=== PATIENT | male | born 1985 | race Caucasian/White ===

== ENCOUNTER 2021-10-31 11:36 | Emergency (ER) | payer OTHER, SELFPAY ==
--- NOTE | ~2021-10-31 | CT_ITS ---
EXAMINATION: CT HEAD WITHOUT CONTRAST CT CERVICAL SPINE WITHOUT CONTRAST CLINICAL INFORMATION: Headache. Loss of consciousness. Injury. Evaluate for fracture. COMPARISON: No relevant prior imaging. TECHNIQUE: [employer] Maker images were obtained. CT imaging of the head and cervical spine was performed without contrast. Data was reformatted into multiplanar images at the acquisition workstation. This CT examination was performed using dose optimization techniques as appropriate, including one or more of the following: Automated exposure control, iterative reconstruction, and adjustment of technique factors (mA and/or kVp) according to patient size (this includes techniques or standardized protocols for targeted exams where dose is matched to indication/reason for exam). DLP: 1549 mGy-cm. FINDINGS: Head: There is no acute intracranial hemorrhage or abnormal extra-axial collection. No intracranial mass effect or midline shift. Lateral and third ventricles are normal. No hydrocephalus. Santana-white matter differentiation is preserved and there is no evidence of acute territorial infarct. The calvarium and skull base are intact. Mastoid air cells and middle ear cavities are well aerated. No active paranasal sinus disease. Cervical spine: Alignment is normal. Vertebral heights are preserved. No acute fracture. No abnormal prevertebral soft tissue swelling. Grossly no evidence of canal compromise. No bony neuroforaminal encroachment. Soft tissues of the neck including the thyroid gland are normal. Visualized lung apices are clear. CT/CT head/brain wo con IMPRESSION: Unremarkable CT scan of the head and cervical spine. No acute atrial hemorrhage. No acute cervical spine fracture.
--- NOTE | ~2021-10-31 | CT_ITS ---
EXAMINATION: CT ABDOMEN AND PELVIS WITHOUT CONTRAST CLINICAL INFORMATION: Bilateral upper quadrant pain. COMPARISON: None TECHNIQUE: Multidetector volumetric imaging was performed from the superior aspect of the liver through the pubic symphysis. Sagittal and coronal reformatted images were obtained on the technologist's workstation. This CT examination was performed using dose optimization techniques as appropriate, variously including the following: *Automated exposure control *Adjustment of mA and/or kV according to patient size (this includes techniques or standardized protocols for targeted exams where dose is matched to indication/reason for exam; i.e. extremities or head) *Use of iterative reconstruction technique DLP: 790 mGy-cm FINDINGS: LUNG BASES: There is minimal right basilar atelectatic change. The heart size is normal. LIVER, GALLBLADDER, AND BILIARY TREE: The liver is enlarged in size measuring 19 cm. Liver is shape, and diffusely attenuated. No focal hepatic lesion or biliary ductal dilatation is present. The gallbladder is unremarkable with no evidence of radiopaque gallstones, gallbladder wall thickening, or obvious pericholecystic inflammatory changes. PANCREAS: Unremarkable. SPLEEN: Unremarkable. ADRENAL GLANDS: Unremarkable. KIDNEYS AND URETERS: The kidneys are normal in size, shape, and attenuation. No hydronephrosis, hydroureter, or calculi seen. No perinephric stranding. BLADDER: Unremarkable. GASTROINTESTINAL TRACT: The small and large bowel are unremarkable. The appendix is unremarkable. ABDOMINAL WALL: Small lumbar canal hernia containing fat. LYMPH NODES: Normal. VASCULAR: Unremarkable. PELVIC VISCERA: Unremarkable. OSSEOUS STRUCTURES: Unremarkable. CT/CT abdomen pelvis wo con IMPRESSION: No acute intra-abdominal process seen. Especially no abnormality seen in the upper quadrants except for diffuse hepatic steatosis and mild hepatomegaly. Fleischner guidelines were followed.
--- NOTE | ~2021-10-31 | CT_ITS ---
EXAMINATION: CT HEAD WITHOUT CONTRAST CT CERVICAL SPINE WITHOUT CONTRAST CLINICAL INFORMATION: Headache. Loss of consciousness. Injury. Evaluate for fracture. COMPARISON: No relevant prior imaging. TECHNIQUE: Shoulder Joiner images were obtained. CT imaging of the head and cervical spine was performed without contrast. Data was reformatted into multiplanar images at the acquisition workstation. This CT examination was performed using dose optimization techniques as appropriate, including one or more of the following: Automated exposure control, iterative reconstruction, and adjustment of technique factors (mA and/or kVp) according to patient size (this includes techniques or standardized protocols for targeted exams where dose is matched to indication/reason for exam). DLP: 1549 mGy-cm. FINDINGS: Head: There is no acute intracranial hemorrhage or abnormal extra-axial collection. No intracranial mass effect or midline shift. Lateral and third ventricles are normal. No hydrocephalus. Santana-white matter differentiation is preserved and there is no evidence of acute territorial infarct. The calvarium and skull base are intact. Mastoid air cells and middle ear cavities are well aerated. No active paranasal sinus disease. Cervical spine: Alignment is normal. Vertebral heights are preserved. No acute fracture. No abnormal prevertebral soft tissue swelling. Grossly no evidence of canal compromise. No bony neuroforaminal encroachment. Soft tissues of the neck including the thyroid gland are normal. Visualized lung apices are clear. CT/CT cervical spine wo con IMPRESSION: Unremarkable CT scan of the head and cervical spine. No acute atrial hemorrhage. No acute cervical spine fracture.
--- NOTE | ~2021-10-31 | XR_ITS ---
EXAMINATION: CHEST AND LEFT RIBS. RIGHT SHOULDER. CLINICAL INFORMATION: Injury rule out fracture. Pain left wrist and right shoulder COMPARISON: None TECHNIQUE: Chest and left RIBS 4 views. Right shoulder 4 views. FINDINGS: Chest: The lungs are well-expanded and clear of acute process. Heart size and pulmonary vascularity is normal. There is no pneumothorax or pleural effusion. No gross bony abnormality. Multiple views left RIBS reveal no visible fracture or dislocation. Right shoulder: There is loss of glenohumeral joint space with periarticular spurring. The AC joint space is reduced as well. No visible acute fracture, dislocation or subluxation seen. No abnormal soft tissue swelling seen. XR/XR ribs LT min 3V w CXR1V IMPRESSION: Unremarkable chest and left shoulder exam. Mild degenerative changes right shoulder and AC joint.
--- NOTE | ~2021-10-31 | XR_ITS ---
EXAMINATION: CHEST AND LEFT RIBS. RIGHT SHOULDER. CLINICAL INFORMATION: Injury rule out fracture. Pain left wrist and right shoulder COMPARISON: None TECHNIQUE: Chest and left RIBS 4 views. Right shoulder 4 views. FINDINGS: Chest: The lungs are well-expanded and clear of acute process. Heart size and pulmonary vascularity is normal. There is no pneumothorax or pleural effusion. No gross bony abnormality. Multiple views left RIBS reveal no visible fracture or dislocation. Right shoulder: There is loss of glenohumeral joint space with periarticular spurring. The AC joint space is reduced as well. No visible acute fracture, dislocation or subluxation seen. No abnormal soft tissue swelling seen. XR/XR shoulder RT min 2V IMPRESSION: Unremarkable chest and left shoulder exam. Mild degenerative changes right shoulder and AC joint.
[2021-10-31 12:14] VITALS: BP 158/95; PULSE 90; RESP 18; TEMP 36.7; O2SAT 95; BMI 31.5
[2021-10-31 13:39] LABS: MANUAL DIFF FLAG NO
[2021-10-31 13:40] LABS: Basophils Percent Auto 0.4 % (0-2); Eosinophils Absolute Auto 0.1 X10*3/uL (0.0-0.4); Eosinophils Percent Auto 0.9 % (0-4); Hematocrit 39.6 % (42.0-52.0); Hemoglobin 13.7 g/dl (14.0-18.0); Imm Gran Abs Auto 0.03 X10*3/uL (0.00-0.03); Imm Gran Pct Auto 0.3 % (0.0-0.4); Lymphocytes Absolute Auto 2.3 X10*3/uL (1.2-4.9); Lymphocytes Percent Auto 20.1 % (20-40); Mean Corpuscular HGB Conc 34.6 g/dl (31.0-36.0); Mean Corpuscular Hemoglobin 30.5 pg (27.0-33.0); Mean Corpuscular Volume 88.2 fL (80.0-98.0); Mean Platelet Volume 8.9 fL (9.4-12.4); Monocytes Percent Auto 9.2 % (2-11); Neutrophils Absolute Auto 7.8 x10*3/uL (2.0-8.3); Neutrophils Percent Auto 69.1 % (45-73); Platelet Count 312 X10*3/uL (160-400); Red Blood Count 4.49 X10*6/uL (4.60-5.80); White Blood Count 11.3 X10*3/uL (4.8-10.8)
[2021-10-31 14:23] LABS: Alanine Aminotransferase 144 U/L (0-40); Albumin Level 4.2 g/dL (3.5-5.0); Alkaline Phosphatase 94 U/L (39-117); Anion Gap 13 (12-20); Aspartate Amino Transferase 73 U/L (5-37); Bilirubin Direct 0.3 mg/dL (0.0-0.5); Bilirubin Total 0.7 mg/dL (0.0-1.0); Blood Urea Nitrogen 10 mg/dL (9-16); Calcium 9.2 mg/dL (8.4-10.2); Carbon Dioxide 24 mmol/L (22-29); Chloride 107 mmol/L (96-108); Estimated Glomerular Filt Rate > 60; Glucose Random 106 mg/dL (60-115); Potassium 3.9 mmol/L (3.3-5.1); Sodium 140 mmol/L (135-145); Total Protein 7.5 g/dL (6.5-8.0)
[2021-10-31 14:31] LABS: Appearance Urine CLEAR; Color Urine YELLOW; Glucose Urine UA NEG (NEG); Leukocyte Esterase Urine NEG (NEG); Nitrite Urine NEG (NEG); Specific Gravity - Urine <= 1.005 (1.005-1.025); Urine Blood NEG (NEG); Urine Ketones NEG (NEG); Urine Protein NEG (NEG-TRACE)
[2021-10-31 16:31] VITALS: BP 137/69; PULSE 77; RESP 18; TEMP 37.1; O2SAT 98
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
== END 2021-10-31 16:58 | disposition home or self-care (01) ==
PROVIDERS: Physician Assistant Medical; Emergency Provider Emergency Medicine; PCP Family Medicine
DX: S06.0X9A Concussion with loss of consciousness of unspecified duration, initial encounter (principal); S46.911A Strain of unspecified muscle, fascia and tendon at shoulder and upper arm level, right arm, initial encounter; R07.81 Pleurodynia; M54.2 Cervicalgia; M54.50 Low back pain, unspecified; V47.5XXA Car driver injured in collision with fixed or stationary object in traffic accident, initial encounter; Y93.9 Activity, unspecified; Y92.410 Unspecified street and highway as the place of occurrence of the external cause; Y99.9 Unspecified external cause status; R10.9 Unspecified abdominal pain; Z79.899 Other long term (current) drug therapy
CPT/HCPCS: 36415; 70450; 71101; 72125; 73030; 74176; 80048; 80076; 81003; 85025; 99284

== ENCOUNTER 2024-08-01 13:24 | Emergency (ER) | payer BC, SELFPAY ==
[2024-08-01 14:03] VITALS: BP 133/93; PULSE 88; RESP 18; TEMP 36.2; O2SAT 95; BMI 32.8
--- NOTE | 2024-08-01 14:25 | ED.GENADULT ---
HPI - General Adult General Chief complaint: Back Pain/Injury Stated complaint: back pain Time Seen by Provider: 08/01/24 14:13 Source: patient Mode of arrival: ambulatory Limitations: no limitations History of Present Illness ED Provider: Doron Huffman HPI narrative: 39 yold male with pmh of chronic back pain presents to the ED for back pain exacerbation. patient denies any recent trauma, abdominal pain, nasuea, vomitting, genitourinary symptoms, or any urinary/bowel incontinence. patient denies any IV drug use. Patient has MRI scheduled for 08/06/2024. Related Data Previous Rx's ?Medication ?Instructions ?Recorded prednisone 20 mg tablet 40 mg (2 x 20 mg) PO DAILY 5 days 08/01/24 #10 tabs Allergies Allergy/AdvReac Type Severity Reaction Status Date / Time No Known Allergies Allergy Verified 08/01/24 14:05 [No Known Allergies*] Review of Systems Review of Systems: chronic back pain exacerbation. Yes all other systems are reviewed and are negative PMFSH Social History Social History Advance Directives: No Advance Directives Information Provided: No Physical Exam ED Vital Signs: Vital Signs - 24 hr 08/01/24 14:03 Temperature 97.1 F Pulse Rate 88 Respiratory Rate 18 Blood Pressure 133/93 H Pulse Oximetry 95 BMI result Body Mass Index 32.8 Const General: cooperative, healthy appearing, comfortable, no acute distress, well developed, alert, awake and Physically active Orientation/consciousness: patient oriented x3 HENMT Head: Yes normal to inspection, Yes No palpable skull fracture present, Yes normocephalic and Yes atraumatic Throat: Yes posterior oropharynx normal, Yes tonsils normal and Yes uvula midline Eyes General: appearance normal, both eyes and all related structures Neck Neck: Yes normal visual inspection, Yes full ROM, Yes no lymphadenopathy, Yes no meningeal signs, Yes trachea midline, Yes supple, No anterior neck swelling and No lymphadenopathy Chest Chest palpation & inspection: normal inspection of the chest and normal palpation of entire chest wall Resp Effort & Inspection: normal respiratory effort and able to speak in complete sentences Auscultation: clear to auscultation bilaterally Cardio Jugular venous distension: no JVD Heart sounds: S1 normal heart sound present and S2 normal heart sound present GI Inspection: Yes normal to inspection Palpation (GI): Soft to palpation, not firm, nontender, no guarding and not rigid General: Yes no CVA tenderness Back/Spine/Pelvis Back: no CVA tenderness and back tenderness (lumbar spine tenderness) Skin General skin exam: no rashes or lesions noted, elasticity normal and turgor normal Neuro General: patient oriented x3, gait normal, tone normal, moves all extremities, Normal light touch and pain sensation, no meningeal signs, no focal motor deficits and CN's II-XI intact bilaterally Extrem General: Yes normal to inspection, Yes full ROM and Yes capillary refill normal Psych Appearance: grossly normal, well kempt and not disheveled Medications Administered Discontinued Medications Generic Name Dose Route Start Last Admin Trade Name Freq PRN Reason Stop Dose Admin Ketorolac Tromethamine 30 mg 08/01/24 14:13 08/01/24 14:27 Ketorolac Tromethamine 30 Mg/Ml Vial IM 08/01/24 14:14 30 mg ONCE ONE Administration Medical Decision Making Medical Decision Making MDM Narrative: 39 yold male with pmh of chronic back pain presents to the ED for chronic back pain exacerbation. Patient denies any recent trauma. Patient denies any urinary/bowel incontinence, paralysis of extremities, or history of IV drug use. Patient does not want repeat x-ray patient has multiple x-rays in the past. Patient has a scheduled MRI for the 06 of August. Patient just wants pain medication. Patient has naproxen and cyclobenzaprine prescription being sent by PCP. Patient will be discharged with steroids. Patient given Toradol. Patient explained worrisome signs and informed to return to the ED immediately. Not suspecting cauda equinus, epidural abscess, osteomyelitis, kdiney stones, UTI, pylenoprhreitis, or any other life-threatening etiology. Differential Diagnosis Differential Diagnoses: The differential diagnosis associated with the presentation includes (Chronic back pain) Admission/Observation Consideration of admission/observation: Escalation of care including admission/observation considered Independent Historian Clinical information obtained from an independent historian. History obtained from or confirmed by: Other (Patient) Prescription Management I considered prescription management with: Pain Medication Discharge Plan Discharge Clinical Impression: Lumbar radiculopathy Patient Disposition: Home, Self-Care Instructions: Lumbar Radiculopathy (ED) Additional Instructions: Recommend follow-up with your primary care provider. Return to the ED immediately for any urinary/bowel incontinence, severe back pain, paralysis of lower extremities, genital numbness, abdominal pain, dysuria, hematuria, flank pain, fever, chills, or any other concerning symptoms. Continue taking naproxen and cyclobenzaprine prescribed by her PCP. You will be also discharged with prednisone Prescriptions: New prednisone 20 mg tablet 40 mg PO DAILY 5 Days Qty: 10 0RF Stand Alone Forms: Work/School Release Discharge Date/Time: 08/01/24 14:39 Print Language: Upper Sorbian
[2024-08-01] MEDS: Ketorolac Tromethamine 30 MG/ML VIAL IM (14:27)
--- OUTSIDE RECORDS SUMMARY | 2024-08-01 17:35 | XMS_ITS | Encounter Summary ---
Author Name [facility] [place] [facility] [facility] [place] Address [address] [place] [address] Care Team Providers Care Riprap Man Name Role Phone CEDRIC CLARK Primary Care Provider Kraig roca Insurance Providers: All historical and current Section Date Range: From patient's date of to the date document was created. This section includes the names of all active insurance providers for the patient. Insurance Provider Type of Coverage Plan Name Start of Policy Coverage End of Policy Coverage Group Number Member ID Insurance Provider's Telephone Number Policy Brooks's Name Patient's Relationship to Policy Brooks [facility] Dec 04, 2023 [id number] [phone] FR SARBJIT HAYES PATIENT Selected Encounter This section includes the information on record at [place] for the Encounter. Date/Time Encounter Type Encounter Description Reason Provider Source Feb 15, 2024 03:00 PM PSYTX W PT 60 MINUTES [facility] - IND ICD-10-CM F33.8 Other recurrent depressive disorders KRANTHI RIVERA Encounter Template Text not used by [place] Assessments - Encounter Diagnoses This section includes the primary and secondary diagnoses documented for the Encounter. Date/Time Primary/Secondary Diagnosis Diagnosis Name Provider Source Feb 15, 2024 04:03 PM PRIMARY Other recurrent depressive disorders KRANTHI RIVERA [place] [facility] [place] [facility] Plan of Treatment: Future Appointments (+ 6 months) and Future Tests (+/- 45 days) The Plan of Treatment section includes future care activities for the patient [facility] [place] [facility] This section includes future appointments and future orders which are active, pending or scheduled. Future Appointments This section includes appointments that were scheduled to occur 6 months from the date of the Encounter, up to a maximum of 20 appointments. The data comes from all [facility]. Appointment Date/Time Appointment Type Appointme nt Facility Name Feb 16, 2024 03:00 PM AM[place]ULATORY - [place]ICINE [place] [facility] [place] [facility] Feb 29, 2024 03:00 PM AMBULATORY - [place]CHIATRY [place] [facility] [place] [facility] Mar 12, 2024 01:00 PM AMBULATORY - [place]ICINE [place] [facility] [place] [facility] Mar 14, 2024 03:00 PM AMBULATORY - [place]IATRY [place] [facility] [place] [facility] Mar 28, 2024 03:00 PM AMBULATORY - [place]IATRY [place] [facility] [place] [facility] Apr 18, 2024 03:00 PM AMBULATORY - [place]IATRY [place] [facility] [place] [facility] May 01, 2024 03:00 PM AMBULATORY - [place]IATRY [place] [facility] [place] [facility] May 08, 2024 10:00 AM AMBULATORY - [place]ICINE [place] [facility] [place] [facility] May 16, 2024 03:00 PM AMBULATORY - PS[place]IATRY [place] [facility] [place] [facility] Jul 18, 2024 03:00 PM AMBULATORY - [place]IATRY [place] [facility] [place] [facility] Jul 24, 2024 10:30 AM AMBULATORY - [place]IATRY [place] [facility] [place] [facility] Aug 01, 2024 03:00 PM AMBULATORY - [place]IATRY [place] [facility] [place] [facility] Active, Pending, and Scheduled Orders This section includes a listing of several types of active, pending, and scheduled orders, including clinic medications orders, diagnostic test orders, procedure orders and consult orders; where the start date of the order is 45 days before the date of the Encounter or 45 days after the date of theEncounter. The data comes from all [facility]. Test Date/Time Test Type Test Details Facility Name Feb 16, 2024 12:00 AM Laboratory - Chemi stry Order CBC BLOOD (LAV-BLOOD) SP [facility] Feb 16, 2024 12:00 AM Laboratory - Chemi stry Order OCCULT BLOOD FIT X1 SCREEN(IN-HOUSE) STOOL FECES SP [facility] Feb 16, 2024 12:00 AM Laboratory - Chemi stry Order UREA NITROGEN BLOOD (SST-SERUM) SP [facility] Feb 16, 2024 12:00 AM Laboratory - Chemi stry Order HEPATITIS B SURFACE ANTIBODY (HBsAb)-WH BLOOD (SST-SERUM) SP [facility] Social History: Smoking Status (Most current) and Tobacco Use (All prior to encounter date) This section includes the most current, and the historical, smoking and tobacco- related health factors from the [place] facility where the Encounter took place. Current Smoking Status This section includes the most current smoking, or tobacco-related health factor, from the [place] facility where the Encounter took place. Date/Time Current Smoking Status Comment Facil ity Aug 11, 2023 03:00 PM VA-TOBACCO NEVER USED [facility] Tobacco Use History This section includes a history of the smoking, or tobacco-related health factors, that were collected on or before the date of the Encounter. The data comes from the [place] facility where the Encounter took place. Date/Time Smoking Status/Tobacco Use Comment F acility Aug 12, 2022 03:30 PM VA-TOBACCO NEVER USED [facility] Aug 12, 2021 03:30 PM VA-TOBACCO NEVER USED [facility] Aug 03, 2020 03:00 PM VA-TOBACCO NEVER USED [facility] Radiology Reports: +/- 30 days of the encounter Radiology Reports For cases when an order for radiology services may have been completed prior to the date of the Encounter, the report list includes the Radiology Reports that were completed up to 30 days before dateof the Encounter. For cases when an order for radiology services may have been completed after the date of the Encounter, the report list also includes the Radiology Reports that were completed up to30 days after date of the Encounter. The data comes from all [place] treatment facilities. 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 Comparison: None. Findings: The bony mineralization is normal. No soft tissue swelling is identified. There is no bony fracture, dislocation or subluxation. The plantar arch is maintained. No calcaneal spurs are seen. Trace punctate calcific enthesopathy at the Achilles tendon insertion upon the superior calcaneus. Likely small accessory ossicle adjacent to the proximal aspect of the right fifth metatarsal bone. The foot joint spaces are normal and well-maintained. No acute bony abnormality is seen. Impression: No acute bony abnormality, as described above. Primary Diagnostic Code: No immediate attention required Primary Interpreting Staff: SUSHMA POWELL JR, Radiologist (Language Pathologist) /SUSHMA MAGUIRE JR [facility] Encounter Notes: All associated encounter notes This section contains the clinical notes associated to the Encounter. Date/Time Encounter Note(s) Provider Source Feb 15, 2024 03:22 PM TELEHEALTH NOTE: LOCAL TITLE: [place] [facility] PSYCHOLOGY NOTE STANDARD TITLE: TELEHEALTH NOTE DATE OF NOTE: FEB 15, 2024@15:22 ENTRY DATE: FEB 15, 2024@15:22:11 AUTHOR: ROBER RIVERA EXP COSIGNER: URGENCY: STATUS: COMPLETED BHIP Individual Therapy Note (VVC) [place] [facility] (cl[facility] to non-[facility] location) 's location: Provider confirmed that Axel is currently located at Primary Address listed in [place] [facility] consult and verified the contact phone number has provided verbal consent either today or previously when seen via [facility] in mental health. This consent was obtained after a full explanation of the risk and benefits of using telehealth for mental health appointments. Alternatives for obtaining care through an in-person mental health visit and the 's right of refusal at any time during this session have been explained. 's location/environment was surveyed by this provider to identify all participants and the Virtual Medical Room was locked (via enabling button option in VMR) once all invited/required attendees were present. [place] identified with 2 identifiers: [X] Patient Name [X] Visual recognition Procedure: The patient was seen for a 55-minute [facility] individual psychotherapy session The Outpatient Individual Psychotherapy Services Agreement was reviewed on 02/15/24. Agreed to meet for 8 weekly to twice monthly individual therapy appointments utilizing aspects of Acceptance and Committment Therapy. Problem: Difficulty managing distressing thoughts and feelings related to stressors and deaths of loved ones Objectives: Axel will engage in individual, weekly psychotherapy to increase his ability to tolerate distressing emotional experiences and to engage in behaviors that are consistent with his values. Progress: spoke about use of acceptance since last session. He reflected on worry thoughts and fears about the upcoming winter weather and the potential impact on his mood. Considered ways to defuse from these. Explored a metaphor related to his expectations of a favorite food (chicken parm) and engaged in a defusion word practice repeating the phrase cold and dark. [place] explored ideas about how he can give himself space and breathe into the fall rather than bracing against it and assuming he will not be able to cope with aspects of winter. He committed to utilize these ideas between now and the next session. Assessment: Axel arrived on time and was dressed appropriately with appropriate hygiene. He maintained appropriate eye contact and was alert. spoke clearly and coherently. His thoughts were linear and related. His affect was congruent to content and appropriate in range. There was no evidence of AH/VH or delusions. There was no evidence of SI or HI. Axel was future oriented, clearly invested in improving the quality of his life. He reported a history of passive, fleeting suicidal ideation without lifetime intent, plan, or behavior. [place] was reminded of emergency resources through this [facility] and the [facility] Line number. Thus, current assessment of risk for suicide and homicide is low. DSM 5 Diagnostic Impressions Per Chart: Major Depressive Disorder, mild Plan: 's next visit is scheduled for February at 3pm via VV. He requested to receive [facility] measures via text message on at 11am. /jonathan/ Rober Rivera, PhD Clinical Psychologist, [facility] Health Clinic Signed: 02/15/2024 16:03 ROBER RIVERA [place] [facility] [place] [facility] Feb 15, 2024 03:03 PM MENTAL HEALTH DIAG NOSTIC STUDY NOTE: LOCAL TITLE: MENTAL HEALTH DIAGNOSTIC STUDY STANDARD TITLE: MENTAL HEALTH DIAGNOSTIC STUDY NOTE DATE OF NOTE: FEB 15, 2024@15:03:54 ENTRY DATE: FEB 15, 2024@15:03:54 AUTHOR: ROBER RIVERA EXP COSIGNER: URGENCY: STATUS: COMPLETED Assessments were sent to the [place] via text/email. These assessments were completed by TRACY HAYES on their own device on 02/15/2024 3:02:13 PM. PATIENT HEALTH QUESTIONNAIRE-9 (PHQ-9) The patient reported some symptoms of depression; symptoms are not consistent with a major depressive episode. Patient reported being bothered by the following over the last 2 weeks: 1. Little interest or pleasure: Not at all 2. Feeling down, depressed or hopeless: Several Days 3. Trouble sleeping: Several Days 4. Tired, low energy: More than half the days 5. Poor appetite, over-eating: Several Days 6. Feelings of failure, guilt: Not at all 7. Trouble concentrating: Several Days 8. Motor retardation, agitation: Not at all 9. Thoughts better off /hurting self: Not at all PHQ-9 total score = 6 1-4 = minimal symptoms 5-9= mild symptoms 10-14= moderate symptoms 15-19= moderately severe symptoms 20-27= severe depressive symptoms The patient stated that the depressive symptoms made it somewhat difficult to work, take care of things at home, or get along with others. PHQ-9 Total Score (past 180 days): 02/15/2024 6 02/01/2024 11 01/18/2024 9 01/11/2024 7 01/04/2024 9 12/21/2023 6 12/01/2023 4 11/16/2023 4 10/19/2023 7 09/14/2023 4 THE ACCEPTANCE AND ACTION QUESTIONNAIRE-II (AAQ-II) The patient rated how true each statement is for them as follows: 1. It's OK if I remember something unpleasant: Seldom true 2. My painful experiences and memories make it difficult for me to live a life that I would value: Very seldom true 3. I am afraid of my feelings: Seldom true 4. I worry about not being able to control my worries and feelings: Seldom true 5. My painful memories prevent me from having a fulfilling life: Very seldom true 6. I am in control of my life: Sometimes 7. Emotions cause problems in my life: Very seldom true 8. It seems like most people are handling their lives better than I am: Never true 9. Worries get in the way of my success: Seldom true 10. My thoughts and feelings do not get in the way of how I want to live my life: Seldom true Total Score: 50 Scores range from 10 to 70 with higher scores indicating greater psychological flexibility. AAQ-II Total Score (past 180 days): 02/15/2024 50 01/18/2024 40 01/11/2024 54 12/21/2023 45 12/01/2023 47 11/16/2023 52 10/19/2023 50 09/14/2023 43 /es/ Rober Rivera, PhD Clinical Psychologist, [facility] Health Clinic Signed: 02/15/2024 15:04 ROBER RIVERA [facility]
--- OUTSIDE RECORDS SUMMARY | 2024-08-01 17:35 | XMS_ITS | Continuity of Care Document ---
Author Name DOD-ME Organization DOD-ME Care Team Providers Care Head Of Business Development Name Role Phone DOD-ME Unavailable Unavailable Problems Combined list of problems from Department of Defense and Veterans Affairs facilities. It does not include entries that were removed or entered in error. Problem Status Onset Date Problem Type Date of Resolution Comments Source visit for: services physical Inactive Condition DoD Other Physical Therapy Inactive Condition DoD Patient Education - Injury Prevention Inactive Condition DoD Alcohol abuse Active Condition Dec Entered By: RAAD MCNALLY Comment: Alcohol Use Disorder, Mild [facility] Back pain Active Condition [facility] BRCA2 gene mutation detected Active Condition [facility] Constipation Active Condition [facility] COVID-19 Active Condition [facility]ressive disorder Active Condition [facility] Genital herpes simplex type 2 Active Condition [facility] HTN - Hypertension (SCT [id number]) Active Condition [facility] Hyperlipidemia (SCT 95382159) Active Condition [facility] Liver enzymes abnormal Active Condition [facility] Major depressive disorder Active Condition [facility] Pain in left knee Active Condition [facility] Diagnosis: ICD-10-CM 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 [facility] Diagnosis: ICD-10-CM M79.671 Pain in right foot Active Diagnosis [facility] Diagnosis: ICD-10-CM I78.1 Nevus, non-neoplastic Active Diagnosis [facility] Diagnosis: ICD-10-CM 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 Medication Details Route Status Patient Instructions Prescription Expires Prescription Number Last Dispense Date Ordering Provider Order Date Order Qty Source DICLOFENAC NA 1% GEL,TOP APPLY 2 GRAMS TOPICALL Y FOUR TIMES A DAY FOR HEEL PAIN - USE DOSING CARD PROVIDED IN BOX APPLY SMALL AMOUNT TO HEEL 3-4 TIMES DAILY TOPICA L 06/07/2024 [id number] ALLISON FOSTER 2023 100 [facility] FLUTICASONE PROPIONATE 50MCG/SPRAY SOLN,NASAL, 16GM INSTILL 1 SPRAY INTO EACH NOSTRIL TWICE DAILY FOR NASAL IRRITATI ON/INFLA MMATION NASAL ACTIVE 08/11/2024 [id number] CEDRIC CLARK 2023 1 [facility] TRETINOIN 0.025% GEL,TOP APPLY THIN LAYER TOPICALL Y AT BEDTIME NEEDED FOR ACNE TOPICA L ACTIVE 03/13/2025 [id number] ISAMAR IBARRA 2023 45 [facility] VALACYCLOVI R HCL 500MG TAB TAKE ONE TABLET BY MOUTH ONCE DAILY FOR INFECTIO N CAUSED BY A VIRUS ORAL ACTIVE 02/16/2025 [id number] CEDRIC CLARK 2023 90 [facility] Allergies, Adverse Reactions, Alerts Combined list of allergies from Department of Defense and Veterans Affairs facilities. It does not include entries that were removed or entered in error. Substance Category Reaction Severity Reaction type Status Date Reported Comments Source No Known Allergies Drug allergy (disorder) active 09/15/2009 [employer] Immunizations Combined list of available immunizations from the Department of Defense and Veterans Affairs facilities. Immunization Series Date Given Administered By Site Reaction Lot Number CVX Code Drug Teaching Assistant Status Comments Source INFLUENZA, SPLIT VIRUS, TRIVALENT, PF 2023 HEIDY CRESPO LEFT DELTO ID [id number] 140 complet ed [facility] TD (ADULT), 5 LF TETANUS TOXOID, PRESERVATIVE FREE, ADSORBED 2021 113 complet ed [facility] COVID-19 (PFIZER), MRNA, LNP-S, PF, 30 MCG/0.3 ML DOSE 3 2021 208 complet ed [facility] INFLUENZA, INJECTABLE, QUADRIVALENT, PRESERVATIVE FREE 2020 150 complet ed [facility] COVID-19 (PFIZER), MRNA, LNP-S, PF, 30 MCG/0.3 ML DOSE 2 2020 208 complet ed PFR; [id number]; 1 [facility] COVID-19 (PFIZER), MRNA, LNP-S, PF, 30 MCG/0.3 ML DOSE 1 2020 208 complet ed PFR; [id number]; 1 [facility] [place] [place] INFLUENZA, UNSPECIFIED FORMULATION 2019 88 complet ed [facility] [place] influenza, injectable, quadrivalent, contains preservative 1 2017 [id number] Se[employer]irus (SEQ) comple t ed influenza , injectabl e, quadrival ent, contains preservat alma delia DoD Influenza, injectable, Madin Hanna Canine Kidney, preservative free, quadrivalent 11 2016 [id number] 171 [employer] (SEQ) comple t ed Influenza , injectabl e, Madin [place] Canine Kidney, preservat alma delia free, quadrival ent DoD Influenza, seasonal, injectable 1 2015 141 Transcribed (TRS) complet ed Influenza , seasonal, injectabl e DoD influenza, live, intranasal, quadrivalent 9 2014 [id number] 149 [employer] (MED) complet ed influenza , live, intranasa l, quadrival ent DoD Influenza, injectable, Madin [place] Canine Kidney, preservative free 8 2013 [id number] 153 [employer] Sean. (NOV) complet ed Influenza , injectabl e, Madin Hanna Canine Kidney, preservat alma delia free DoD Influenza, seasonal, injectable 0 2012 [id number] 141 [facility] [employer] (CS) complet ed Influenza , seasonal, injectabl e DoD tetanus toxoid, reduced diphtheria toxoid, and acellular pertu is vaccine, adsorbed 0 2011 [id number] 115 Sanofi Pasteur ([facility]) complet ed tetanus toxoid, reduced diphtheri a toxoid, and acellular pertussis vaccine, adsorbed DoD Influenza, seasonal, injectable 6 2011 [id number] 141 [facility] [employer] (CS) complet ed Influenza , seasonal, injectabl e DoD vaccinia (smallpox) vaccine 1 2011 [id number] 75 [facility] ([facility]) complet ed vaccinia (smallpox ) vaccine DoD tetanus and diphtheria toxoids, adsorbed, preservative free, for adult use (5 Lf of tetanus toxoid and 2 Lf of diphtheria toxoid) 1 2011 [id number] 113 Sanofi Pasteur ([facility]) complet ed tetanus and diphtheri a toxoids, adsorbed, preservat alma delia free, for adult use (5 Lf of tetanus toxoid and 2 Lf of diphtheri a toxoid) DoD TDAP 2011 115 complet ed [facility] anthrax vaccine 2 2011 [id number] [employer] [place] ([facility]) complet ed anthrax vaccine DoD anthrax vaccine 1 2010 [id number] [employer] [place] ([facility]) complet ed anthrax vaccine DoD typhoid Vi capsular polysaccharid e vaccine 1 2010 [id number] 101 Sanofi Pasteur ([facility]) complet ed typhoid Vi capsular polysacch aride vaccine DoD Influenza, seasonal, injectable 0 2010 [id number] 141 Sanofi Pasteur ([facility]) complet ed Influenza , seasonal, injectabl e DoD influenza virus vaccine, split virus (incl. purified surface antigen)-reti red CODE 1 2009 [id number] 15 Sanofi Pasteur ([facility]) complet ed influenza virus vaccine, split virus (incl. purified surface antigen)- retired CODE DoD influenza virus vaccine, live, attenuated, for intranasal use 1 2008 [id number] 111 [employer] (MED) complet ed influenza virus vaccine, live, attenuate d, for intranasa l use DoD influenza virus vaccine, live, attenuated, for intranasal use 1 2007 [id number] 111 [employer] (MED) complet ed influenza virus vaccine, live, attenuate d, for intranasa l use DoD hepatitis A vaccine, adult dosage 2 2007 [id number] 52 Merck (MSD) complet ed hepatitis A vaccine, adult dosage DoD measles, mumps and rubella virus vaccine 1 2006 03 () Not Given measles, mumps and rubella virus vaccine DoD varicella virus vaccine 1 2006 21 () Not Given varicella virus vaccine DoD hepatitis B vaccine, adult dosage 1 2006 43 () Not Given hepatitis B vaccine, adult dosage DoD hepatitis A vaccine, adult dosage 1 2006 [id number] 52 [employer] (SKB) complet ed hepatitis A vaccine, adult dosage DoD tetanus and diphtheria toxoids, adsorbed, preservative free, for adult use (2 Lf of tetanus toxoid and 2 Lf of diphtheria toxoid) 1 2006 [id number] 09 Sanofi Pasteur ([facility]) complet ed tetanus and diphtheri a toxoids, adsorbed, preservat alma delia free, for adult use (2 Lf of tetanus toxoid and 2 Lf of diphtheri a toxoid) DoD poliovirus vaccine, inactivated 1 2006 [id number] 10 Sanofi Pasteur ([facility]) complet ed polioviru s vaccine, inactivat ed DoD influenza virus vaccine, split virus (incl. purified surface antigen)-reti red CODE 2006 [id number] 15 [employer] (SKB) complet ed influenza virus vaccine, split virus (incl. purified surface antigen)- retired CODE DoD meningococcal polysaccharid e (groups A, C, Y and W-135) diphtheria toxoid conjugate vaccine (MCV4P) 2006 [id number] 114 Sanofi Pasteur ([facility]) complet ed meningoco ccal polysacch aride (groups A, C, Y and W-135) diphtheri a toxoid conjugate vaccine (MCV4P) DoD Results Combined list of recent chemistry, hematology and other laboratory results from Department of Defense and Veterans Affairs, ranging from 15 months to all on record, depending upon the facility. Order Name Results Value Reference Range Date Interpretation Specimen Comments Source BASIC METABOLI C PANEL (non-fas ting) UREA NITROGEN [MASS/VOLU ME] IN SERUM OR PLASMA 18 mg/dL 7 - 25 08/10 Specimen Type: SERUM No comment entered. Ordering Provider: DARRIN CLARK Report Released Date/Time: Jul 27, 2023 03:16 PM Reporting [facility] [address] [address] Performing Lab: [facility] [address] [address] [facility] BASIC METABOLI C PANEL (non-fas ting) GLUCOSE [MASS/VOLU ME] IN SERUM OR PLASMA 104 mg/dL 65 - 100 08/10 H Specimen Type: SERUM No comment entered. Ordering Provider: DARRIN CLARK Report Released Date/Time: Jul 27, 2023 03:16 PM Reporting Lab: [facility] [address] [address] Performing Lab: [address] [address] [facility] BASIC METABOLI C PANEL (non-fas ting) SODIUM [MOLES/VOL UME] IN SERUM OR PLASMA 138 mmol/L 135 - 145 08/10 Specimen Type: SERUM No comment entered. Ordering Provider: DARRIN CLARK Report Released Date/Time: Jul 27, 2023 03:16 PM Reporting Lab: [facility]ITALRFAIRLAWN [facility]OSPITALUSE[address] [address] Performing Lab: [facility] [address] [facility] BASIC METABOLI C PANEL (non-fas ting) POTASSIUM [MOLES/VOL UME] IN SERUM OR PLASMA 4.0 mmol/L 3.5 - 5.0 08/10 Specimen Type: SERUM No comment entered. Ordering Provider: DARRIN CLARK Report Released Date/Time: Jul 27, 2023 03:16 PM Reporting Lab: [facility] [place] [address] [address] Performing Lab: [facility] [place] [address] [address] [facility] [place] [facility] BASIC METABOLI C PANEL (non-fas ting) CHLORIDE [MOLES/VOL UME] IN SERUM OR PLASMA 107 mmol/L 100 - 110 08/10 Specimen Type: SERUM No comment entered. Ordering Provider: DARRIN CLARK Report Released Date/Time: Jul 27, 2023 03:16 PM Reporting Lab: [facility] [place] [address] [address] Performing Lab: [facility] [place] [address] [address] [facility] [place] [facility] BASIC METABOLI C PANEL (non-fas ting) CARBON DIOXIDE, TOTAL [MOLES/VOL UME] IN SERUM OR PLASMA 24 meq/L 20 - 30 08/10 Specimen Type: SERUM No comment entered. Ordering Provider: DARRIN CLARK Report Released Date/Time: Jul 27, 2023 03:16 PM Reporting Lab: [facility] [place] [address] [address] Performing Lab: [facility] [place] [address] [address] [facility] [place] [facility] BASIC METABOLI C PANEL (non-fas ting) CREATININE [MASS/VOLU ME] IN SERUM OR PLASMA 0.87 mg/dL 0.50 - 1.40 08/10 Specimen Type: SERUM No comment entered. Ordering Provider: DARRIN CLARK Report Released Date/Time: Jul 27, 2023 03:16 PM Reporting Lab: [facility] [place] [address] [address] Performing Lab: [facility] [place] [address] [address] [facility] [place] [facility] BASIC METABOLI C PANEL (non-fas ting) GLOMERULAR FILTRATION RATE/1.73 SQ M.PREDICTE D [VOLUME RATE/AREA] IN SERUM, PLASMA OR BLOOD BY CREATININE -BASED FORMULA (CKD-EPI 2020) >90mL/mi n 60 08/10 Specimen Type: SERUM No comment entered. Ordering Provider: DARRIN CLARK Report Released Date/Time: Jul 27, 2023 03:16 PM Reporting Lab: [facility] [place] [facility] [address] [facility] [address] Performing Lab: [facility]ITAL[facility]N [place] [address] [address] [facility] [place] [facility] CBC LEUKOCYTES [#/VOLUME] IN BLOOD BY AUTOMATED COUNT 8.56 10*3/uL 4.50 - 11.00 08/10 Specimen Type: BLOOD No comment entered. Ordering Provider: DARRIN CLARK Report Released Date/Time: Jul 27, 2023 03:16 PM Reporting Lab: [facility] [place] [facility] [address] [facility] [address] Performing Lab: [facility] [place] [facility] [address] [facility] [address] [facility]ITALRL [facility] [place] [facility] CBC ERYTHROCYT ES [#/VOLUME] IN BLOOD BY AUTOMATED COUNT 4.55 10*6/uL 4.23 - 5.66 08/10 Specimen Type: BLOOD No comment entered. Ordering Provider: DARRIN CLARK Report Released Date/Time: Jul 27, 2023 03:16 PM Reporting Lab: [facility] [place] [address] [address] Performing Lab: [facility] [place] [address] [address] [facility]ITALRCHOCT[facility]ITALN [place] [facility] CBC HEMOGLOBIN [MASS/VOLU ME] IN BLOOD 14.1 g/dL 12.8 - 17 08/10 Specimen Type: BLOOD No comment entered. Ordering Provider: DARRIN CLARK Report Released Date/Time: Jul 27, 2023 03:16 PM Reporting Lab: [facility] [address] [facility] [address] Performing Lab: [facility] [address] [facility] [address] [facility] [place] [facility] CBC HEMATOCRIT [VOLUME FRACTION] OF BLOOD BY AUTOMATED COUNT 40.7 39.2 - 50.4 08/10 Specimen Type: BLOOD No comment entered. Ordering Provider: DARRIN CLARK Report Released Date/Time: Jul 27, 2023 03:16 PM Reporting Lab: [facility] [address] [facility] [address] Performing Lab: [facility] [address] [facility] [address] [facility] [place] [facility] CBC MCV [ENTITIC VOLUME] BY AUTOMATED COUNT 89.5 fL 82 - 99 08/10 Specimen Type: BLOOD No comment entered. Ordering Provider: DARRIN CLARK Report Released Date/Time: Jul 27, 2023 03:16 PM Reporting Lab: [facility] [address] [facility] [address] Performing Lab: [facility] [address] [facility] [facility] [address] [facility] [place] [facility] CBC MCHC [MASS/VOLU ME] BY AUTOMATED COUNT 34.6 g/dL 30.8 - 35.1 08/10 Specimen Type: BLOOD No comment entered. Ordering Provider: DARRIN CLARK Report Released Date/Time: Jul 27, 2023 03:16 PM Reporting Lab: [facility] [address] [facility] [address] Performing Lab: [facility] [address] [address] [facility] [place] [facility] CBC PLATELETS [#/VOLUME] IN BLOOD BY AUTOMATED COUNT 313 10*3/uL 140 - 360 08/10 Specimen Type: BLOOD No comment entered. Ordering Provider: DARRIN CLARK Report Released Date/Time: Jul 27, 2023 03:16 PM Reporting Lab: [facility]ITALRCHOCTAW [facility]AL HOSPITALN [facility]USE[address] [address] Performing Lab: [facility]ITALRCHOCTAW [facility]AL HOSPITALN [facility]ITALUSE[address] [address] [facility] CBC ERYTHROCYT E DISTRIBUTI ON WIDTH [RATIO] BY AUTOMATED COUNT 12.5 12.0 - 16.0 08/10 Specimen Type: BLOOD No comment entered. Ordering Provider: DARRIN CLARK Report Released Date/Time: Jul 27, 2023 03:16 PM Reporting Lab: [facility] [address] [address] Performing Lab: [facility] [address] [address] [facility]ITALUSE [facility] CBC MCH [ENTITIC MASS] BY AUTOMATED COUNT 31.0 pg 26.2 - 32.6 08/10 Specimen Type: BLOOD No comment entered. Ordering Provider: DARRIN CLARK Report Released Date/Time: Jul 27, 2023 03:16 PM Reporting Lab: [facility]ITALRCHOCTAW [facility]AL HOSPITALN [facility]ITALUSE[address] [address] Performing Lab: [facility]ITALRCHOCTAW GENERAL HOSPITALN [address] [address] [facility] HEMOGLOB IN A1C PANEL HEMOGLOBIN A1C/HEMOGL OBIN.TOTAL IN BLOOD BY HPLC 5.3 4.0 - 5.6 08/10 Specimen Type: BLOOD Comment: Values obtained from A1C measurement s can vary. For atypical A1C assays, a reported value of 7.0 could actually be between 6.72 and 7.28 if measured by a reference method. A reported value of 9.0 could actually be between 8.73 and 9.27. Ref: http://www. ngsp.org/[place] Pdata.asp Ordering Provider: DARRIN CLARK Report Released Date/Time: Jul 27, 2023 03:16 PM Reporting Lab: [facility] [address] [address] Performing Lab: [facility] [address] [address] [facility] HEPATITI S B SURFACE ANTIGEN (HBsAg)- WH HEPATITIS B VIRUS SURFACE AG [PRESENCE] IN SERUM OR PLASMA BY IMMUNOASSA Y Non Reactive 08/10 Specimen Type: SERUM Comment: A Reactive result ( Positive prior to 03/18/13) is diagnostic of acute or chronic hepatitis B infection. The presence of Hepatitis B surface antigen is frequently associated with infectivity . Ordering Provider: DARRIN CLARK Report Released Date/Time: Jul 27, 2023 03:16 PM Reporting Lab: [address] [address] Performing Lab: [address] [address] [facility] LIPID PANEL, NON FASTING CHOLESTERO L [MASS/VOLU ME] IN SERUM OR PLASMA 203 mg/dL 08/10 H Specimen Type: SERUM No comment entered. Ordering Provider: DARRIN CLARK Report Released Date/Time: Jul 27, 2023 03:16 PM Reporting Lab: [address] [address] Performing Lab: [facility] [address] [address] [facility] LIPID PANEL, NON FASTING TRIGLYCERI DE [MASS/VOLU ME] IN SERUM OR PLASMA 260 mg/dL 0 - 150 08/10 H Specimen Type: SERUM No comment entered. Ordering Provider: DARRIN CLARK Report Released Date/Time: Jul 27, 2023 03:16 PM Reporting Lab: [address] [address] Performing Lab: [address] [address] [facility]ITALUSE [facility] LIPID PANEL, NON FASTING CHOLESTERO L IN LDL [MASS/VOLU ME] IN SERUM OR PLASMA BY TYLOR Clark 117 mg/dL 0 - 129 08/10 Specimen Type: SERUM No comment entered. Ordering Provider: DARRIN CLARK Report Released Date/Time: Jul 27, 2023 03:16 PM Reporting Lab: [facility]PITALUSETS [address] [address] Performing Lab: [facility]ITALUSETS [facility] [address] [facility] [address] [facility]ITALRCHOCTAW [facility]AL HOSPITALN [facility]ITALUSE [facility] LIPID PANEL, NON FASTING CHOLESTERO L.TOTAL/CH OLESTEROL IN HDL [MASS RATIO] IN SERUM OR PLASMA 6.0 08/10 Specimen Type: SERUM No comment entered. Ordering Provider: DARRIN CLARK Report Released Date/Time: Jul 27, 2023 03:16 PM Reporting Lab: [facility] [place] [place] [address] [address] Performing Lab: [facility]ITALUSETS [address] [address] [facility]OSPITALRL TRN [facility]ITALUSE [facility] LIPID PANEL, NON FASTING CHOLESTERO L IN HDL [MASS/VOLU ME] IN SERUM OR PLASMA 34 mg/dL 40 - 60 08/10 L Specimen Type: SERUM No comment entered. Ordering Provider: DARRIN CLARK Report Released Date/Time: Jul 27, 2023 03:16 PM Reporting Lab: [facility] [place] [address] [address] Performing Lab: [facility]ITALUSETS [address] [address] [facility]PITALRL TRN [facility]ITALUSE [facility] LIVER FUNCTION PROTEIN [MASS/VOLU ME] IN SERUM OR PLASMA 7.3 g/dL 6.0 - 8.3 08/10 Specimen Type: SERUM No comment entered. Ordering Provider: DARRIN CLARK Report Released Date/Time: Jul 27, 2023 03:16 PM Reporting Lab: [facility] [place] [facility] [address] [facility] [address] Performing Lab: [facility] [place] [facility] [address] [facility] [address] [facility] [place] [facility] LIVER FUNCTION ALBUMIN [MASS/VOLU ME] IN SERUM OR PLASMA 3.8 g/dL 3.5 - 5.0 08/10 Specimen Type: SERUM No comment entered. Ordering Provider: DARRIN CLARK Report Released Date/Time: Jul 27, 2023 03:16 PM Reporting Lab: [facility] [place] [facility] [address] [facility] [address] Performing Lab: [facility] [place] [facility] [address] [facility] [address] [facility] [place] [facility] LIVER FUNCTION ALKALINE PHOSPHATAS E [ENZYMATIC ACTIVITY/V OLUME] IN SERUM OR PLASMA 94 U/L 40 - 150 08/10 Specimen Type: SERUM No comment entered. Ordering Provider: DARRIN CLARK Report Released Date/Time: Jul 27, 2023 03:16 PM Reporting Lab: [facility] [place] [facility] [address] [facility] [address] Performing Lab: [facility] [place] [facility] [address] [facility] [address] [facility] [place] [facility] LIVER FUNCTION ASPARTATE AMINOTRANS FERASE [ENZYMATIC ACTIVITY/V OLUME] IN SERUM OR PLASMA 37 U/L 5 - 34 08/10 H Specimen Type: SERUM No comment entered. Ordering Provider: DARRIN CLARK Report Released Date/Time: Jul 27, 2023 03:16 PM Reporting Lab: [facility] [place] [facility] [address] [facility] [address] Performing Lab: [facility] [place] [facility] [address] [facility] [facility] [address] [facility] [place] [facility] LIVER FUNCTION ALANINE AMINOTRANS FERASE [ENZYMATIC ACTIVITY/V OLUME] IN SERUM OR PLASMA 80 U/L 08/10 H Specimen Type: SERUM No comment entered. Ordering Provider: DARRIN CLARK Report Released Date/Time: Jul 27, 2023 03:16 PM Reporting Lab: [facility] [place] [facility] [address] [facility] [address] Performing Lab: [facility] [place] [facility] [address] [facility] [address] [facility] [place] [facility] LIVER FUNCTION BILIRUBIN. TOTAL [MASS/VOLU ME] IN SERUM OR PLASMA 0.4 mg/dL 0.2 - 1.2 08/10 Specimen Type: SERUM No comment entered. Ordering Provider: DARRIN CLARK Report Released Date/Time: Jul 27, 2023 03:16 PM Reporting Lab: [facility] [place] [facility] [address] [facility] [address] Performing Lab: [facility] [place] [facility] [address] [facility] [address] [facility] [place] [facility] THYROID T4 FREE(FT4 ) THYROXINE (T4) FREE [MASS/VOLU ME] IN SERUM OR PLASMA 1.14 ng/dL 0.6 - 1.6 08/10 Specimen Type: SERUM No comment entered. Ordering Provider: DARRIN CLARK Report Released Date/Time: Jul 27, 2023 03:16 PM Reporting Lab: [facility] [address] [address] Performing Lab: [facility] [place] [facility] [address] [facility] [address] [facility] TSH THYROTROPI N [UNITS/VOL UME] IN SERUM OR PLASMA 0.75 u[IU]/mL 0.35 - 5.00 08/10 Specimen Type: SERUM No comment entered. Ordering Provider: DARRIN CLARK Report Released Date/Time: Jul 27, 2023 03:16 PM Reporting Lab: [facility] [address] [address] Performing Lab: [facility] [address] [address] [facility] Vital Signs Combined list of inpatient and outpatient Vital Signs from Department of Defense and Veterans Affairs, ranging from 12 months to all on record, depending upon the facility. Vital Sign Value Date Comments Source SYSTOLIC BLOOD PRESSURE 134 05/08/20 24 10:18:15 [facility] DIASTOLIC BLOOD PRESSURE 81 024 10:18:15 [facility] PULSE OXIMETRY 96 05/08/2024 10:18:15 [facility] PAIN 0 05/08/2024 10:18:15 [facility] TEMPERATURE 98.1 05/08/2024 10:18:15 [facility] PULSE 78 05/08/2024 10:18:15 [facility] RESPIRATION 18 05/08/2024 10:18:15 [facility] SYSTOLIC BLOOD PRESSURE 143 02/16/20 24 14:59:05 [facility] DIASTOLIC BLOOD PRESSURE 82 024 14:59:05 [facility] PULSE OXIMETRY 96 02/16/2024 14:59:05 [facility] WEIGHT 226 02/16/2024 14:59:05 [facility] BMI 33 kg/m2 02/16/2024 14:59:05 [facility] PAIN 0 02/16/2024 14:59:05 [facility] HEIGHT 69 02/16/2024 14:59:05 [facility] TEMPERATURE 97.3 02/16/2024 14:59:05 [facility] PULSE 74 02/16/2024 14:59:05 [facility] RESPIRATION 20 02/16/2024 14:59:05 [facility] SYSTOLIC BLOOD PRESSURE 134 08/22/19 24 15:40:00 [facility] DIASTOLIC BLOOD PRESSURE 78 024 15:40:00 [facility] SYSTOLIC BLOOD PRESSURE 148 08/11/19 24 15:02:03 [facility] DIASTOLIC BLOOD PRESSURE 90 15:02:03 [facility] PULSE OXIMETRY 97 08/11/2023 15:02:03 [facility] WEIGHT 222 08/11/2023 15:02:03 [facility] BMI 33 kg/m2 08/11/2023 15:02:03 [facility] PAIN 0 08/11/2023 15:02:03 [facility] HEIGHT 69 08/11/2023 15:02:03 [facility] TEMPERATURE 97.8 08/11/2023 15:02:03 [facility] PULSE 71 08/11/2023 15:02:03 [facility] RESPIRATION 18 08/11/2023 15:02:03 [facility] Encounters Combined list of: 1) Encounters from Department of Veterans Affairs facilities going backup to the last 18 months, not all VA inpatient encounters are included; 2) Encounters from the Department of Defense facilities going backup to 280 months. Location Location Details Encounter Type Encounter Number Reason For Visit Attending Provider ADM Date DC Date Status Disposition Source [facility]) OUTPATIENT [id number] RHIANNON MCELROY 08/15 Released w/o Limitations [facility]) [facility] Therapy [facility]) OUTPATIENT [id number] MELA Saha 10/03 Released w/o Limitations [facility]) [facility] OUTPATIENT [id number] 12/08 Released w/o Limitations [facility] [place] [facility] [place] [address](AFN G [address] S[address]-FM) OUTPATIENT [id number] Notes Entered by: FLORENTIN BRAUN 11 Feb 2017 1014 ------- ------- ------- ------- -- PHAQ/ ongoing med issue HEATHER BRAUN 02/11 [facility]ased with [facility] [place] [address](A FNG [address] Med Sq-FM) [place] [address](AFN G 104 Med Sq-FM) OUTPATIENT [id number] Notes Entered by: KVNG RUST 07 Apr 2017 1036 ------- ------- ------- ------- -- 469 F/U HEATHER BRAUN 04/07 [facility]ased w/o Limitations [facility] [place] [address](A FNG 104 Med Sq-FM) [place] [address](AFN G 104 Med Sq-FM) OUTPATIENT [id number] Notes Entered by: LAURA BAKER 06 Oct 2017 1501 ------- ------- ------- ------- -- AVIVA 46CONCHA ALBARRAN 10/06 Released with Work/Duty Limitations [facility] [place] [address](A FNG [address] Med Sq-FM) [place] [address](AFN G 104 Med Sq-FM) OUTPATIENT [id number] Notes Entered by: STEFANIE TINAJERO 08 Feb 2018 0916 ------- ------- ------- ------- -- STEFANIE MOSLEY 02/08 Released w/o Limitations [facility] [place] [address](A FNG 104 Med Sq-FM) [place] [address](AFN G [address] Med Sq-FM) OUTPATIENT [id number] Notes Entered by: KIMO TYSON 14 Jul 2018 1029 ------- ------- ------- ------- -- Back pain foolow up KIMO TYSON 07/14 Released with Work/Duty Limitations [facility] [place] [address](A FNG 104 Med Sq-FM) [place] [address](AFN G 104 Med Sq-FM) OUTPATIENT [id number] Notes Entered by: STEFANIE TINAJERO 05 Aug 2018 1022 ------- ------- ------- ------- -- [employer] PHAQ STEFANIE TINAJERO 08/05 Released w/o Limitations [facility] [place] [address](A FNG 104 Med Sq-FM) [place] [address](AFN G 104 Med Sq-FM) OUTPATIENT [id number] Notes Entered by: LAURA BAKER 28 Aug 2018 1109 ------- ------- ------- ------- -- Annual Audiogr am KIMO TYSON 08/28 Released w/o Limitations [facility] [place] [address](A FNG 104 Med Sq-FM) [facility] PSYTX W PT 45 MINUTES [id number] Diagnos is: ICD-10- CM F33.8 Other recurre nt depress alma delia disorde ORBER Olguin 02/02 [facility] [id number] 02/16 [facility] En[facility] [id number] 02/23 [facility] PSYTX W PT 60 MINUTES [id number] Diagnos is: ICD-10- CM F10.10 Alcohol abuse, uncompl icated SUNSHINE, 03/02 [facility] PSYTX W PT 45 MINUTES [id number] Diagnos is: ICD-10- CM F33.8 Other recurre nt depress alma delia disorde rs SUNSHINE, 03/16 [facility] PSYTX W PT 45 MINUTES [id number] Diagnos is: ICD-10- CM F33.8 Other recurre nt depress alma delia disorde rs SUNSHINE, 03/23 [facility] PSYTX W PT 45 MINUTES [id number] Diagnos is: ICD-10- CM F10.10 Alcohol abuse, uncompl icated SUNSHINE, 03/30 [facility] PSYTX W PT 45 MINUTES [id number] Diagnos is: ICD-10- CM F33.8 Other recurre nt depress alma delia disorde rs SUNSHINE, 04/20 [facility] En[facility] [id number] 05/03 [facility] PSYTX W PT 45 MINUTES [id number] Diagnos is: ICD-10- CM F33.8 Other recurre nt depress alma delia disorde diana GONSALEZ, 05/18 [facility] PSYTX W PT 45 MINUTES [id number] Diagnos is: ICD-10- CM F33.8 Other recurre nt depress alma delia disorde diana GONSALEZ, 05/25 [facility] PSYTX W PT 45 MINUTES [id number] Diagnos is: ICD-10- CM F33.8 Other recurre nt depress alma delia disorde diana GONSALEZ, 06/01 [facility] PSYTX W PT 45 MINUTES [id number] [id number] Diagnos is: ICD-10- CM F33.8 Other recurre nt depress alma delia disorde diana GONSALEZ, 06/15 [facility] PSYTX W PT 45 MINUTES [id number] Diagnos is: ICD-10- CM F33.8 Other recurre nt depress alma delia disorde diana GONSALEZ, 06/22 [facility] PSYTX W PT 45 MINUTES [id number] Diagnos is: ICD-10- CM F33.8 Other recurre nt depress alma delia disorde diana GONSALEZ, 07/07 [facility] Out[facility] En[facility] [id number] 07/13 [facility] PSYTX W PT 45 MINUTES [id number] Diagnos is: ICD-10- CM F33.8 Other recurre nt depress alma delia disorde diana GONSALEZ, ROBER 07/20 [facility] PSYTX W PT 45 MINUTES [id number] Diagnos is: ICD-10- CM F33.8 Other recurre nt depress alma delia disorde diana GONSALEZ, ROBER [facility] Out[facility] Encounter [id number] 08/03 [facility] OFFICE O/P EST LOW 20 MIN [id number] Diagnos is: ICD-10- CM Z15.01 Genetic suscept ibility to maligna nt neoplas m of breast Crystal CLARK 08/10 [facility] Out[facility] Encounter [id number] 08/14 [facility] PSYTX W PT 60 MINUTES [id number] Diagnos is: ICD-10- CM F33.8 Other recurre nt depress alma delia disorde diana GONSALEZ, ROBER 08/16 [facility] PSYTX W PT 45 MINUTES [id number] Diagnos is: ICD-10- CM F33.8 Other recurre nt depress alma delia disorde diana GONSALEZ, ROBER 08/23 [facility] En[facility] [id number] 08/27 [facility] En[facility] [id number] 08/30 [facility] PSYTX W PT 45 MINUTES [id number] Diagnos is: ICD-10- CM F33.8 Other recurre nt depress alma delia disorde diana GONSALEZ, 09/13 [facility] PSYTX W PT 45 MINUTES [id number] Diagnos is: ICD-10- CM F33.8 Other recurre nt depress alma delia disorde diana GONSALEZ, 09/18 [facility] [id number] 09/27 [facility] En[facility] [id number] 10/05 [facility] PSYTX W PT 45 MINUTES [id number] Diagnos is: ICD-10- CM F33.8 Other recurre nt depress alma deila disorde diana GONSALEZ, ROBER 10/11 [facility] PSYTX W PT 60 MINUTES [id number] Diagnos is: ICD-10- CM F33.8 Other recurre nt depress alma delia disorde diana GONSALEZ, 10/18 [facility] PSYTX W PT 60 MINUTES [id number] Diagnos is: ICD-10- CM F33.8 Other recurre nt depress alma delia disorde rs SUNSHINE, 10/25 [facility] [id number] 11/01 [facility] Encounter [id number] 11/08 [facility] PSYTX W PT 60 MINUTES [id number] Diagnos is: ICD-10- CM F33.8 Other recurre nt depress alma delia disorde rs SUNSHINE, 11/15 [facility] PSYTX W PT 45 MINUTES [id number] Diagnos is: ICD-10- CM F33.8 Other recurre nt depress alma delia disorde diana GONSALEZ, 11/22 [facility] PSYTX W PT 60 MINUTES [id number] [id number] Diagnos is: ICD-10- CM F33.8 Other recurre nt depress alma delia disorde rs SUNSHINE, 11/29 [facility] PSYTX W PT 60 MINUTES [id number] [id number] Diagnos is: ICD-10- CM F33.8 Other recurre nt depress alma delia disorde rs SUNSHINE, 12/13 [facility] PSYTX W PT 45 MINUTES [id number] Diagnos is: ICD-10- CM F33.8 Other recurre nt depress alma delia disorde diana GONSALEZ, 12/20 [facility] PSYTX W PT 45 MINUTES [id number] Diagnos is: ICD-10- CM F33.8 Other recurre nt depress alma delia disorde diana GONSALEZ, 01/03 [facility] PSYTX W PT 60 MINUTES [id number] Diagnos is: ICD-10- CM F33.8 Other recurre nt depress alma delia disorde diana GONSALEZ, 01/10 [facility] PSYTX W PT 60 MINUTES [id number] Diagnos is: ICD-10- CM F33.8 Other recurre nt depress alma delia disorde diana GONSALEZ, 01/17 [facility] PSYTX W PT 60 MINUTES [id number] Diagnos is: ICD-10- CM F33.8 Other recurre nt depress alma delia disorde diana GONSALEZ, 01/31 [facility] Out[facility] En[facility] [id number] 02/08 [facility] PSYTX W PT 60 MINUTES [id number] 1. Diagnos is: ICD-10- CM F33.8 Other recurre nt depress alma delia disorde diana GONSALEZ, 02/14 [facility] OFFICE O/P EST LOW 20 MIN [id number] Diagnos is: ICD-10- CM Z15.01 Genetic suscept ibility to maligna nt neoplas m of breast CLARK,Crystal MCFARLAND J 02/15 [facility] En[facility] [id number] 02/18 [facility] PSYTX W PT 60 MINUTES [id number] 1. Diagnos is: ICD-10- CM F33.8 Other recurre nt depress alma delia disorde diana GONSALEZROBER 02/28 [facility] OFFICE O/P NEW MOD 45 MIN 65897-5.63 1. Diagnos is: ICD-10- CM I78.1 Nevus, non-richard plastic LUISAICZ, ISAMAR 03/12 [facility] PSYTX W PT 45 MINUTES [id number] [id number] Diagnos is: ICD-10- CM F33.8 Other recurre nt depress alma delia disorde diana GONSALEZROBER 03/14 [facility] PSYTX W PT 45 MINUTES [id number] Diagnos is: ICD-10- CM F33.8 Other recurre nt depress alma delia disorde diana GONSALEZROBER 03/28 [facility] PSYTX W PT 45 MINUTES [id number] 1. Diagnos is: ICD-10- CM F33.8 Other recurre nt depress alma delia disorde diana GONSALEZROBER 04/18 [facility] PSYTX W PT 45 MINUTES [id number] 1. Diagnos is: ICD-10- CM F33.8 Other recurre nt depress alma delia disorde ROBER Olguin 05/01 [facility] OFFICE O/P NEW LOW 30 MIN 57439-6.63 1. Diagnos is: ICD-10- CM M79.671 Pain in right foot NEIDA FOSTER D 05/08 [facility] PSYTX W PT 45 MINUTES [id number] [id number] Diagnos is: ICD-10- CM F33.8 Other recurre nt depress alma delia disorde ROBER Olguin 05/16 [facility] Outpatient Encounter [id number] 06/11 [facility] PSYTX W PT 45 MINUTES [id number] [id number] Diagnos is: ICD-10- CM F33.8 Other recurre nt depress alma delia disorde ROBER Olguin 07/18 [facility] PSYTX W PT 45 MINUTES [id number] Diagnos is: ICD-10- CM F33.8 Other recurre nt depress alma delia disorde ROBER Olguin 07/24 [facility] Procedures Combined list of: 1) Procedures from Department of Veterans Affairs facilities going back up to thelast 18 months, not all VA non-surgical procedures are included; 2) All procedures from the Department of Defense facilities. Procedure Procedure Type Code Date Perfomer Comments Sourc e THERAPEUTIC PROCEDURE(S), GROUP (2 OR MORE INDIVIDUALS) 10/03/2006 [facility] THERAPEUTIC PROCEDURE(S), GROUP (2 OR MORE INDIVIDUALS) 08/15/2006 [facility] INJECTION, PENICILLIN G BENZATHINE AND PENICILLIN G PROCAINE, UP TO 1,200,000 UNITS 06/28/2006 [facility] Physical Medicine - Group Physical Therapy Se ion Physical Medicine - Group Physical Therapy Session [id number] 10/03/[address] [facility] Physical Medicine - Group Physical Therapy Se ion Physical Medicine - Group Physical Therapy Session [id number] 08/16/[address] [facility] Social History Combined list of available smoking, tobacco, and other social history from Department of Defense and Veterans Affairs facilities. Social History Type Response Date Comment Sour e Tobacco smoking status NHIS VA-TOBACCO NEVER USED 08/11/2023 [facility] History of tobacco use VA-TOBACCO NEVER USED 08/12/2022 [facility] History of tobacco use VA-TOBACCO NEVER USED 08/12/2021 [facility] History of tobacco use VA-TOBACCO NEVER USED 08/03/2020 [facility] This section is an empty social history section. DoD Plan of Care List of future care activities from Department of Veterans Affairs facilities. Additional future care activities may be listed in the Assessment and Plan section. Date/Time Care Activity Care Activity Detail Facili ty 08/01/2024 AMBULATORY - PSYCHIATRY AMBULATORY - PSYC HIATRY [facility] 08/16/2024 AMBULATORY - MEDICINE AMBULATORY - MEDICI NE [facility]
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
--- OUTSIDE RECORDS SUMMARY | 2024-08-01 17:35 | XMS_ITS | Encounter Summary ---
Author Name [facility] [place] [facility] [place] Address [address] [place] [address] Care Team Providers Care Client Leader Name Role Phone CEDRIC CLARK Primary Care [...] Brooks's Name Patient's Relationship to Policy Brooks [facility] DEPT Dec 04, 2023 [id number] [phone] FR SARBJIT HAYES PATIENT Selected Encounter This section includes the information on record at [place] for the Encounter. Date/Time Encounter Type Encounter Description Reason Provider Source Jul 18, 2024 03:00 PM PSYTX W PT 45 MINUTES [facility] - IND ICD-10-CM F33.8 Other recurrent depressive disorders KRANTHI RIVERA Rick Encounter Template Text not used by [place] Assessments - Encounter Diagnoses This section includes the primary and secondary diagnoses documented for the Encounter. Date/Time Primary/Secondary Diagnosis Diagnosis Name Provider Source Jul 18, 2024 03:57 PM PRIMARY Other recurrent depressive disorders KRANTHI RIVERA [place] [facility] Plan of Treatment: Future Appointments (+ 6 months) and Future Tests (+/- 45 days) The Plan of Treatment section includes future care activities for the patient from all [place] [facility] This section includes future appointments and future orders which are active, pending or scheduled. Future Appointments This section includes appointments that were scheduled to occur 6 months from the date of the Encounter, up to a maximum of 20 appointments. The data comes from all [place] treatment facilities. Appointment Date/Time Appointment Type Appointme nt Facility Name Jul 24, 2024 10:30 AM AM[place]UL[place] [place] [place] [facility] Aug 01, 2024 03:00 PM [place] [facility] [place] [facility] Aug 16, 2024 03:00 PM [facility] [place] [facility] Social History: Smoking Status (Most current) and Tobacco Use (All prior to encounter date) This section includes the most current, and the historical, smoking and tobacco- related health factors from the [place] facility where the Encounter took place. Current Smoking Status This section includes the most current smoking, or tobacco-related health factor, from the [place] facility where the Encounter took place. Date/Time Current Smoking Status Comment Facil ity Aug 11, 2023 03:00 PM VA-TOBACCO NEVER USED [facility] Tobacco Use History This section includes a history of the smoking, or tobacco-related health factors, that were collected on or before the date of the Encounter. The data comes from the [place] facility where the Encounter took place. Date/Time Smoking Status/Tobacco Use Comment F acility Aug 12, 2022 03:30 PM VA-TOBACCO NEVER USED [place] [facility] [place] [facility] Aug 12, 2021 03:30 PM VA-TOBACCO NEVER USED [place] [facility] [place] [facility] Aug 03, 2020 03:00 PM VA-TOBACCO NEVER USED [facility] Encounter Notes: All associated encounter notes This section contains the clinical notes associated to the Encounter. Date/Time Encounter Note(s) Provider Source Jul 19, 2024 08:24 AM MENTAL HEALTH DIAG NOSTIC STUDY NOTE: LOCAL TITLE: MENTAL HEALTH DIAGNOSTIC STUDY STANDARD TITLE: MENTAL HEALTH DIAGNOSTIC STUDY NOTE DATE OF NOTE: JUL 19, 2024@08:24:02 ENTRY DATE: JUL 19, 2024@08:24:02 AUTHOR: ROBER RIVERA EXP COSIGNER: URGENCY: STATUS: COMPLETED Assessments were sent to the [facility] via text/email. These assessments were completed by TRACY HAYES on their own device on 07/18/2024 4:47:59 PM. PATIENT HEALTH QUESTIONNAIRE-9 (PHQ-9) The patient reported symptoms consistent with a major depressive episode. Patient reported being bothered by the following over the last 2 weeks: 1. Little interest or pleasure: More than half the days 2. Feeling down, depressed or hopeless: More than half the days 3. Trouble sleeping: Several Days 4. Tired, low energy: More than half the days 5. Poor appetite, over-eating: More than half the days 6. Feelings of failure, guilt: More than half the days 7. Trouble concentrating: Several Days 8. Motor retardation, agitation: Several Days 9. Thoughts better off /hurting self: Not at all PHQ-9 total score = 13 1-4 = minimal symptoms 5-9= mild symptoms 10-14= moderate symptoms 15-19= moderately severe symptoms 20-27= severe depressive symptoms The patient stated that the depressive symptoms made it somewhat difficult to work, take care of things at home, or get along with others. PHQ-9 Total Score (past 180 days): 07/18/2024 13 04/11/2024 14 03/01/2024 11 02/15/2024 6 02/01/2024 11 THE ACCEPTANCE AND ACTION QUESTIONNAIRE-II (AAQ-II) The patient rated how true each statement is for them as follows: 1. It's OK if I remember something unpleasant: Sometimes 2. My painful experiences and memories make it difficult for me to live a life that I would value: Sometimes 3. I am afraid of my feelings: Seldom true 4. I worry about not being able to control my worries and feelings: Sometimes 5. My painful memories prevent me from having a fulfilling life: Seldom true 6. I am in control of my life: Sometimes 7. Emotions cause problems in my life: Sometimes 8. It seems like most people are handling their lives better than I am: Seldom true 9. Worries get in the way of my success: Frequently true 10. My thoughts and feelings do not get in the way of how I want to live my life: Sometimes Total Score: 42 Scores range from 10 to 70 with higher scores indicating greater psychological flexibility. AAQ-II Total Score (past 180 days): 07/18/2024 42 04/11/2024 41 03/01/2024 47 02/15/2024 50 /es/ Rober Rivera, PhD Clinical Psychologist, [facility] Clinic Signed: 07/19/2024 09:47 ROBER RIVERA [place] [facility] [place] [facility] Jul 18, 2024 03:10 PM TELEHEALTH NOTE: LOCAL TITLE: [place] [employer] PSYCHOLOGY NOTE STANDARD TITLE: TELEHEALTH NOTE DATE OF NOTE: JUL 18, 2024@15:10 ENTRY DATE: JUL 18, 2024@15:10:43 AUTHOR: ROBER RIVERA EXP COSIGNER: URGENCY: STATUS: COMPLETED BHIP Individual Therapy Note (VVC) [place] [facility] (cl[place] to [place] location) [facility]'s location: Provider confirmed that [facility] is currently located at Primary Address listed in [place] [employer] [employer] [facility] consult and verified the contact phone number has provided verbal consent either today or previously when seen via [facility] in mental health. This consent [...] VMR) once all invited/required attendees were present. Axel identified with 2 identifiers: [X] Patient Name [X] Visual recognition Procedure: The was seen for a 50-minute [facility] individual psychotherapy session Outpatient [facility] therapy plan was reviewed on 07/18/24. Agreed to meet for 8 weekly to twice monthly individual therapy appointments utilizing aspects of Acceptance and Committment Therapy. Problem: Difficulty managing distressing thoughts and feelings related to stressors and deaths of loved ones Objectives: Axel will engage in individual, weekly psychotherapy to increase his ability to tolerate distressing emotional experiences and to engage in behaviors that are consistent with his values. Progress: Axel spoke about recent stressors in each domain of his life, including physical pain in his back, stress at work, conflict with his partner, challenges in parenting, illness of his grandfather, financial stressors, and distress about world events. reflected on what feels out of his control, his experiences of anger, and his experience of worry and doubting thoughts. He spoke about his expectations of himself, considering how they impact him, and the idea of granting himself radha. Explored a beach ball metaphor of relating to emotions. Axel spoke about his value of compassion towards himself and giving himself radha to sit with angry feelings (and continue to improve on coping skills so his behaviors match his values, even when angry). Axel committed to extend radha to himself between now and the next session as well as to walk and concentrate on a pebble in his hand when distressed. Assessment: Axel arrived on time and was dressed appropriately with appropriate hygiene. He maintained appropriate eye contact and was alert. Axel spoke clearly and coherently. His thoughts were [...] ideation without lifetime intent, plan, or behavior. Axel was reminded of emergency resources through this [place] and the [facility] Crisis Line number. Thus, current assessment of risk for suicide and homicide is low. DSM 5 Diagnostic Impressions Per Chart: Major Depressive Disorder, mild Plan: 's next visit is scheduled for Wednesday, July 24, 2024 at 3pm via [facility]. He requested to receive [facility] measures via text message. /jonathan/ Rober Rivera, PhD Clinical Psychologist, Mental Health Clinic Signed: 07/18/2024 15:57 ROBER RIVERA [place] [facility]
--- OUTSIDE RECORDS SUMMARY | 2024-08-01 17:35 | XMS_ITS | Continuity of Care Document ---
Author Organization [facility] Address [address] [place] [address]- Care Team Providers Care Community Advocate Name Role Phone Timmy Solis MD Primary Care Physician [place] [facility] [place] 07[place]11[place] - 07/18/24 [facility] [address] [place] [address]- Encounter Diagnosis Well adult exam(Discharge Diagnosis) - 07/11/24 Lumbar radiculopathy(Discharge Diagnosis) - 07/11/24 Knee pain(Discharge Diagnosis) - 07/11/24 Anxiety(Discharge Diagnosis) - 07/11/24 Attending Physician: Timmy Solis MD Encounter Type: Office Visit Allergies, Adverse Reactions, Alerts No Known Allergies Immunizations Given and Recorded Vaccine Date Status Refusal Reason SARS-CoV-2(COVID-19)mRNA-LNP vac([id number]) 05/01/24 Recorded SARS-CoV-2(COVID-19)mRNA-LNP vac([id number]) 03/22/23 Recorded influenza virus vaccine, inactivated 02/16/24 French rded influenza virus vaccine, inactivated 03/22/23 French rded influenza virus vaccine, inactivated 04/12/22 French rded influenza virus vaccine, inactivated 04/02/21 French rded influenza virus vaccine, inactivated 1 03/26/20 Gi layla influenza virus vaccine, inactivated 04/02/19 Give n influenza virus vaccine, inactivated 05/05/18 French rded influenza virus vaccine, inactivated 2 04/05/17 Re corded influenza virus vaccine, inactivated 3 03/16/16 Re corded influenza virus vaccine, inactivated 4 03/08/14 Re corded influenza virus vaccine, inactivated 5 03/05/13 Gi layla [id number] 12y+ bivalent booster vax 04/12/22 Recorded tetanus/diphtheria/pertussis, acel(Tdap) 6 07/06/21 Recorded tetanus/diphtheria/pertussis, acel(Tdap) 7 02/04/12 Given SARS-CoV-2 (COVID-19) mRNA BNT-162b2 vac 06/22/21 Recorded SARS-CoV-2 (COVID-19) mRNA BNT-162b2 vac 06/05/21 Recorded SARS-CoV-2 (COVID-19) mRNA BNT-162b2 vac 09/01/20 Recorded SARS-CoV-2 (COVID-19) mRNA BNT-162b2 vac 08/11/20 Recorded Influenza Virus Vaccine (oldterm) 04/01/21 Recorde d 1Result Comment: [facility]-[id number] 2Location History: [facility] 3Location History: [facility] 4Location History: base 5Result Comment: [02/07/2014] [place]ceived in the [place] Comment: [place] 7Result Comment: [02/07/2014] Received in the Medications gabapentin 300 mg oral capsule 300 mg, 1, capsule, By Mouth, 3 times a day, PRN, # 90 capsule, Refills 5, Tot. Refills 5, Maintenance, Pain , Mild, 10/14/23 5:34:00 AM EDT, Route to Pharmacy Electronically, [facility]/pharmacy #[id number], Partial fill upon patient request if the prescription is for a schedule II opioid drug., 175, cm, 07/06/23 9:26:00 EST, Height Start Date: 10/14/23 Stop Date: 01/06/24 Status: Ordered Quantity: 90.0 Unit: capsule Repeat number: 6 hydrOXYzine hydrochloride 25 mg oral tablet 1 tablet, By Mouth, Daily, PRN NEEDED FOR ANXIETY, # 30 tablet, 6 Refills, Maintenance, 01/12/24 10:14:00 AM EDT, [facility] STORE [id number], 175, cm, 07/06/23 9:26:00 EST, Height Start Date: 01/12/24 Status: Ordered Quantity: 30.0 Unit: tablet Repeat number: 1 Probiotic Formula By Mouth, Daily, 0 Refills, Maintenance, 04/09/20 3:29:00 PM EST Start Date: 04/09/20 Status: Ordered Repeat number: 1 Problem List Condition Confirmation Course Effective Dates Status Health St atus Informant Anxiety Confirmed Active AR - Allergic rhinitis Confirmed Active BRCA positive Confirmed Active Chronic low back pain Confirmed Active JOI (generalized anxiety disorder) Confirmed Active History of shingles Confirmed Active Insomnia Confirmed Active Knee pain Confirmed Active Elevated LFTs Confirmed Active MDD (major depressive disorder) Confirmed Active Obese class I Confirmed Active Panic attacks Confirmed Active Diagnosis Diagnosis Type Effective Dates Health Status Clinical Service Informant Well adult exam Discharge Diagnosis 07/11/24 Lumbar radiculopathy Discharge Diagnosis 07/11/24 Knee pain Discharge Diagnosis 07/11/24 Anxiety Discharge Diagnosis 07/11/24 Vital Signs Most recent to oldest [Reference Range]: 1 Height 175 cm (07/11/24 10:08 AM) Weight 103 kg (07/11/24 10:08 AM) Oxygen Saturation [94-100 %] 97 % (07/11/24 10:08 AM) Pulse Rate [55-90 bpm] 81 bpm (07/11/24 10:08 AM) Body Mass Index [18.5-24.99 kg/m2] 33.63 kg/m2 *>HHI* (07/11/24 10:08 AM) Blood Pressure [90-138/55-84 mm Hg] 119/ 78mm Hg (07/11/24 10:08 AM) Mode of Delivery (Oxygen) Room air (07/11/24 10:08 AM) Blood pressure sites Arm, right (07/11/24 10:08 AM) Weight Obtained Via Standing scale (07/11/24 10:08 AM) Social History Social History Type Response Smoking Status Never smoker entered on: 03/10/16 Sex Sex Representation Male (finding) Note * Ana Muniz: PERFORM Event Display: Patient Education/Instruction Authored Date: [id number] Ambulatory Adult Visit Summary [facility], [place] [id number] Name: TRACY HAYES : 1985?? Visit: 07/11/2024 09:51?? Ambulatory Visit Instructions ?? Your Care Team Primary Care Provider Will LAWLER, Timmy Julian? This Visit Provider Will LAWLER, Timmy Julian Vitals Signs Pulse Rate: 81 bpm Height: 175 cm Systolic Blood Pressure: 119 mm Hg Weight: 103 kg Diastolic Blood Pressure: 78 mm Hg Body Mass Index:??33.63 kg/m2??Critical Oxygen Saturation: 97 % Body surface area: 2.24 What to do next Future Orders CBC w/ Differential - Routine, Once, *Est. 12/03/23, Future Order?? Comprehensive Metabolic Panel - Routine, Once, *Est. 12/03/23, Future Order?? Lipid Panel - Routine, Once, *Est. 12/03/23, Future Order?? Medications The list below reflects the information in our records and provided by you today along with any changes made during this visit. Please continue your medications until treatment is completed or stopped by your provider. If this is different from the information you have or there are other questions,please contact the prescribing provider. What How Much When Instructions Unchanged bifidobacterium-lactobacillus (Probiotic Formula) Oral Daily Unchanged Gabapentin (gabapentin 300 mg oral capsule) 1 capsule Oral 3 times a day as needed for Pain , Mild Unchanged HydrOXYzine (hydrOXYzine hydrochloride 25 mg oral tablet) 1 tab(s) Oral Daily as needed for NEEDED FOR ANXIETY ?? What How Much When Comments Stop Taking Meloxicam (meloxicam 15 mg oral tablet) 1 tab(s) Oral Daily Stop Taking ValACYclovir (valacyclovir 1 gm oral tablet) See instructions TAKE 1 TABLET BY MOUTH TWICE A DAY FOR 10 DAYS ?? Medications and Immunizations Administered Medications Given During Visit No medications given during this visit.?? Allergies (NKA means No Known Allergies) NKA Common Emergency Awareness Tips IS IT A STROKE? Act FAST and Check for these signs: FACE Does the face look uneven? ARM Does one arm drift down? SPEECH Does their speech sound strange? TIME Call at any sign of stroke ?? Heart Attack Signs Chest discomfort: Most heart attacks involve discomfort in the center of the chest and lasts more than a few minutes, or goes away and comes back. It can feel like uncomfortable pressure, squeezing, fullness or pain. Discomfort in upper body: Symptoms can include pain or discomfort in one or both arms, back, neck, jaw or stomach. Shortness of breath: With or without discomfort. Other signs: Breaking out in a cold sweat, nausea, or lightheaded. Remember, MINUTES DO MATTER. If you experience any of these heart attack warning signs, call to get immediate medical attention! ?? Smoking can increase your chances of developing chronic health problems and can cause harmful effects to other family members in your house. If you smoke, you are strongly encouraged to quit. Please call [facility] openPeople Link at [phone] or [phone] ([phone]) or log in to [email or web address] for referrals to smoking cessation programs. ?? The National Suicide Prevention Hotline is available 26/12 if you or someone you know needs to find a reason to keep living. By calling 3-510-941-[employer] (2355) you'll be connected to a skilled, trained counselor at a crisis center in your area. [facility] openPeople Portal You can view and manage your care through the patient portal or by using a health care maddison of your choosing. [employer] is a website that allows you to securely view your medical information including your hospital discharge summary, office visit summaries, medications and follow-up visits. You can also request appointments, renew medications, and request access to your medical information using a health care maddison of your choosing, or just ask a question. You can enroll at [email or web address] or register during your next office visit. [facility], in keeping with [facility] guidance, no longer requires face masks for staff, patientsor visitors in most situations. Similiar to time spent indoors at other locations, there is the chance that you were exposed to repiratory viruses during your time with us (such as flu or COVID-19). If you develop symptoms concerning for a viral respiratory infection, please seek testing (and treatment if indicated) from your medical provider or home test kit. ?? Disclaimer: The information provided is of a general nature and is intended to be used in conjunction with the recommendations and advice of your health care practitioner. Every effort has been made to ensure that the information provided is accurate and complete at the time it is provided to you however, as your needs change, or, as new information becomes available, different or additional instructions may be required. ?? If you have questions, please consult with your primary care provider or pharmacist, as appropriate. This information is not intended to serve as substitution for assessment and evaluation by a qualified health care provider. If you do not have a primary care provider, you may find a [facility] provider by calling [facility] at [phone]. Patient Care team information Care Team Personnel Name: Timmy Solis MD Position: [facility] Physician - Primary Care Member Role: PCP Address: [address] [place] [address] Telecom: Care Team Related Persons Name: ELIAS YOON Insurance Providers Guarantor name: TRACY HAYES Health Plan Information #: 2 Payer: [facility] NON BHP HMO Member Number: [id number] Policy Number: NA Group Number: [id number] Health Plan Information #: 1 Payer: HMO [employer] Member Number: [id number] Policy Number: NA Group Number: [id number]
--- OUTSIDE RECORDS SUMMARY | 2024-08-01 17:35 | XMS_ITS | Encounter Summary ---
Author Name [facility] [place] Address [address] [place] [address] Care Team Providers Care Infection Prevention Specialist Name Role Phone CEDRIC CLARK Primary Care [...] Brooks's Name Patient's Relationship to Policy Brooks [facility] DEPT Dec 04, 2023 [id number] [phone] [phone] FR SARBJIT HAYES PATIENT Selected Encounter This section includes the information on record at [place] for the Encounter. Date/Time Encounter Type Encounter Description Reason Provider Source Jan 11, 2024 02:00 PM PSYTX W PT 60 MINUTES [facility] - IND ICD-10-CM F33.8 Other recurrent depressive disorders KRANTHI RIVERA Encounter Template Text not used by [place] Assessments - Encounter Diagnoses This section includes the primary and secondary diagnoses documented for the Encounter. Date/Time Primary/Secondary Diagnosis Diagnosis Name Provider Source Jan 11, 2024 03:01 PM PRIMARY Other recurrent depressive disorders KRANTHI RIVERA [place] [facility] Plan of Treatment: Future Appointments (+ 6 months) and Future Tests (+/- 45 days) The Plan of Treatment section includes future care activities for the patient [facility] [place] [facility] This section includes future appointments and future orders which are active, pending or scheduled. Future Appointments This section includes appointments that were scheduled to occur 6 months from the date of the Encounter, up to a maximum of 20 appointments. The data comes from all [facility]. Appointment Date/Time Appointment Type Appointme nt Facility Name Jan 18, 2024 02:00 PM AMBULATORY - PSYCHIATRY [place] [facility] [place] [facility] Feb 01, 2024 03:00 PM AMBULATORY - PSYCHIATRY [place] [facility] [place] [facility] Feb 15, 2024 03:00 PM AMBULATORY PSYCHIATRY [place] [facility] [place] [facility] Feb 16, 2024 03:00 PM AMBULATORY - MEDICINE [place] C [facility] [place] [facility] Feb 29, 2024 03:00 PM AMBULATORY PSYCHIATRY [place] [facility] [place] [facility] Mar 12, 2024 01:00 PM AMBULATORY - MEDICINE MA C [facility] [place] [facility] Mar 14, 2024 03:00 PM AMBULATORY - PSYCHIATRY [place] [facility] [place] [facility] Mar 28, 2024 03:00 PM AMBULATORY - PSYCHIATRY [place] [facility] [place] [facility] Apr 18, 2024 03:00 PM AMBULATORY - PSYCHIATRY [place] [facility] [place] [facility] May 01, 2024 03:00 PM AMBULATORY - PSYCHIATRY [place] [facility] [place] [facility] May 08, 2024 10:00 AM AMBULATORY - MEDICINE MA C [facility] [place] [facility] May 16, 2024 03:00 PM AMBULATORY - PSYCHIATRY [place] [facility] [place] [facility] Active, Pending, and Scheduled Orders This section includes a listing of several types of active, pending, and scheduled orders, including clinic medications orders, diagnostic test orders, procedure orders and consult orders; where the start date of the order is 45 days before the date of the Encounter or 45 days after the date of theEncounter. The data comes from all [facility]. Test Date/Time Test Type Test Details Facility Name Feb 16, 2024 12:00 AM Laboratory - Chemi stry Order CBC BLOOD (LAV-BLOOD) [facility] Feb 16, 2024 12:00 AM Laboratory - Chemi stry Order OCCULT BLOOD FIT X1 SCREEN(IN-HOUSE) STOOL FECES [facility] Feb 16, 2024 12:00 AM Laboratory - Chemi stry Order UREA NITROGEN BLOOD (SST-SERUM) [facility] Feb 16, 2024 12:00 AM Laboratory - Chemi stry Order HEPATITIS B SURFACE ANTIBODY (HBsAb)-WH BLOOD (SST-SERUM) SP [facility] Social History: Smoking Status (Most current) and Tobacco Use (All prior to encounter date) This section includes the most current, and the historical, smoking and tobacco- related health factors from the [place] facility where the Encounter took place. Current Smoking Status This section includes the most current smoking, or tobacco-related health factor, from the [place] facility where the Encounter took place. Date/Time Current Smoking Status Comment Facil ity Aug 11, 2023 03:00 PM VA-TOBACCO NEVER USED [facility] Tobacco Use History This section includes a history of the smoking, or tobacco-related health factors, that were collected on or before the date of the Encounter. The data comes from the [place] facility where the Encounter took place. Date/Time Smoking Status/Tobacco Use Comment F acility Aug 12, 2022 03:30 PM [facility]TOBACCO [facility] USED [facility] Aug 12, 2021 03:30 PM [facility]BACCO [facility] Aug 03, 2020 03:00 PM VA-TOBACCO NEVER USED [facility] Encounter Notes: All associated encounter notes This section contains the clinical notes associated to the Encounter. Date/Time Encounter Note(s) Provider Source Jan 11, 2024 02:36 PM MENTAL HEALTH DIAG NOSTIC STUDY NOTE: LOCAL TITLE: MENTAL HEALTH DIAGNOSTIC STUDY STANDARD TITLE: MENTAL HEALTH DIAGNOSTIC STUDY NOTE DATE OF NOTE: JAN 11, 2024@14:36:01 ENTRY DATE: JAN 11, 2024@14:36:01 AUTHOR: ROBER RIVERA EXP COSIGNER: URGENCY: STATUS: COMPLETED Assessments were sent to the via text/email. These assessments were completed by TRACY HAYES on their own device on 01/11/2024 11:07:00 AM. PATIENT HEALTH QUESTIONNAIRE-9 (PHQ-9) The patient reported some symptoms of depression; symptoms are not consistent with a major depressive episode. Patient reported being bothered by the following over the last 2 weeks: 1. Little interest or pleasure: Not at all 2. Feeling down, depressed or hopeless: Several Days 3. Trouble sleeping: Nearly every day 4. Tired, low energy: Several Days 5. Poor appetite, over-eating: Several Days 6. Feelings of failure, guilt: Several Days 7. Trouble concentrating: Not at all 8. Motor retardation, agitation: Not at all 9. Thoughts better off /hurting self: Not at all PHQ-9 total score = 7 1-4 = minimal symptoms 5-9= mild symptoms 10-14= moderate symptoms 15-19= moderately severe symptoms 20-27= severe depressive symptoms The patient stated that the depressive symptoms made it somewhat difficult to work, take care of things at home, or get along with others. PHQ-9 Total Score (past 180 days): 01/11/2024 7 01/04/2024 9 12/21/2023 6 12/01/2023 [...] 3. I am afraid of my feelings: Very seldom true 4. I worry about not being able to control my worries and feelings: Very seldom true 5. My painful memories prevent me from having a fulfilling life: Never true 6. I am in control of my life: Frequently true 7. Emotions cause problems in my life: Very seldom true 8. It seems like most people are handling their lives better than I am: Very seldom true 9. Worries get in the way of my success: Frequently true 10. My thoughts and feelings do not get in the way of how I want to live my life: Frequently true Total Score: 54 Scores range from 10 to 70 with higher scores indicating greater psychological flexibility. AAQ-II Total Score (past 180 days): 01/11/2024 54 12/21/2023 45 12/01/2023 47 11/16/2023 52 10/19/2023 50 09/14/2023 43 /es/ Rober Rivera, PhD Clinical Psychologist, Mental Health Clinic Signed: 01/11/2024 15:01 ROBER RIVERA [place] [facility] [facility] [facility] Jan 11, 2024 02:10 PM MENTAL HEALTH NOTE : LOCAL TITLE: ACT DEPRESSION THERAPY NOTE STANDARD TITLE: MENTAL HEALTH NOTE DATE OF NOTE: JAN 11, 2024@14:10 ENTRY DATE: JAN 11, 2024@14:10:21 AUTHOR: ROBER RIVERA EXP COSIGNER: URGENCY: STATUS: COMPLETED Outpatient Mental Health Clinic Individual Therapy Note (VVC) Acceptance and Commitment Therapy for Depression [employer] (clinic to non-VA location) 's location: Provider confirmed that is currently located at Primary Address listed in [place] [employer] Connect consult and verified the contact phone number Mora has provided verbal consent either today or previously when seen via VVC in mental health. This consent was obtained after a full explanation of the risk and benefits of using telehealth for mental health appointments. Alternatives for obtaining care through an in-person mental health visit and the Mora's right of refusal at any time during this session have been explained. 's location/environment was surveyed by this provider to identify all participants and the Virtual Medical Room was locked (via enabling button option in VMR) once all invited/required attendees were present. Axel identified with 2 identifiers: [X] Patient Name [X] Visual recognition Procedure: The patient was seen for a 55-minute [facility] individual psychotherapy session The Outpatient Individual Psychotherapy Services Agreement was reviewed on 09/14/23. Agreed to meet for 12 weekly to twice monthly individual therapy appointments utilizing Acceptance and Committment Therapy for Depression (ACT-D). Problem: Difficulty managing distressing thoughts and feelings related to stressors and deaths of loved ones Objectives: Axel will engage in individual, weekly psychotherapy to increase his ability to tolerate distressing emotional experiences and to engage in behaviors that are consistent with his values. Progress: Completed ACT-D session 11. See content below. Assessment: Axel arrived on time and was [...] Per Chart: Major Depressive Disorder, mild Plan: Axel's next visit is scheduled for January at 2pm via [facility]. He requested to receive [facility] measures via text message on at 11am. ~~~ ACT for Depression - Action Phase Time in session (in minutes): 55 SESSION NUMBER: 11 SESSION FORMAT Video Telehealth Session SESSION LOCATION Mental Health Clinic DIAGNOSIS: Primary (focus of treatment): Major Depressive Disorder, mild ASSESSMENT Date Instrument Raw Trans Scale 01/04/2024 13:35 PHQ9 9 PHQ9 12/21/2023 14:09 PHQ9 6 PHQ9 12/01/2023 16:06 PHQ9 4 PHQ9 11/16/2023 16:11 PHQ9 4 PHQ9 10/19/2023 16:12 PHQ9 7 PHQ9 09/14/2023 13:50 PHQ9 4 PHQ9 Treatment objectives for this action phase session of Acceptance and Commitment Therapy (ACT) for depression included: values and committed action The following Core Processes were facilitated in this session: Contact with the Present moment and mindfulness exercises employed in this session include: Breathing Exercises Clarifying Values exercises employed in this session include: Other Values Clarification exercise coke vs. 7 up The discussion with the Mora related to Values Clarification included consideration of how to use values to make choices Exercises related to committed action employed in this session include: Other Committed Action Exercise a life selected The discussion with the Mora related to Committed Action included: reflecting on desire for a life selected vs. a life selected for him. Mora considered how his use of pro and con lists fits within this - and ways to use values to weigh the choice. identified the need to address the cons of any choice that is made and to be willing to accept that there are cons. Homework/Practice Assignment: continued mindful awareness use, engagement in value-driven behaviors PLAN Next session planned for agreed upon date/time of: January at 2pm via [facility] /jonathan/ Rober Rivera, PhD Clinical Psychologist, Mental Health Clinic Signed: 01/11/2024 15:01 ROBER RIVERA [place] [facility]
--- OUTSIDE RECORDS SUMMARY | 2024-08-01 17:35 | XMS_ITS | Encounter Summary ---
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 DEPT Dec 04, 2023 [id number] [phone] [id number] [phone] FR SARBJIT HAYES PATIENT Selected Encounter This section includes the information on record at [place] for the Encounter. Date/Time Encounter Type Encounter Description Reason Provider Source Jul 24, 2024 10:30 AM PSYTX W PT 45 MINUTES [facility]ENTAL [facility] CLINIC - IND ICD-10-CM F33.8 Other recurrent depressive disorders KRANTHI RIVERA Rick Encounter Template Text not used by [place] Assessments - Encounter Diagnoses This section includes the primary and secondary diagnoses documented for the Encounter. Date/Time Primary/Secondary Diagnosis Diagnosis Name Provider Source Jul 24, 2024 11:25 AM PRIMARY Other recurrent depressive disorders KRANTHI RIVERA [place] [facility] [facility] Plan of Treatment: Future Appointments (+ 6 months) and Future Tests (+/- 45 days) The Plan of Treatment section includes future care activities for the patient from all [place] [facility]. This section includes future appointments and future orders which are active, pending or scheduled. Future Appointments This section includes appointments that were scheduled to occur 6 months from the date of the Encounter, up to a maximum of 20 appointments. The data comes from all [place] treatment facilities. Appointment Date/Time Appointment Type Appointme nt Facility Name Aug 01, 2024 03:00 PM AMBULATORY - PSYCHIATRY [place] [facility] [facility] Aug 16, 2024 03:00 PM AMBULATORY - MEDICINE [place] [facility] Social History: Smoking Status (Most current) and Tobacco Use (All prior to encounter date) This section includes the most current, and the historical, smoking and tobacco- related health factors from the [place] facility where the Encounter took place. Current Smoking Status This section includes the most current smoking, or tobacco-related health factor, from the [place] facility where the Encounter took place. Date/Time Current Smoking Status Comment Facil ity Aug 11, 2023 03:00 PM [facility] Tobacco Use History This section includes a history of the smoking, or tobacco-related health factors, that were collected on or before the date of the Encounter. The data comes from the [place] facility where the Encounter took place. Date/Time Smoking Status/Tobacco Use Comment F acility Aug 12, 2022 03:30 PM VA-TOBACCO NEVER USED [place] [facility] [facility] Aug 12, 2021 03:30 PM VA-TOBACCO NEVER USED [place] [facility] [facility] Aug 03, 2020 03:00 PM [facility]ACCO [facility] [place] [facility] Encounter Notes: All associated encounter notes This section contains the clinical notes associated to the Encounter. Date/Time Encounter Note(s) Provider Source Jul 24, 2024 10:32 AM TELEHEALTH NOTE: LOCAL TITLE: [place] [facility] PSYCHOLOGY NOTE STANDARD TITLE: TELEHEALTH NOTE DATE OF NOTE: JUL 24, 2024@10:32 ENTRY DATE: JUL 24, 2024@10:32:23 AUTHOR: ROBER RIVERA EXP COSIGNER: URGENCY: STATUS: COMPLETED [facility] Individual Therapy Note (VVC) [place] [facility] (clinic to non-VA location) [place]'s location: Provider confirmed that [place] is currently located at Primary Address listed in [place] [facility] consult and verified the contact phone number [place] has provided verbal consent either today or previously when seen via VV in mental health. This consent was obtained after a full explanation of the risk and benefits of using telehealth for mental health appointments. Alternatives for obtaining care through an in-person mental health visit and the 's right of refusal at any time during this session have been explained. [place]'s location/environment was surveyed by this provider to identify all participants and the Virtual Medical Room was locked (via enabling button option in VMR) once all invited/required attendees were present. [place] identified with 2 identifiers: [X] Patient Name [X] Visual recognition Procedure: The was seen for a 50-minute [facility] individual psychotherapy session Outpatient [facility] therapy plan was reviewed on 07/18/24. Agreed to meet for 8 weekly to twice monthly individual therapy appointments utilizing aspects of Acceptance and Committment Therapy. Problem: Difficulty managing distressing thoughts and feelings related to stressors and deaths of loved ones Objectives: [place] will engage in individual, weekly psychotherapy to increase his ability to tolerate distressing emotional experiences and to engage in behaviors that are consistent with his values. Progress: Thanked Axel for completing self-report measures and discussed how the increase in scores match his recent experiences. He spoke about recent conflict in his relationship with his significant other and ways to problem solve, including using the phrase da se dice? to communicate not upset with one another, giving oneself space, writing to one another, and researching options for couples therapy. spoke about his desire to walk in the future and to discuss process in the relationship, including responses to challenging feelings. Explored together a metaphor of responding to a circuit breaker overload on an electrical panel. considered his ideas about growth and learning as well as his associations with the word failure and accomodations in his work. committed to extend radha to himself by considering how he can mentor himself between now and the next session as well as to walk, concentrate on a pebble in his hand, and use the phrase da se dice? when distressed. Assessment: arrived on time and was dressed appropriately with appropriate hygiene. He maintained appropriate eye contact and was alert. [place] spoke clearly and coherently. His thoughts were linear and related. His affect was congruent to content and appropriate in range. There was no evidence of AH/VH or delusions. There was no evidence of SI or HI. [place] was future oriented, clearly invested in improving the quality of his life. He reported a history of passive, fleeting suicidal ideation without lifetime intent, plan, or behavior. Axel was reminded of emergency resources through this [facility] and the [place] [facility] number. Thus, current assessment of risk for suicide and homicide is low. DSM 5 Diagnostic Impressions Per Chart: Major Depressive Disorder, mild Plan: [place]'s next visit is scheduled for July at 3pm via [facility]. He requested to receive [facility] measures via text message at 3:30pm the day prior to our next appointment. /jonathan/ Rober Rivera, PhD Clinical Psychologist, Mental Health Clinic Signed: 07/24/2024 11:25 [facility]ER [facility]IVERA [place] [facility]
--- OUTSIDE RECORDS SUMMARY | 2024-08-01 17:35 | XMS_ITS | Encounter Summary ---
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 Date/Time Encounter Type Encounter Description Reason Provider Source Sep 14, 2023 03:00 PM PSYTX W PT 45 MINUTES [facility] - IND ICD-10-CM F33.8 Other recurrent depressive disorders KRANTHI RIVERA Encounter Template Text not used by [place] Assessments - Encounter Diagnoses This section includes the primary and secondary diagnoses documented for the Encounter. Date/Time Primary/Secondary Diagnosis Diagnosis Name Provider Source Sep 14, 2023 04:10 PM PRIMARY Other recurrent depressive disorders KRANTHI RIVERA [facility] [place] [facility] Plan of Treatment: Future Appointments (+ 6 months) and Future Tests (+/- 45 days) The Plan of Treatment section includes future care activities for the patient from all [place] [facility] This section includes future appointments and future orders which are active, pending or scheduled. Future Appointments This section includes appointments that were scheduled to occur 6 months from the date of the Encounter, up to a maximum of 20 appointments. The data comes from all [place] treatment facilities. Appointment Date/Time Appointment Type Appointme nt Facility Name Sep 19, 2023 01:00 PM [facility] [place] [facility] October 12, 2023 03:00 PM [facility] [place] [facility] October 19, 2023 03:00 PM [facility] [place] [facility] October 26, 2023 03:00 PM [facility] [place] [facility] Nov 16, 2023 03:00 PM [facility] [place] [facility] Nov 23, 2023 03:00 PM [facility] [place] [facility] Nov 30, 2023 03:00 PM [facility] [place] [facility] Dec 14, 2023 03:00 PM [facility] [place] [facility] Dec 21, 2023 03:00 PM [facility] [place] [facility] Jan 04, 2024 02:00 PM [facility] [place] [facility] Jan 11, 2024 02:00 PM [facility] [place] [facility] Jan 18, 2024 02:00 PM [facility] [place] [facility] Feb 01, 2024 03:00 PM [facility] [place] [facility] Feb 15, 2024 03:00 PM [facility] [place] [facility] Feb 16, 2024 03:00 PM [facility] [place] [facility] Feb 29, 2024 03:00 PM [facility] [place] [facility] Mar 12, 2024 01:00 PM [facility] [place] [facility] [place] [facility] Mar 14, 2024 03:00 PM [place] [facility] [place] [facility] Social History: Smoking Status (Most current) and Tobacco Use (All prior to encounter date) This section includes the most current, and the historical, smoking and tobacco- related health factors from the [place] facility where the Encounter took place. Current Smoking Status This section includes the most current smoking, or tobacco-related health factor, from the [place] facility where the Encounter took place. Date/Time Current Smoking Status Comment Facil ity Aug 11, 2023 03:00 PM VA-TOBACCO NEVER USED [place] [facility] [place] [facility] Tobacco Use History This section includes a history of the smoking, or tobacco-related health factors, that were collected on or before the date of the Encounter. The data comes from the [place] facility where the Encounter took place. Date/Time Smoking Status/Tobacco Use Comment F acility Aug 12, 2022 03:30 PM VA-TOBACCO NEVER USED [facility] [place] [facility] Aug 12, 2021 03:30 PM VA-TOBACCO NEVER USED [facility] [place] [facility] Aug 03, 2020 03:00 PM VA-TOBACCO NEVER USED [place] [facility] [place] [facility] Encounter Notes: All associated encounter notes This section contains the clinical notes associated to the Encounter. Date/Time Encounter Note(s) Provider Source Sep 14, 2023 03:58 PM TELEHEALTH NOTE: LOCAL TITLE: [place] [facility] PSYCHOLOGY NOTE STANDARD TITLE: TELEHEALTH NOTE DATE OF NOTE: SEP 14, 2023@15:58 ENTRY DATE: SEP 14, 2023@15:59:01 AUTHOR: ROBER RIVERA EXP COSIGNER: URGENCY: STATUS: COMPLETED Outpatient Mental Health Clinic Individual Therapy Note (VVC) [place] [facility] ([facility] to [facility] location) 's location: Provider confirmed that is currently located at Primary Address listed in [place] [facility] consult and verified the contact phone number Greenfield has provided verbal consent either today or previously when seen via VVC in mental health. This consent was obtained after a full explanation of the risk and benefits of using telehealth for mental health appointments. Alternatives for obtaining care through an in-person mental health visit and the [place]'s right of refusal at any time during this session have been explained. Axel's location/environment was surveyed by this provider to identify all participants and the Virtual Medical Room was locked (via enabling button option in VMR) once all invited/required attendees were present. Axel identified with 2 identifiers: [X] Patient Name [X] Visual recognition Procedure: The patient was seen for a 50-minute [facility] individual psychotherapy session The Outpatient Individual Psychotherapy Services Agreement was reviewed on 09/14/23. Agreed to meet for 12 weekly to twice monthly individual therapy appointments utilizing Acceptance and Committment Therapy for Depression (ACT- D). Problem: Difficulty managing distressing thoughts and feelings related to stressors and deaths of loved ones Objectives: will engage in individual, weekly psychotherapy to increase his ability to tolerate distressing emotional experiences and to engage in behaviors that are consistent with his values. Progress: Axel spoke about recent experiences travelling in [place] and negotiating challenging interactions with family members. spoke about health concerns on the part of both his parents and how he is taking care of himself this week in anticipation of a surgery for his mother tomorrow. Greenfield spoke about difficulty advocating for himself when he is not included in decisions by his sisters and when social events with family members involve financial components given longstanding patterns and feeling less than. Greenfield agreed to consider further what he needs to ask for or do differently in order for family social interactions to be workable for him. Confirmed plan to begin ACT-D work in next session. Assessment: Axel arrived on time [...] Plan: Axel's next visit is scheduled for Tuesday, September 19, 2023 at 1pm via [facility]. /jonathan/ Rober Rivera, PhD Clinical Psychologist, Mental Health Clinic Signed: 09/14/2023 16:10 ROBER RIVERA [place] [facility] [place] [facility] Sep 14, 2023 03:17 PM MENTAL HEALTH DIAG NOSTIC STUDY NOTE: LOCAL TITLE: MENTAL HEALTH DIAGNOSTIC STUDY STANDARD TITLE: MENTAL HEALTH DIAGNOSTIC STUDY NOTE DATE OF NOTE: SEP 14, 2023@15:17:01 ENTRY DATE: SEP 14, 2023@15:17:01 AUTHOR: ROBER RIVERA EXP COSIGNER: URGENCY: STATUS: COMPLETED Assessments were sent to the [place] via text/email. These assessments were completed by TRACY HAYES on their own device on 09/14/2023 1:50:47 PM. PATIENT HEALTH QUESTIONNAIRE-9 (PHQ-9) The patient reported some symptoms of depression; symptoms are not consistent with a major depressive episode. Patient reported being bothered by the following over the last 2 weeks: 1. Little interest or pleasure: Not at all 2. Feeling down, depressed or hopeless: Not at all 3. Trouble sleeping: Several Days 4. Tired, low energy: Several Days 5. Poor appetite, over-eating: Several Days 6. Feelings of failure, guilt: Several Days 7. Trouble concentrating: Not at all 8. Motor retardation, agitation: Not at all 9. Thoughts better off /hurting self: Not at all PHQ-9 total score = 4 1-4 = minimal symptoms 5-9= mild symptoms 10-14= moderate symptoms 15-19= moderately severe symptoms 20-27= severe depressive symptoms The patient stated that the depressive symptoms made it somewhat difficult to work, take care of things at home, or get along with others. WORKING ALLIANCE INVENTORY-SHORT REVISED (AMBER-SR) The patient reported the following in regard to experiences with therapy or their therapist. 1. As a result of these sessions I am clearer as to how I might be able to change: Very Often 2. What I am doing in therapy gives me new ways of looking at my problem: Very Often 3. I believe my therapist likes me: Very Often 4. My therapist and I collaborate on setting goals for my therapy: Very Often 5. My therapist and I respect each other: Always 6. My therapist and I are working towards mutually agreed upon goals: Very Often 7. I feel that my therapist appreciates me: Very Often 8. My therapist and I agree on what is important for me to work on: Very Often 9. I feel my therapist cares about me even when I do things that he / she does not approve of: Very Often 10. I feel that the things I do in therapy will help me to accomplish the changes that I want: Very Often 11. My therapist and I have established a good understanding of the kind of changes that would be good for me: Very Often 12. I believe the way we are working with my problem is correct: Very Often Goal Score: 16 Task Score: 16 Farias Score: 17 Goal, Task, and Farias scores range from 4-20. Higher scores indicate better working alliance. WORLD HEALTH ORGANIZATION QUALITY OF LIFE-BRIEF (WHOQOL-BREF) In the last four weeks... 1. How would you rate your quality of life: Neither poor nor good 2. How satisfied are you with your health: Dissatisfied 3. To what extent do you feel that physical pain prevents you from doing what you need to do: A little 4. How much do you need any medical treatment to function in your daily life: A little 5. How much do you enjoy life: Very much 6. To what extent do you feel your life to be meaningful: A moderate amount 7. How well are you able to concentrate: A moderate amount 8. How safe do you feel in your daily life: Very much 9. How healthy is your physical environment: A moderate amount 10. Do you have enough energy for everyday life: Moderately 11. Are you able to accept your bodily appearance: A little 12. Have you enough money to meet your needs: Not at all 13. How available to you is the information that you need in your day-to-day life: A little 14. To what extent do you have the opportunity for leisure activities: A little 15. How well are you able to get around: Very good 16. How satisfied are you with your sleep: Dissatisfied 17. How satisfied are you with your ability to perform your daily living activities: Neither satisfied nor dissatisfied 18. How satisfied are you with your capacity for work: Neither satisfied nor dissatisfied 19. How satisfied are you with yourself: Neither satisfied nor dissatisfied 20. How satisfied are you with your personal relationships: Satisfied 21. How satisfied are you with your sex life: Satisfied 22. How satisfied are you with the support you get from your friends: Neither satisfied nor dissatisfied 23. How satisfied are you with the conditions of your living place: Satisfied 24. How satisfied are you with your access to health services: Dissatisfied 25. How satisfied are you with your transport: Satisfied 26. In the last four weeks, how often do you have negative feelings such as blue mood, despair, anxiety, depression: Quite often Domain 1 - Physical Health (7-30): 24 Domain 2 - Psychological (6-30): 18 Domain 3 - Social relationships (3-15): 11 Domain 4 - Environment (8-40): 22 For each domain, higher scores indicate a higher quality of life in that area. THE ACCEPTANCE AND ACTION QUESTIONNAIRE-II (AAQ-II) The patient rated how true each statement is for them as follows: 1. It's OK if I remember something unpleasant: Sometimes 2. My painful experiences and memories make it difficult for me to live a life that I would value: Seldom true 3. I am afraid of my feelings: Very seldom true 4. I worry about not being able to control my worries and feelings: Frequently true 5. My painful memories prevent me from having a fulfilling life: Sometimes 6. I am in control of my life: Frequently true 7. Emotions cause problems in my life: Very seldom true 8. It seems like most people are handling their lives better than I am: Sometimes 9. Worries get in the way of my success: Almost always true 10. My thoughts and feelings do not get in the way of how I want to live my life: Sometimes Total Score: 43 Scores range from 10 to 70 with higher scores indicating greater psychological flexibility. FIVE FACET MINDFULNESS QUESTIONNAIRE (FFMQ) The patient rated each statement below as follows: 1. When I'm walking, I deliberately notice the sensations of my body moving: Sometimes true 2. I'm good at finding words to describe my feelings: Sometimes true 3. I criticize myself for having irrational or inappropriate emotions: Often true 4. I perceive my feelings and emotions without having to react to them: Sometimes true 5. When I do things, my mind wanders off and I'm easily distracted: Sometimes true 6. When I take a shower or bath, I stay alert to the sensations of water on my body: Sometimes true 7. I can easily put my beliefs, opinions, and expectations into words: Sometimes true 8. I don't pay attention to what I'm doing because I'm daydreaming, worrying, or otherwise distracted: Sometimes true 9. I watch my feelings without getting lost in them: Sometimes true 10. I tell myself I shouldn't be feeling the way I'm feeling: Often true 11. I notice how foods and drinks affect my thoughts, bodily sensations, and emotions: Often true 12. It's hard for me to find the words to describe what I'm thinking: Often true 13. I am easily distracted: Sometimes true 14. I believe some of my thoughts are abnormal or bad and I shouldn't think that way: Often true 15. I pay attention to sensations, such as the wind in my hair or sun on my face: Sometimes true 16. I have trouble thinking of the right words to express how I feel about things: Sometimes true 17. I make judgments about whether my thoughts are good or bad: Sometimes true 18. I find it difficult to stay focused on what's happening in the present: Sometimes true 19. When I have distressing thoughts or images, I step back and am aware of the thought or image without getting taken over by it: Rarely true 20. I pay attention to sounds, such as clocks ticking, birds chirping, or cars passing: Sometimes true 21. In difficult situations, I can pause without immediately reacting: Sometimes true 22. When I have a sensation in my body, it's difficult for me to describe it because I can't find the right words: Sometimes true 23. It seems I am running on automatic without much awareness of what I'm doing: Sometimes true 24. When I have distressing thoughts or images, I feel calm soon after: Rarely true 25. I tell myself that I shouldn't be thinking the way I'm thinking: Often true 26. I notice the smells and aromas of things: Sometimes true 27. Even when I'm feeling terribly upset, I can find a way to put it into words: Sometimes true 28. I manning through activities without being really attentive to them: Sometimes true 29. When I have distressing thoughts or images I am able just to notice them without reacting: Rarely true 30. I think some of my emotions are bad or inappropriate and I shouldn't feel them: Sometimes true 31. I notice visual elements in art or nature, such as colors, shapes, textures, or patterns of light and shadow: Sometimes true 32. My natural tendency is to put my experiences into words: Rarely true 33. When I have distressing thoughts or images, I just notice them and let them go: Rarely true 34. I do jobs or tasks automatically without being aware of what I'm doing: Sometimes true 35. When I have distressing thoughts or images, I pet walker myself as good or bad, depending what the thought/image is about: Often true 36. I pay attention to how my emotions affect my thoughts and behavior: Sometimes true 37. I can usually describe how I feel at the moment in considerable detail: Rarely true 38. I find myself doing things without paying attention: Sometimes true 39. I disapprove of myself when I have irrational ideas: Often true Total Score (range: 39-195): 105 Observing (8-40): 25 Describing (8-40): 21 Acting with Awareness (8-40): 24 Nonjudging of inner experience (8-40): 18 Nonreactivity to inner experience (7-35): 17 Higher scores indicate a greater capacity for mindfulness. /jonathan/ Rober Rivera, PhD Clinical Psychologist, Mental Health Clinic Signed: 09/14/2023 15:34 [facility]
--- OUTSIDE RECORDS SUMMARY | 2024-08-01 17:35 | XMS_ITS | Encounter Summary ---
Author Name [facility] [place] Address [address] [place] [address] Care Team Providers Care Manufacturing Operator Name Role Phone CEDRIC CLARK Primary Care [...] Brooks's Name Patient's Relationship to Policy Brooks [facility] SCH L DEPT Dec 04, 2023 [id number] [phone] [id number] [phone] FR SARBJIT HAYES PATIENT Selected Encounter This section includes the information on record at [place] for the Encounter. Date/Time Encounter Type Encounter Description Reason Provider Source Jan 04, 2024 02:00 PM PSYTX W PT 45 MINUTES [facility] - IND ICD-10-CM F33.8 Other recurrent depressive disorders KRANTHI RIVERA Encounter Template Text not used by [place] Assessments - Encounter Diagnoses This section includes the primary and secondary diagnoses documented for the Encounter. Date/Time Primary/Secondary Diagnosis Diagnosis Name Provider Source Jan 04, 2024 03:11 PM PRIMARY Other recurrent depressive disorders KRANTHI RIVERA [place] [facility] [facility] Plan of Treatment: Future Appointments (+ 6 months) and Future Tests (+/- 45 days) The Plan of Treatment section includes future care activities for the patient from [facility] [place] [facility] This section includes future appointments and future orders which are active, pending or scheduled. Future Appointments This section includes appointments that were scheduled to occur 6 months from the date of the Encounter, up to a maximum of 20 appointments. The data comes from all [facility]. Appointment Date/Time Appointment Type Appointme nt Facility Name Jan 11, 2024 02:00 PM AMBULATORY [place]ATRY [place] [facility] [facility] Jan 18, 2024 02:00 PM AM[place]ORY [place] [facility] [facility] Feb 01, 2024 03:00 PM AM[place]UL[place]ORY [place]RY [place] [facility] Feb 15, 2024 03:00 PM AM[place]RY [place] [facility] [facility] Feb 16, 2024 03:00 PM AM[place]ULATORY - [place]ICINE [place] [facility] Feb 29, 2024 03:00 PM AMBUL[place]ORY [place]RY [place] [facility] [facility] Mar 12, 2024 01:00 PM AM[place]ULATORY - [place]ICINE [place] [facility] Mar 14, 2024 03:00 PM AMBULATORY [place] [facility] [place] [facility] Mar 28, 2024 03:00 PM AM[place] [facility] [place] [facility] Apr 18, 2024 03:00 PM AMBULATORY - [place]ATRY [place] [facility] [place] [facility] May 01, 2024 03:00 PM AMBUL[place]ORY [place] [facility] [facility] May 08, 2024 10:00 AM AM[place]ULATORY [place]INE [place] [facility] May 16, 2024 03:00 PM AMBUL[place]ORY [place] [facility] Active, Pending, and Scheduled Orders This section includes a listing of several types of active, pending, and scheduled orders, including clinic medications orders, diagnostic test orders, procedure orders and consult orders; where the start date of the order is 45 days before the date of the Encounter or 45 days after the date of theEncounter. The data comes from all [facility] treatment facilities. Test Date/Time Test Type Test Details Facility Name Feb 16, 2024 12:00 AM Laboratory - Chemi stry Order CBC BLOOD (LAV[facility]BLOOD) [facility] Feb 16, 2024 12:00 AM Laboratory - Chemi stry Order OCCULT BLOOD FIT X1 SCREEN(IN-HOUSE) STOOL FECES SP [facility] Feb 16, 2024 12:00 AM Laboratory - Chemi stry Order UREA NITROGEN BLOOD (SST-SERUM) [facility] Feb 16, 2024 12:00 AM Laboratory - Chemi stry Order HEPATITIS B SURFACE ANTIBODY (HBsAb)-WH BLOOD (SST-SERUM) SP [facility] Social History: Smoking Status (Most current) and Tobacco Use (All prior to encounter date) This section includes the most current, and the historical, smoking and tobacco- related health factors from the [place] facility where the Encounter took place. Current Smoking Status This section includes the most current smoking, or tobacco-related health factor, from the [place] facility where the Encounter took place. Date/Time Current Smoking Status Comment Facil ity Aug 11, 2023 03:00 PM [facility]-TO[facility]ACCO [facility] Tobacco Use History This section includes a history of the smoking, or tobacco-related health factors, that were collected on or before the date of the Encounter. The data comes from the [place] facility where the Encounter took place. Date/Time Smoking Status/Tobacco Use Comment F acility Aug 12, 2022 03:30 PM [facility]CO [facility] Aug 12, 2021 03:30 PM [facility] [place] [facility] Aug 03, 2020 03:00 PM [facility] Encounter Notes: All associated encounter notes This section contains the clinical notes associated to the Encounter. Date/Time Encounter Note(s) Provider Source Jan 04, 2024 02:29 PM MENTAL HEALTH DIAG NOSTIC STUDY NOTE: LOCAL TITLE: MENTAL HEALTH DIAGNOSTIC STUDY STANDARD TITLE: MENTAL HEALTH DIAGNOSTIC STUDY NOTE DATE OF NOTE: JAN 04, 2024@14:29:44 ENTRY DATE: JAN 04, 2024@14:29:44 AUTHOR: ROBER RIVERA EXP COSIGNER: URGENCY: STATUS: COMPLETED Assessments were sent to the Chase via text/email. These assessments were completed by TRACY HAYES on their own device on 01/04/2024 1:35:57 PM. PATIENT HEALTH QUESTIONNAIRE-9 (PHQ-9) The patient reported some symptoms of depression; symptoms are not consistent with a major depressive episode. Patient reported being bothered by the following over the last 2 weeks: 1. Little interest or pleasure: Not at all 2. Feeling down, depressed or hopeless: Several Days 3. Trouble sleeping: More than half the days 4. Tired, low energy: More than half the days 5. Poor appetite, over-eating: More than half the days 6. Feelings of failure, guilt: Several Days 7. Trouble concentrating: Several Days 8. Motor retardation, agitation: Not at all 9. Thoughts better off /hurting self: Not at all PHQ-9 total score = 9 1-4 = minimal symptoms 5-9= mild symptoms 10-14= moderate symptoms 15-19= moderately severe symptoms 20-27= severe depressive symptoms The patient stated that the depressive symptoms made it somewhat difficult to work, take care of things at home, or get along with others. PHQ-9 Total Score (past 180 days): 01/04/2024 9 12/21/2023 6 12/01/2023 4 11/16/2023 4 10/19/2023 7 09/14/2023 4 /jonathan/ Rober Rivera, PhD Clinical Psychologist, Mental Health Clinic Signed: 01/04/2024 15:13 ROBER RIVERA [place] [facility] [facility] Jan 04, 2024 02:27 PM MENTAL HEALTH NOTE : LOCAL TITLE: ACT DEPRESSION THERAPY NOTE STANDARD TITLE: MENTAL HEALTH NOTE DATE OF NOTE: JAN 04, 2024@14:27 ENTRY DATE: JAN 04, 2024@14:28:01 AUTHOR: ROBER RIVERAIGNER: URGENCY: STATUS: COMPLETED Outpatient Mental Health Clinic Individual Therapy Note (VVC) Acceptance and Commitment Therapy for Depression [place] Video Connect (clinic to non-[place] location) Chase's location: Provider confirmed that Chase is currently located at Primary Address listed in [place] Video Connect consult and verified the contact phone number Chase has provided verbal consent either today or previously when seen via VVC in mental health. This consent was obtained after a full explanation of the risk and benefits of using telehealth for mental health appointments. Alternatives for obtaining care through an in-person mental health visit and the 's right of refusal at any time during this session have been explained. Chase's location/environment was surveyed by this provider to identify all participants and the Virtual Medical Room was locked (via enabling button option in VMR) once all invited/required attendees were present. identified with 2 identifiers: [X] Patient Name [X] Visual recognition Procedure: The patient was seen for a 50-minute VVC individual psychotherapy session The Outpatient Individual Psychotherapy Services Agreement was reviewed on 09/14/23. Agreed to meet for 12 weekly to twice monthly individual therapy appointments utilizing Acceptance and Committment Therapy for Depression (ACT-D). Problem: Difficulty managing distressing thoughts and feelings related to stressors and deaths of loved ones Objectives: Chase will engage in individual, weekly psychotherapy to increase his ability to tolerate distressing emotional experiences and to engage in behaviors that are consistent with his values. Progress: Completed ACT-D session 10. See content below. Assessment: arrived on time and was dressed appropriately with appropriate hygiene. He maintained appropriate eye contact and was alert. Chase spoke clearly and coherently. His thoughts were linear and related. His affect was congruent to content and appropriate in range. There was no evidence of AH/VH or delusions. There was no evidence of SI or HI. was future oriented, clearly invested in improving [...] Per Chart: Major Depressive Disorder, mild Plan: Chase's next visit is scheduled for January at 2pm via VVC. He requested to receive [facility] measures via text message on at 11am. ~~~ ACT for Depression - Action Phase Time in session (in minutes): 50 SESSION NUMBER: 10 SESSION FORMAT Video Telehealth Session SESSION LOCATION Mental Health Clinic DIAGNOSIS: Primary (focus of treatment): Major Depressive, mild ASSESSMENT Date Instrument Raw Trans Scale 01/04/2024 13:35 PHQ9 9 PHQ9 12/21/2023 14:09 PHQ9 6 PHQ9 12/01/2023 16:06 PHQ9 4 PHQ9 11/16/2023 16:11 PHQ9 4 PHQ9 10/19/2023 16:12 PHQ9 7 PHQ9 09/14/2023 13:50 PHQ9 4 PHQ9 Treatment objectives for this action phase session of Acceptance and Commitment Therapy (ACT) for depression included: values - part II The following Core Processes were facilitated in this session: Contact with the Present moment and mindfulness exercises employed in this session include: Breathing Exercises The discussion with the related to Contact with the Present Moment included: noticing an increase in difficulty focusing and reflecting on the value of regular use of the mindful awareness muscle. Clarifying Values exercises employed in this session include: Process versus Outcome Exercise The discussion with the related to Values Clarification included exploring how to balance conflicting values and shift expectations of self to be more realistic and compassionate. Homework/Practice Assignment: mindful awareness use regularly, further reflection on values PLAN Next session planned for agreed upon date/time of: January at 2pm via VVC ~~~~ Suicide Screen: C-SSRS Screening [place]-Suicide Severity Rating Scale (C-SSRS Screener) 1. Over the past month, have you wished you were or wished you could go to sleep and not wake up? No 2. Over the past month, have you had any actual thoughts of killing yourself? No 3. Over the past month, have you been thinking about how you might do this? Response not required due to responses to other questions. 4. Over the past month, have you had these thoughts and had some intention of acting on them? Response not required due to responses to other questions. 5. Over the past month, have you started to work out or worked out the details of how to kill yourself? Response not required due to responses to other questions. 6. If yes, at any time in the past month did you intend to carry out this plan? Response not required due to responses to other questions. 7. In your lifetime, have you ever done anything, started to do anything, or prepared to do anything to end your life (for example, collected pills, obtained a gun, gave away valuables, went to the roof but didn't jump)? No 8. If YES, was this within the past 3 months? Response not required due to responses to other questions. Homelessness/Food Insecurity Screen: In the past 2 months, have you been living in stable housing that you own, rent, or stay in as part of a household? Yes - Living in stable housing. Are you worried or concerned that in the next 2 months you may NOT have stable housing that you own, rent, or stay in as part of a household? No - Not worried about housing near future The reports the following: Within the past 12 months, you worried whether your food would run out before you got money to buy more. Never true Within the past 12 months, the food you bought just didn't last and you didn't have money to get more. Never true Sexual Orientation: The patient thinks of their sexual orientation as: Straight or Heterosexual /es/ Rober Rivera, PhD Clinical Psychologist, Mental Health Clinic Signed: 01/04/2024 15:11 ROBER RIVERA [place] [facility] [facility]
--- OUTSIDE RECORDS SUMMARY | 2024-08-01 17:36 | XMS_ITS | Encounter Summary ---
Author Name [facility] [place] Address [address] [place] [address] Care Team Providers Care Director Internal Audit Name Role Phone CEDRIC CLARK Primary Care [...] Relationship to Policy Brooks [facility] DEPT Dec 04, [id number] [phone] [id number] [phone] FR SARBJIT HAYES PATIENT Selected Encounter This section includes the [place] for the Encounter. Date/Time Encounter Type Encounter Description Reason Provider Source October 26, 2023 03:00 PM PSYTX W PT 60 MINUTES MENTAL [facility]ALTH CLINIC - IND ICD-10-CM F33.8 Other recurrent depressive disorders KRANTHI RIVERA Encounter Template Text not used by [place] Assessments - Encounter Diagnoses This section includes the primary and secondary diagnoses documented for the Encounter. Date/Time Primary/Secondary Diagnosis Diagnosis Name Provider Source October 26, 2023 04:00 PM PRIMARY Other recurrent depressive disorders KRANTHI RIVERA [place] [facility] [place] [facility] Plan of Treatment: Future Appointments (+ 6 months) and Future Tests (+/- 45 days) The Plan of Treatment section includes future care activities for the patient [facility] [place] [facility]. This section includes future appointments and future orders which are active, pending or scheduled. Future Appointments This section includes appointments that were scheduled to occur 6 months from the date of the Encounter, up to a maximum of 20 appointments. The data comes from all [place] treatment facilities. Appointment Date/Time Appointment Type Appointme nt Facility Name Nov 16, 2023 03:00 PM AMBULATORY - [place]IATRY [place] [facility] [place] [facility] Nov 23, 2023 03:00 PM AMBULATORY - PS[place]IATRY [place] [facility] [place] [facility] Nov 30, 2023 03:00 PM AMBULATORY - [place]IATRY [place] [facility] [place] [facility] Dec 14, 2023 03:00 PM AMBULATORY - PS[place]IATRY [place] [facility] [place] [facility] Dec 21, 2023 03:00 PM AMBULATORY - PS[place]IATRY [place] [facility] [place] [facility] Jan 04, 2024 02:00 PM AMBULATORY - [place]IATRY [place] [facility] [place] [facility] Jan 11, 2024 02:00 PM AMBULATORY - PS[place]CHIATRY [place] [facility] [place] [facility] Jan 18, 2024 02:00 PM AMBULATORY - PS[place]CHIATRY [place] [facility] [place] [facility] Feb 01, 2024 03:00 PM AMBULATORY - PS[place]CHIATRY [place] [facility] [place] [facility] Feb 15, 2024 03:00 PM AMBULATORY - PS[place]CHIATRY [place] [facility] [place] [facility] Feb 16, 2024 03:00 PM AMBULATORY - MEDICINE [place] [facility] [place] [place] [facility] Feb 29, 2024 03:00 PM AMBULATORY - PSYCHIATRY [place] [facility] [place] [facility] Mar 12, 2024 01:00 PM AMBULATORY - MEDICINE [place] [facility] [place] [place] [facility] Mar 14, 2024 03:00 PM AMBULATORY - PSYCHIATRY [place] [facility] [place] [facility] Mar 28, 2024 03:00 PM AMBULATORY - PS[place]CHIATRY [place] [facility] [place] [facility] Apr 18, 2024 03:00 PM AMBULATORY - PS[place]CHIATRY [place] [facility] [place] [facility] Social History: Smoking Status (Most current) and Tobacco Use (All prior to encounter date) This section includes the most current, and the historical, smoking and tobacco- related health factors from the [place] facility where the Encounter took place. Current Smoking Status This section includes the most current smoking, or tobacco-related health factor, from the [place] facility where the Encounter took place. Date/Time Current Smoking Status Comment [place] Aug 11, 2023 03:00 PM [facility] Tobacco Use History This section includes a history of the smoking, or tobacco-related health factors, that were collected on or before the date of the Encounter. The data comes from the [place] facility where the Encounter took place. Date/Time Smoking Status/Tobacco Use Comment F acility Aug 12, 2022 03:30 PM VA-TOBACCO NEVER USED [place] [facility] [place] [facility] Aug 12, 2021 03:30 PM VA-TOBACCO NEVER USED IN [facility]TR [place] [facility] Aug 03, 2020 03:00 PM VA-TOBACCO NEVER USED IN CNTR [facility] Encounter Notes: All associated encounter notes This section contains the clinical notes associated to the Encounter. Date/Time Encounter Note(s) Provider Source October 26, 2023 03:24 PM MENTAL HEALTH NOTE : LOCAL TITLE: ACT DEPRESSION THERAPY NOTE STANDARD TITLE: MENTAL HEALTH NOTE DATE OF NOTE: OCTOBER 26, 2023@15:24 ENTRY DATE: OCTOBER 26, 2023@15:25 AUTHOR: ROBER RIVERA COSIGNER: URGENCY: STATUS: COMPLETED Outpatient Mental Health Clinic Individual Therapy Note (VVC) Acceptance and Commitment Therapy for Depression [place] (clinic to non-[place] location) 's location: Provider confirmed that [place] is currently located at Primary Address listed in [place] Video Connect consult and verified the contact phone number Scio has provided verbal consent either today or previously when seen via VVC in mental health. This consent was obtained after a full explanation of the risk and benefits of using telehealth for mental health appointments. Alternatives for obtaining care through an in-person mental health visit and the [place]'s right of refusal at any time during this session have been explained. Scio's location/environment was surveyed by this provider to identify all participants and the Virtual Medical Room was locked (via enabling button option in VMR) once all invited/required attendees were present. identified with 2 identifiers: [X] Patient Name [X] Visual recognition Procedure: The patient was seen for a 60-minute [facility] individual psychotherapy session The Outpatient Individual [...] with his values. Progress: Completed ACT-D session 4. See content below. Assessment: Axel arrived on time and was dressed appropriately with appropriate hygiene. He maintained appropriate eye contact and was alert. Scio spoke clearly and coherently. His thoughts were [...] Plan: Axel's next visit is scheduled for October at 1pm via [facility]. ~~~ Acceptance and Commitment Therapy (ACT) for Depression - Beginning Phase Time in session (in minutes): 55 SESSION NUMBER: 4 SESSION FORMAT Video Telehealth Session SESSION LOCATION Mental Health Clinic DIAGNOSIS: Primary (focus of treatment): Major Depressive Disorder, mild Session Content: In this beginning phase session of ACT for Depression, the following therapeutic activities were performed. The following interventions/metaphors were used to assist the Scio in understanding the treatment philosophy and process of ACT for depression: Other metaphor or intervention: mindful breathing practice and reflection on life of best friend who recently ; exploration of control as the problem with several metaphors: don't think about broccoli, don't lie or shark tank dunk The Scio had the following response to this rationale: explored his desire to control uncontrollables PLAN Next session planned for agreed upon date/time of: October at 3pm Ronny /jonathan/ Rober Rivera, PhD Clinical Psychologist, Mental Health Clinic Signed: 10/26/2023 16:00 ROBER RIVERA [facility]
--- OUTSIDE RECORDS SUMMARY | 2024-08-01 17:36 | XMS_ITS | Encounter Summary ---
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 Date/Time Encounter Type Encounter Description Reason Provider Source Feb 16, 2024 03:00 PM OFFICE O/P EST LOW 20 MIN PRIMARY CARE/MEDICINE ICD-10-CM Z15.01 Genetic susceptibility to malignant neoplasm of breast ASH SHEPHERD Rick Encounter Template Text not used by [place] Assessments - Encounter Diagnoses This section includes the primary and secondary diagnoses documented for the Encounter. Date/Time Primary/Secondary Diagnosis Diagnosis Name Provider Source Feb 16, 2024 03:30 PM PRIMARY Genetic susceptibility to malignant neoplasm of breast ASH SHEPHERD [place] [facility] [place] [facility] Feb 16, 2024 03:30 PM SECONDARY Encounter for immunization SHEPHERD,WILL RUBY J [place] [facility] [facility] Feb 16, 2024 03:30 PM SECONDARY Essential (primary) hypertension SHEPHERD,WILL RUBY J [place] [facility] [facility] Feb 16, 2024 03:30 PM SECONDARY Herpesviral infection of urogenital system, unspecified SHEPHERD,WILL RUBY J [place] [facility] [facility] Feb 16, 2024 03:30 PM SECONDARY Hyperlipidemia, unspecified SHEPHERD,WILL RUBY J [place] [facility] [facility] Feb 16, 2024 03:30 PM SECONDARY Pain in right ankle and joints of right foot SHEPHERD,WILL RUBY J [place] [facility] [facility] Plan of Treatment: Future Appointments (+ 6 months) and Future Tests (+/- 45 days) The Plan of Treatment section includes future care activities for the patient from all [place] treatment[facility]. This section includes future appointments and future orders which are active, pending or scheduled. Future Appointments This section includes appointments that were scheduled to occur 6 months from the date of the Encounter, up to a maximum of 20 appointments. The data comes from all [place] treatment facilities. Appointment Date/Time Appointment Type Appointme nt Facility Name Feb 29, 2024 03:00 PM AMBULATORY - PSYCHIATRY [place] [facility] [place] [facility] Mar 12, 2024 01:00 PM AMBULATORY - MEDICINE [place] [facility] Mar 14, 2024 03:00 PM AMBULATORY - PSYCHIATRY [place] [facility] [facility] Mar 28, 2024 03:00 PM AMBULATORY - PSYCHIATRY [place] [facility] [place] [facility] Apr 18, 2024 03:00 PM AMBULATORY - PSYCHIATRY [place] [facility] [place] [facility] May 01, 2024 03:00 PM AMBULATORY - PSYCHIATRY [place] [facility] [place] [facility] May 08, 2024 10:00 AM AMBULATORY - MEDICINE [place] C [place] [facility] May 16, 2024 03:00 PM AMBULATORY - PSYCHIATRY [place] [facility] [place] [facility] Jul 18, 2024 03:00 PM AMBULATORY - PSYCHIATRY [facility] Jul 24, 2024 10:30 AM AMBULATORY PSYCHIATRY [facility] Aug 01, 2024 03:00 PM AMBULATORY PSYCHIATRY [facility] Active, Pending, and Scheduled Orders This section includes a listing of several types of active, pending, and scheduled orders, including clinic medications orders, diagnostic test orders, procedure orders and consult orders; where the start date of the order is 45 days before the date of the Encounter or 45 days after the date of theEncounter. The data comes from all [facility]. Test Date/Time Test Type Test Details Facility Name Feb 16, 2024 12:00 AM Laboratory - Chemi stry Order OCCULT BLOOD FIT X1 SCREEN(IN-HOUSE) STOOL FECES [facility] Feb 16, 2024 12:00 AM Laboratory - Chemi stry Order CBC BLOOD (LAV-BLOOD) [facility] Feb 16, 2024 12:00 AM Laboratory - Chemi stry Order UREA NITROGEN BLOOD (SST-SERUM) [facility] Feb 16, 2024 12:00 AM Laboratory - Chemi stry Order HEPATITIS B SURFACE ANTIBODY (HBsAb)-WH BLOOD (SST-SERUM) [facility] Vital Signs: All taken on the encounter date This section contains inpatient and outpatient Vital Signs collected on the date of the Encounter. Date/Time Temperature Pulse Blood Pressure Respiratory Rate SP02 Pain Height Weight Body Mass Index Source Feb 16, 2024 03:29 PM 128/72 [facility] Feb 16, 2024 02:59 PM 97.3 74 143/82 20 96 0 69 226 33 [facility] Immunizations: All administered on the encounter date This section contains immunizations associated to the Encounter. Immunization Series Date Issued Reaction Comments INFLUENZA, SPLIT VIRUS, TRIVALENT, PF Feb 15 024 Social History: Smoking Status (Most current) and Tobacco Use (All prior to encounter date) This section includes the most current, and the historical, smoking and tobacco- related health factors from the [place] facility where the Encounter took place. Current Smoking Status This section includes the most current smoking, or tobacco-related health factor, from the [place] facility where the Encounter took place. Date/Time Current Smoking Status Comment Tato osullivan Aug 11, 2023 03:00 PM VA-TOBACCO NEVER USED [facility] Tobacco Use History This section includes a history of the smoking, or tobacco-related health factors, that were collected on or before the date of the Encounter. The data comes from the [place] facility where the Encounter took place. Date/Time Smoking Status/Tobacco Use Comment F acility Aug 12, 2022 03:30 PM VA-TOBACCO [facility] USED [facility] Aug 12, 2021 03:30 PM VA-TOBACCO NEVER USED [facility] Aug 03, 2020 03:00 PM VA-TOBACCO NEVER USED [facility] Radiology Reports: +/- 30 days of [...] the Encounter. The data comes from all [place] treatment facilities. Date/Time Radiology Report Provider Source Feb 16, 2024 03:43 PM FOOT 3 OR MORE VIE WS (RIGHT): TRACY HAYES [facility] [id number] -1985 M Exm Date: FEB 16, 2024@15:43 Req Phys: CEDRIC SHEPHERD Loc: CWM/NO/PACT 7 (Req'g Loc) Img Loc: [facility] 1 [facility]: [facility] [place] [address] (Case [id number] COMPLETE) FOOT 3 OR MORE VIEWS (RIGHT) (RAD Detailed) CPT:39848 Proc Modifiers : RIGHT CPT Modifiers : RT RIGHT SIDE Reason for Study: pain Clinical History: Covering resident, fellow, GRINDER OUTSIDE DIAMETER or attending: Joao [place] Pager: teams Backup pager: History: pain Report Status: Verified Date Reported: FEB 16, 2024 Date Verified: FEB 16, 2024 Basket Sorter E-Sig:/ES/SUSHMA POWELL JR Report: Study: Weight-bearing AP, [...] Primary Interpreting Staff: SUSHMA POWELL JR, Radiologist (Basket Sorter) /SUSHMA MAGUIRE JR [facility] Encounter Notes: All associated encounter notes This section contains the clinical notes associated to the Encounter. Date/Time Encounter Note(s) Provider Source Feb 16, 2024 03:21 PM PRIMARY CARE NURSE PRACTITIONER OUTPATIENT NOTE: LOCAL TITLE: NURSE PRACTITIONER OUTPATIENT NOTE STANDARD TITLE: PRIMARY CARE NURSE PRACTITIONER OUTPATIENT NOTE DATE OF NOTE: FEB 16, 2024@15:21 ENTRY DATE: FEB 16, 2024@15:21:43 AUTHOR: CEDRIC SHEPHERD COSIGNER: URGENCY: STATUS: COMPLETED Chief complaint: Patient is a 38 year old [place]. HPI: Pleasant male here to follow up. He tells me his gf and her 2 daughters moved in with him, including 2 cats so he's been busy. He also acknowledges some stress, not eating healthy. He plans to modify diet. He reports persistent right foot pain, will get xray, suggested frozen water bottle stretching, consult to pod for possible orthotics. Allergies: Patient has answered NKA The following VA and Non-VA meds were reconciled with patient. The patient was educated on the use of the medications including indication and side effects. Active and Recently Outpatient Medications (excluding Supplies): Active Outpatient Medications Status 1) FLUTICASONE PROP 50MCG 120D NASAL INHL INSTILL 1 ACTIVE SPRAY INTO EACH NOSTRIL TWICE DAILY FOR NASAL IRRITATION/INFLAMMATION Review of Systems: Constitutional: (-)for Fevers, chills, weakness, nights sweats On examination: 97.3 F [36.3 C] (02/16/2024 14:59)143/82 (02/16/2024 14:59)74 (02/16/2024 14:59) 20 (02/16/2024 14:59)0 (02/16/2024 14:59)BMI: 33.4226 lb [102.51 kg] (02/16/2024:59) [place] is alert and oriented X3 Eyes:No scleral icterus, lids normal, Pupils equal,round and reactive to light HEENT: External without scars, lesions or masses, TM's without erythema or perforations, Oropharynx without erythema or exudates or worrisome lesions Neck: supple without masses, trachea midline, ln not palpable, no thyromegaly Cardiovasc: 2plus carotids without bruits, no JVD Heart Reguler rate and rhythm NL S1S2 no S3 or murmur Respiration: Normal respiratory effort, lungs clear ABD: Benign normal active bowel sounds no HSM no rebound or referred pain EXT: no clubbing, edema, or cyanosis All diagnostics from past month were reviewed with patient. Assessment/plan: Active problems - Computerized Problem List is the source for the followin. BRCA2 gene mutation detected - derm scheduled 2. Genital herpes simplex type 2 - suppresive therapy, valacyclovir 3. Back pain - this goes back to an injury while in the , recent flare, working with a chiropractor 4. HTN - Hypertension ([facility] [id number]) - repeat 128/72 5. Hyperlipidemia ([facility] [id number]) - he notes poor diet and plans to make changes, will check this next visit. Health Care Maintenance: flu vax today Review of medial record = 5mins Time spent with Patient including shared decision making = 20 mins Post visit documentation = 5mins Total time = 30 mins Follow up visit in 6 mos. Medication Reconciliation: Outpatient: Has the patient been taking medications as documented in the EMLR? YES: The patient has been taking medications as documented in the EMLR. Essential Medication List for Review used to complete this medication reconciliation. INCLUDED IN THIS LIST: Alphabetical list of active outpatient prescriptions dispensed from this [place] (local) and dispensed from another [place] or [facility] facility (remote) as well as inpatient [...] whether with a VA or non-VA provider. HTN Assess for Elevated BP>=140/90: Repeat blood pressure: 128/72 The patient's blood pressure is usually adequately controlled. No medication changes are indicated at this time. /jonathan/ Cedric Shepherd DNP, INSURANCE AUDITOR-BC, CNL Primary Care Nurse Practitioner Signed: 02/16/2024 15:30 CEDRIC SHEPHERD [place] [facility] Feb 16, 2024 03:03 PM PREVENTIVE MEDICINE NURSING NOTE: LOCAL TITLE: CLINICAL REMINDERS/NURSING STANDARD TITLE: PREVENTIVE MEDICINE NURSING NOTE DATE OF NOTE: FEB 16, 2024@15:03 ENTRY DATE: FEB 16, 2024@15:03:17 AUTHOR: JEREMY POWER COSIGNER: URGENCY: STATUS: COMPLETED CLINICAL REMINDERS/NURSING Has ADDENDA Depression Screening: Perform PHQ-2 A PHQ-2 screen was performed. The score was 0 which is a negative screen for depression. Over the past two weeks, how often have you been bothered by the following problems? 1. Little interest or pleasure in doing things Not at all 2. 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 The patient/caregiver denied any prior severe reaction to this vaccine or its components or a severe allergic reaction, such as anaphylaxis, to any vaccine or any injectable therapy. The patient/caregiver gave verbal consent to receive the vaccine. /jonathan/ Nay Shah MSN RN CNL Primary Care RN Signed: 02/16/2024 15:30 [facility]
--- OUTSIDE RECORDS SUMMARY | 2024-08-01 17:36 | XMS_ITS ---
Author Name [facility] [place] Address [address] [place] [address] Care Team Providers Care Bulldozer Press Operator Name Role Phone CEDRIC CLARK Primary [...] Brooks's Name Patient's Relationship to Policy Brooks [facility] DEPT Dec 04, 2023 [id number] [phone] [phone] FR SARBJIT HAYES PATIENT Selected Encounter This section includes the information on record at CT for the Encounter. Date/Time Encounter Type Encounter Description Reason Provider Source May 08, 2024 10:00 AM OFFICE O/P NEW LOW 30 MIN PODIATRY ICD-10-CM M79.671 Pain in right foot LIVAN FOSTER Rick Encounter Template Text not used by CT Assessments - Encounter Diagnoses This section includes the primary and secondary diagnoses documented for the Encounter. Date/Time Primary/Secondary Diagnosis Diagnosis Name Provider Source May 08, 2024 04:05 PM PRIMARY Pain in right foot LIVAN FOSTER [facility] May 08, 2024 04:05 PM SECONDARY Strain of muscles and tendons at ank/ft level, r foot, inkim FOSTER,LIVAN Leo [facility] Plan of Treatment: Future Appointments (+ 6 months) and Future Tests (+/- 45 days) The Plan of Treatment section includes future care activities for the patient from all [place] treatmentfacilities. This section includes future appointments and future orders which are active, pending or scheduled. Future Appointments This section includes appointments that were scheduled to occur 6 months from the date of the Encounter, up to a maximum of 20 appointments. The data comes from all [place] treatment facilities. Appointment Date/Time Appointment Type Appointme nt Facility Name May 16, 2024 03:00 PM [facility] Jul 18, 2024 03:00 PM [facility] Jul 24, 2024 10:30 AM [facility]UL[facility] Aug 01, 2024 03:00 PM [facility]ULATORY - [facility] Aug 16, 2024 03:00 PM AMBULATORY - [facility]ICINE [facility] [employer] Vital Signs: All taken on the encounter date This section contains inpatient and outpatient Vital Signs collected on the date of the Encounter. Date/Time Temperature Pulse Blood Pressure Respiratory Rate SP02 Pain Height Weight Body Mass Index Source May 08, 2024 10:18 AM 98.1 78 134/81 18 96 0 [facility] Social History: Smoking Status (Most current) and Tobacco Use (All prior to encounter date) This section includes the most current, and the historical, smoking and tobacco- related health factors from the [place] facility where the Encounter took place. Current Smoking Status This section includes the most current smoking, or tobacco-related health factor, from the [place] facility where the Encounter took place. Date/Time Current Smoking Status Comment Tato osullivan Aug 11, 2023 03:[address]-TOBACCO [facility]ED [facility] Tobacco Use History This section includes a history of the smoking, or tobacco-related health factors, that were collected on or before the date of the Encounter. The data comes from the [place] facility where the Encounter took place. Date/Time Smoking Status/Tobacco Use Comment F acility Aug 12, 2022 03:30 PM VA-TOBACCO NEVER USED [facility] [place] [facility] Aug 12, 2021 03:30 PM VA-TOBACCO NEVER USED [facility] [place] [facility] Aug 03, 2020 03:00 PM VA-TOBACCO NEVER USED [facility] [place] [facility] Encounter Notes: All associated encounter notes This section contains the clinical notes associated to the Encounter. Date/Time Encounter Note(s) Provider Source May 08, 2024 10:22 AM PODIATRY CONSULT: [facility] TITLE: CONSULT REPORT/PODIATRY STANDARD TITLE: PODIATRY CONSULT DATE OF NOTE: MAY 08, 2024@10:22 ENTRY DATE: MAY 08, 2024@10:22:52 AUTHOR: LIVAN FOSTER EXP COSIGNER: URGENCY: STATUS: COMPLETED Podiatry [facility] New Consult Provider: Livan Foster Date: MAY 08, [address] [address] Jun 38 MALE [id number] PATIENT PHONE - Sprooki FROM Aug TO Jan Primary Care: CEDRIC CLARK Consult Concern:Patient referred by CEDRIC CLARK Subjective:heel pain right in am , and during sports, tried ds insert helped some what. 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: [employer] Surgical Hx: No history of surgical procedures fractures sprains or other major injuries of the foot or ankle bilateral Medical problems active: Active Problem BRCA2 gene mutation detected Z15.01 08/22/2023 CEDRIC CLARK Genital herpes simplex type 2 A60.0 08/22/2023 CEDRIC CLARK Alcohol abuse F10.10 12/30/2021 ELVIS MCNALLY Depressive disorder F33.8 12/30/2021 ELVIS MCNALLY COVID-19 U07.1 08/12/2021 CEDRIC CLARK Liver enzymes abnormal R94.5 04/02/2021 CEDRIC CLARK Constipation K59.00 12/08/2020 CEDRIC CLARK Back pain M54.5 12/08/2020 CEDRIC CLARK Pain in left knee M25.562 12/08/2020 CEDRIC CLARK HTN - Hypertension ([facility] [id number]) I 08/03/2020 CEDRIC CLARK Hyperlipidemia ([facility] [id number]) E78.5 08/03/2020 CEDRIC CLARK Active mediciation: Active Outpatient Medications (including Supplies): Active Outpatient Medications Status 1) FLUTICASONE PROP 50MCG 120D NASAL INHL INSTILL 1 ACTIVE SPRAY INTO EACH NOSTRIL TWICE DAILY FOR NASAL IRRITATION/INFLAMMATION 2) TRETINOIN 0.025% TOP GEL APPLY THIN LAYER TOPICALLY ACTIVE AT BEDTIME NEEDED FOR ACNE 3) VALACYCLOVIR HCL 500MG TAB TAKE ONE TABLET BY MOUTH ACTIVE ONCE DAILY FOR INFECTION CAUSED BY A VIRUS Allergies: Data on this list may not be complete. Please check [facility] ALLERGY/ADR -------- No Remote Allergy/ADR Data available for this patient [facility] [employer] [facility] [employer] No Known Allergies Lab data: CBC TREND Collection DT Spec WBC RBC HGB HCT MCV MCH PLT 08/11/2023 15:51 BLOOD 8.56 4.55 14.1 40.7 89.5 31.0 313 12/04/2020 16:05 BLOOD 9.06 4.91 15.2 44.3 90.2 31.0 361 H ----- ----- PT INR TREND No data available ----- Imaging Reports: X-rays demonstrate an accessory os perineum otherwise arch is well-maintained no lytic or blastic lesions no bidirectional spurs of significance identified joints all normal no positional alignment abnormalities overall very normal- appearing foot and bone structure. Please see official report for details from the radiologist. ===== = Include data from 05/09/2023 to 05/08/2024 05/08/2024 10:22 CONFIDENTIAL IMAGING REPORTS SUMMARY pg. 1 TRACY HAYES MAKENZIE [id number] : 1985 II - Imaging Impression (max 1 occurrence) Date Procedure CPT Status Case # 02/16/2024 FOOT 3 OR MORE VIEWS (RIGHT) [id number] Verified 381 No acute bony abnormality, as described above. ===== = REVIEW OF SYSTEMS: Except for above complaint unremarkable CONSTITUTIONAL: No fever/chills, unintended wgt loss. SKIN: No rashes, pruritis, new/changed skin lesions. ENDOCRINE: No excess thirst, heat/cold intolerance ALLERGY/IMMUNE: No recurrent infections. HEMATOL/LYMPH: No hx of abnl bleeding/bruising, no night sweats. EYES: No change in vision, no eye pain. ENMT: no tinnitus and hearing loss, has had audiology exam. No nasal brayan/rhinorrhea, sore throat/gums/mouth, difficulty swallowing. CARDIOVASCULAR: No chest pain, palpitations, no orthopnea/pnd. RESPIRATORY: No dyspnea at rest or with exertion. No cough, wheezing GI: No n/v, abd pain, change in bowel habits, blood in stool, melena. : No dysuria, hematuria, frequency. No difficulty starting the stream, hesitancy, nocturia. No difficulty achieving or maintaining erection. MSC-SKEL: No arthralgias, myalgias. NEURO: No vertigo, mukherjee, numbness/weakness, unstable balance or falls. PSYCHIATRIC: no depressed mood, racing thought, anxiety, or difficulty sleeping Vital signs: Date Vital Measurement Qualifiers 05/08/2024 10:18 Temp F (C) 98.1 (36.7) Pulse 78 Respir 18 BP 134/81 Pain 0 POx (L/Min)(%) 96 At Rest General exam: Pleasant neatly dressed 38-year-old male awake alert oriented x 3 independently ambulatory tandem propulsive gait very pleasant cooperative good hygiene Normal pulses bilateral Normal turgor texture bilateral Muscle bulk and tone normal Strength normal bilateral Sensate to light touch pain temperature No significant deformity Arch overall maintained in stance but slight pronation X-rays do not demonstrate pes planus Plantar fascia tender on medial inferior right Posterior lateral heel minor soreness suggestive of minor bursitis Achilles tendon intact No evidence for plantar fibromatosis Tarsal tunnel percussion negative bilateral Impression: Planter fasciitis mild subacute- right Plan: Power[employer] orthotics size 10.5 fit and dispensed stretching Achilles eccentric concentric contraction discussed and demonstrated Patient should do this daily diclofenac 2 g small amount to posterior and inferior heel up to 4 times daily fu as needed. If not improved in 2 to 3 months call for follow-up Gave information on [employer] to set up account /jonathan/ LIVAN FOSTER DPM PODIATRY ATTENDING Signed: 05/08/2024 16:03 LIVAN FOSTER [facility] [place] [facility]
--- OUTSIDE RECORDS SUMMARY | 2024-08-01 17:36 | XMS_ITS | Encounter Summary ---
Author Name [facility] [place] Address [address] [place] [address] Care Team Providers Care Sporting Goods Sales Manager Name Role Phone CEDRIC CLARK Primary Care [...] Brooks's Name Patient's Relationship to Policy Brooks [facility] ORGANIZ[facility] ION [facility] L DEPT Dec 04, [id number] [phone] [id number] [phone] FR SARBJIT HAYES PATIENT Selected Encounter This section includes the information on record at [place] for the Encounter. Date/Time Encounter Type Encounter Description Reason Provider Source Aug 01, 2024 03:00 PM PSYTX W PT 45 MINUTES [facility] - IND ICD-10-CM F33.8 Other recurrent depressive disorders KRANTHI RIVERA Rick Encounter Template Text not used by [place] Assessments - Encounter Diagnoses This section includes the primary and secondary diagnoses documented for the Encounter. Date/Time Primary/Secondary Diagnosis Diagnosis Name Provider Source Aug 01, 2024 03:59 PM PRIMARY Other recurrent depressive disorders KRANTHI RIVERA [place] [facility] Plan of Treatment: Future Appointments (+ 6 months) and Future Tests (+/- 45 days) The Plan of Treatment section includes future care activities for the patient from all [place] [facility] This section includes future appointments and future orders which are active, pending or scheduled. Future Appointments This section includes appointments that were scheduled to occur 6 months from the date of the Encounter, up to a maximum of 20 appointments. The data comes from all [place] treatment facilities. Appointment Date/Time Appointment Type Appointme nt Facility Name Aug 16, 2024 03:00 PM AMBULATORY - MEDICINE [facility] Social History: Smoking Status (Most current) and Tobacco Use (All prior to encounter date) This section includes the most current, and the historical, smoking and tobacco- related health factors from the [place] facility where the Encounter took place. Current Smoking Status This section includes the most current smoking, or tobacco-related health factor, from the [place] facility where the Encounter took place. Date/Time Current Smoking Status Comment Facil ity Aug 11, 2023 03:00 PM [facility]CO [facility] Tobacco Use History This section includes a history of the smoking, or tobacco-related health factors, that were collected on or before the date of the Encounter. The data comes from the [place] facility where the Encounter took place. Date/Time Smoking Status/Tobacco Use Comment F acility Aug 12, 2022 03:30 PM VA-TOBACCO NEVER USED [facility] Aug 12, 2021 03:30 PM VA-TOBACCO NEVER USED [facility] Aug 03, 2020 03:00 PM [facility]ACCO [facility] Encounter Notes: All associated encounter notes This section contains the clinical notes associated to the Encounter. Date/Time Encounter Note(s) Provider Source Aug 01, 2024 03:23 PM TELEHEALTH NOTE: LOCAL TITLE: [facility] PSYCHOLOGY NOTE STANDARD TITLE: TELEHEALTH NOTE DATE OF NOTE: AUG 01, 2024@15:23 ENTRY DATE: AUG 01, 2024@15:23:21 AUTHOR: ROBER RIVERA EXP COSIGNER: URGENCY: STATUS: COMPLETED BHIP Individual Therapy Note (VVC) [place] [facility] (clinic to non-VA location) [place]'s location: Provider confirmed that Axel is currently located at Primary Address listed in [place] [facility] consult and verified the contact phone number Axel has provided verbal consent either today or [...] Procedure: The was seen for a 50-minute [facility] individual psychotherapy session Problem: Difficulty managing distressing thoughts and feelings related to stressors and deaths of loved ones Objectives: Axel will engage in individual, weekly psychotherapy to increase his ability to tolerate distressing emotional experiences and to engage in behaviors that are consistent with his values. Progress: Thanked Axel for completing self-report measures and discussed his struggles with symptoms of depression and anxiety. Axel spoke about ways he is addressing back pain, discussing his choice to go to the ER today at the suggestion of his PCP and to begin looking at service connection given the original injury occurred during service. Axel spoke about the use of the phrase da se dice? with his partner. He explored what is challenging about accepting current challenges. The tin can monster mindfulness practice and metaphor was explored together. Axel committed to focusing on redirecting his attention after acknowledging cans that will not budge and to working on each can individually. Assessment: Axel arrived on time and was [...] emergency resources through this [facility] and the [employer] Crisis Line number. Thus, current assessment of risk for suicide and homicide is low. DSM 5 Diagnostic Impressions Per Chart: Major Depressive Disorder, mild Plan: Outpatient [facility] therapy plan was reviewed on 07/18/24. Agreed to meet for 8 weekly to twice monthly individual therapy appointments utilizing aspects of Acceptance and Committment Therapy. Next appointment: 's next visit is scheduled for August at 3pm via [facility]. He requested to receive [facility] measures via text message at 3:30pm the day prior to our next appointment. /jonathan/ Rober Rivera, PhD Clinical Psychologist, Mental Health Clinic Signed: 08/01/2024 15:59 ROBER RIVERA [place] [facility] [place] [facility] Aug 01, 2024 08:31 AM MENTAL HEALTH DIAG NOSTIC STUDY NOTE: LOCAL TITLE: MENTAL HEALTH DIAGNOSTIC STUDY STANDARD TITLE: MENTAL HEALTH DIAGNOSTIC STUDY NOTE DATE OF NOTE: AUG 01, 2024@08:31:12 ENTRY DATE: AUG 01, 2024@08:31:12 AUTHOR: ROBER RIVERA EXP COSIGNER: URGENCY: STATUS: COMPLETED Assessments were sent to the [place] via text/email. These assessments were completed by TRACY HAYES on their own device on 07/31/2024 3:46:23 PM. PATIENT HEALTH QUESTIONNAIRE-9 (PHQ-9) The patient reported symptoms consistent with a major depressive episode. Patient reported being bothered by the following over the last 2 weeks: 1. Little interest or pleasure: Several Days 2. Feeling down, depressed or hopeless: More than half the days 3. Trouble sleeping: More than half the days 4. Tired, low energy: More than half the days 5. Poor appetite, over-eating: More than half the days 6. Feelings of failure, guilt: Several Days 7. Trouble concentrating: Several Days 8. Motor retardation, agitation: Not at all 9. Thoughts better off /hurting self: Several Days PHQ-9 total score = 12 1-4 = minimal symptoms 5-9= mild symptoms 10-14= moderate symptoms 15-19= moderately severe symptoms 20-27= severe depressive symptoms The patient stated that the depressive symptoms made it very difficult to work, take care of things at home, or get along with others. PHQ-9 Total Score (past 180 days): 07/31/2024 12 07/18/2024 13 04/11/2024 14 03/01/2024 11 02/15/2024 [...] 7. Emotions cause problems in my life: Frequently true 8. It seems like most people are handling their lives better than I am: Very seldom true 9. Worries get in the way of my success: Frequently true 10. My thoughts and feelings do not get in the way of how I want to live my life: Sometimes Total Score: 44 Scores range from 10 to 70 with higher scores indicating greater psychological flexibility. AAQ-II Total Score (past 180 days): 07/31/2024 44 07/18/2024 42 04/11/2024 41 03/01/2024 47 02/15/2024 50 /es/ Rober Rivera, PhD Clinical Psychologist, Mental Health Clinic Signed: 08/01/2024 15:05 ROBER RIVERA [facility]L [facility]
--- OUTSIDE RECORDS SUMMARY | 2024-08-01 17:36 | XMS_ITS | Encounter Summary ---
Author Name [facility] [place] Organization [place] Address [address] [place] [address] Care Team Providers Care Senior Estimator Name Role Phone CEDRIC CLARK Primary Care [...] Name Patient's Relationship to Policy Brooks [facility] ORGAN[facility] ION [facility] SCH L DEPT Dec 04, 2023 [phone] [id number] [phone] FR SARBJIT HAYES PATIENT Selected Encounter This section includes the information on record at [place] for the Encounter. Date/Time Encounter Type Encounter Description Reason Provider Source Dec 21, 2023 03:00 PM PSYTX W PT 45 MINUTES [facility] - IND ICD-10-CM F33.8 Other recurrent depressive disorders KRANTHI RIVERA Rick Encounter Template Text not used by [place] Assessments - Encounter Diagnoses This section includes the primary and secondary diagnoses documented for the Encounter. Date/Time Primary/Secondary Diagnosis Diagnosis Name Provider Source Dec 21, 2023 03:52 PM PRIMARY Other recurrent depressive disorders KRANTHI RIVERA [place] [facility] Plan of Treatment: Future Appointments (+ 6 months) and Future Tests (+/- 45 days) The Plan of Treatment section includes future care activities for the patient [facility] [place] [facility]. This section includes future appointments and future orders which are active, pending or scheduled. Future Appointments This section includes appointments that were scheduled to occur 6 months from the date of the Encounter, up to a maximum of 20 appointments. The data comes from all [place] treatment facilities. Appointment Date/Time Appointment Type Appointme nt Facility Name Jan 04, 2024 02:00 PM AMBULATORY - PSYCHIATRY [facility] [facility] Jan 11, 2024 02:00 PM AMBULATORY - PSYCHIATRY [facility] [facility] Jan 18, 2024 02:00 PM AMBULATORY - PSYCHIATRY [facility] [facility] Feb 01, 2024 03:00 PM AMBULATORY - PSYCHIATRY [facility] [facility] Feb 15, 2024 03:00 PM AMBULATORY - PSYCHIATRY [facility] [place] [facility] Feb 16, 2024 03:00 PM AMBULATORY - MEDICINE DE [facility] [place] [facility] Feb 29, 2024 03:00 PM AMBULATORY - PSYCHIATRY [facility] [facility] Mar 12, 2024 01:00 PM AMBULATORY - MEDICINE DE [facility] [place] [facility] Mar 14, 2024 03:00 PM AMBULATORY - PSYCHIATRY [facility] [facility] Mar 28, 2024 03:00 PM AMBULATORY - PSYCHIATRY [facility] [facility] Apr 18, 2024 03:00 PM AMBULATORY - PSYCHIATRY [facility] [facility] May 01, 2024 03:00 PM AMBULATORY - PSYCHIATRY [facility] [facility] May 08, 2024 10:00 AM AMBULATORY - MEDICINE [facility] [place] [facility] May 16, 2024 03:00 PM AMBULATORY - PSYCHIATRY [place] [facility] [facility] Social History: Smoking Status (Most current) and Tobacco Use (All prior to encounter date) This section includes the most current, and the historical, smoking and tobacco- related health factors from the [place] facility where the Encounter took place. Current Smoking Status This section includes the most current smoking, or tobacco-related health factor, from the [place] facility where the Encounter took place. Date/Time Current Smoking Status Comment Tato alvarezy Aug 11, 2023 03:00 PM VA-TOBACCO NEVER USED [place] CNTR [place] [facility] Tobacco Use History This section includes a history of the smoking, or tobacco-related health factors, that were collected on or before the date of the Encounter. The data comes from the [place] facility where the Encounter took place. Date/Time Smoking Status/Tobacco Use Comment F acility Aug 12, 2022 03:30 PM VA-TOBACCO NEVER USED [facility] [place] [facility] Aug 12, 2021 03:30 PM VA-TOBACCO NEVER USED [facility] [facility] Aug 03, 2020 03:00 PM VA-TOBACCO NEVER USED [place] [facility] [place] [facility] Encounter Notes: All associated encounter notes This section contains the clinical notes associated to the Encounter. Date/Time Encounter Note(s) Provider Source Dec 21, 2023 03:25 PM MENTAL HEALTH NOTE : LOCAL TITLE: ACT DEPRESSION THERAPY NOTE STANDARD TITLE: MENTAL HEALTH NOTE DATE OF NOTE: DEC 21, 2023@15:25 ENTRY DATE: DEC 21, 2023@15:25:18 AUTHOR: ROBER RIVERA EXP COSIGNER: URGENCY: STATUS: COMPLETED Outpatient Mental Health Clinic Individual Therapy Note (VVC) Acceptance and Commitment Therapy for Depression [place] [employer] [facility] (clinic to non-VA location) 's location: Provider confirmed that is currently located at Primary Address listed in [place] Video Connect consult and verified the contact phone number has provided verbal consent either today or previously when seen via VVC in mental health. This consent was obtained after a full explanation of the risk and benefits of using telehealth for mental health appointments. Alternatives for obtaining care through an in-person mental health visit and the [place]'s right of refusal at any time during this session have been explained. 's location/environment was surveyed by this provider to identify all participants and the Virtual Medical Room was locked (via enabling button option in VMR) once all invited/required attendees were present. [place] identified with 2 identifiers: [X] Patient Name [...] stressors and deaths of loved ones Objectives: [place] will engage in individual, weekly psychotherapy to increase his ability to tolerate distressing emotional experiences and to engage in behaviors that are consistent with his values. Progress: Completed ACT-D session 9. See content below. Assessment: [place] arrived on time and was dressed appropriately [...] ideation without lifetime intent, plan, or behavior. [place] was reminded of emergency resources through this VA and the [employer] Crisis Line number. Thus, current assessment of risk for suicide and homicide is low. DSM 5 Diagnostic Impressions Per Chart: Major Depressive Disorder, mild Plan: 's next visit is scheduled for January at 2pm via [facility]. ~~~ ACT for Depression - Action Phase Time in session (in minutes): 50 SESSION NUMBER: 9 SESSION FORMAT Video Telehealth Session SESSION LOCATION Mental Health Clinic DIAGNOSIS: Primary (focus of treatment): Major Depressive Disorder, mild ASSESSMENT Date Instrument Raw Trans Scale 12/21/2023 14:09 PHQ9 6 PHQ9 12/01/2023 16:06 PHQ9 4 PHQ9 11/16/2023 16:11 PHQ9 4 PHQ9 10/19/2023 16:12 PHQ9 7 PHQ9 09/14/2023 13:50 PHQ9 4 PHQ9 Treatment objectives for this action phase session of Acceptance and Commitment Therapy (ACT) for depression included: values part 1 The following Core Processes were facilitated in this session: Contact with the Present moment and mindfulness exercises employed in this session include: Breathing Exercises Clarifying Values exercises employed in this session include: Two Headstones Exercise The discussion with the related to Values Clarification included Reflection on how values shaped what he would like to see written. Exploration of the choices that can be made in terms of how he lives his life to influence what is written. Homework/Practice Assignment: engage in mindful awareness, consider further what he wants his life to stand for, be intentional about responses to bully thoughts ADDITIONAL SESSION INFORMATION: [place] requested to discuss further how he wants to relate to self critical bully thoughts about not doing enough during summer days in our next session. 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 PLAN Next session planned for agreed upon date/time of: Thursday, January 04, 2024 at 2pm via C /jonathan/ Rober Rivera, PhD Clinical Psychologist, Mental Health Clinic Signed: 12/21/2023 15:52 ROBER RIVERA [place] [facility] [place] [facility] Dec 21, 2023 03:04 PM MENTAL HEALTH DIAG NOSTIC STUDY NOTE: LOCAL TITLE: MENTAL HEALTH DIAGNOSTIC STUDY STANDARD TITLE: MENTAL HEALTH DIAGNOSTIC STUDY NOTE DATE OF NOTE: DEC 21, 2023@15:04:41 ENTRY DATE: DEC 21, 2023@15:04:42 AUTHOR: ROBER RIVERA EXP COSIGNER: URGENCY: STATUS: COMPLETED Assessments were sent to the via text/email. These assessments were completed by TRACY HAYES on their own device on 12/21/2023 2:09:33 PM. PATIENT HEALTH QUESTIONNAIRE-9 (PHQ-9) The patient [...] others. PHQ-9 Total Score (past 180 days): 12/21/2023 6 12/01/2023 4 11/16/2023 4 10/19/2023 [...] 3. I am afraid of my feelings: Sometimes 4. I worry about not being able to control my worries and feelings: Frequently true 5. My painful memories prevent me from having a fulfilling life: Very seldom true 6. I am in control of my life: Frequently true 7. Emotions cause problems in my life: Seldom true 8. It seems like most people are handling their lives better than I am: Sometimes 9. Worries get in the way of my success: Frequently true 10. My thoughts and feelings do not get in the way of how I want to live my life: Frequently true Total Score: 45 Scores range from 10 to 70 with higher scores indicating greater psychological flexibility. AAQ-II Total Score (past 180 days): 12/21/2023 45 12/01/2023 47 11/16/2023 52 10/19/2023 50 09/14/2023 43 /es/ Rober iRvera, PhD Clinical Psychologist, Mental Health Clinic Signed: 12/21/2023 15:53 ROBER RIVERA [facility]L [facility]
--- OUTSIDE RECORDS SUMMARY | 2024-08-01 17:36 | XMS_ITS | Encounter Summary ---
Author Name [facility] [place] Address [address] [place] [address] Care Team Providers Care History Instructor Name Role Phone CEDRIC CLARK Primary Care [...] Brooks's Name Patient's Relationship to Policy Brooks [facility] ORGANIZAT ION [facility] DEPT Dec 04, 2023 [id number] [phone] [id number] [phone] FR SARBJIT HAYES PATIENT Selected Encounter This section includes the information on record at [place] for the Encounter. Date/Time Encounter Type Encounter Description Reason Provider Source Mar 28, 2024 03:00 PM PSYTX W PT 45 MINUTES [facility] - IND ICD-10-CM F33.8 Other recurrent depressive disorders KRANTHI RIVERA Encounter Template Text not used by [place] Assessments - Encounter Diagnoses This section includes the primary and secondary diagnoses documented for the Encounter. Date/Time Primary/Secondary Diagnosis Diagnosis Name Provider Source Mar 28, 2024 04:11 PM PRIMARY Other recurrent depressive disorders KRANTHI RIVERA [facility] Plan of Treatment: Future Appointments (+ 6 months) and Future Tests (+/- 45 days) The Plan of Treatment section includes future care activities for the patient from all [place] [facility]. This section includes future appointments and future orders which are active, pending or scheduled. Future Appointments This section includes appointments that were scheduled to occur 6 months from the date of the Encounter, up to a maximum of 20 appointments. The data comes from all [facility]. Appointment Date/Time Appointment Type Appointme nt Facility Name Apr 18, 2024 03:00 PM AMBULATORY - PS[facility]CHIATRY [facility] May 01, 2024 03:00 PM AMBULATORY PSYCHIATRY [place] [facility] May 08, 2024 10:00 AM AM[facility]ULATORY MEDICINE [facility] May 16, 2024 03:00 PM AMBULATORY PSYCHIATRY [facility] Jul 18, 2024 03:00 PM [facility] [place] [facility] Jul 24, 2024 10:30 AM [facility] [place] [facility] Aug 01, 2024 03:00 PM [facility] [place] [facility] Aug 16, 2024 03:00 PM AMBULATORY MEDICINE [facility] Active, Pending, and Scheduled Orders This section includes a listing of several types of active, pending, and scheduled orders, including clinic medications orders, diagnostic test orders, procedure orders and consult orders; where the start date of the order is 45 days before the date of the Encounter or 45 days after the date of theEncounter. The data comes from all [facility]. Test Date/Time Test Type Test Details Facility Name Feb 16, 2024 12:00 AM Laboratory - Chemi stry Order CBC BLOOD ([facility] Feb 16, 2024 12:00 AM Laboratory - Chemi stry Order OCCULT BLOOD FIT X1 SCREEN(IN-HOUSE) STOOL FECES [facility] Feb 16, 2024 12:00 AM Laboratory - Chemi stry Order HEPATITIS B SURFACE ANTIBODY (HBsAb)-WH BLOOD (SST-SERUM) SP [place] [facility] [place] [facility] Feb 16, 2024 12:00 AM Laboratory - Chemi stry Order UREA NITROGEN BLOOD (SST-SERUM) SP [place] CNTRL [place] [facility] Social History: Smoking Status (Most current) and Tobacco Use (All prior to encounter date) This section includes the most current, and the historical, smoking and tobacco- related health factors from the [place] facility where the Encounter took place. Current Smoking Status This section includes the most current smoking, or tobacco-related health factor, from the [place] facility where the Encounter took place. Date/Time Current Smoking Status Comment Facil ity Aug 11, 2023 03:00 PM VA-TOBACCO NEVER USED [place] CNTRL [place] [facility] Tobacco Use History This section includes a history of the smoking, or tobacco-related health factors, that were collected on or before the date of the Encounter. The data comes from the NE facility where the Encounter took place. Date/Time Smoking Status/Tobacco Use Comment F acility Aug 12, 2022 03:30 PM VA-TOBACCO NEVER USED [place] CNTRL [place] [facility] Aug 12, 2021 03:30 PM VA-TOBACCO NEVER USED [place] CNTRL [place] [facility] Aug 03, 2020 03:00 PM VA-TOBACCO NEVER USED [place] CNTRL [place] [facility] Encounter Notes: All associated encounter notes This section contains the clinical notes associated to the Encounter. Date/Time Encounter Note(s) Provider Source Mar 28, 2024 03:46 PM TELEHEALTH NOTE: LOCAL TITLE: NE VIDEO CONNECT PSYCHOLOGY NOTE STANDARD TITLE: TELEHEALTH NOTE DATE OF NOTE: MAR 28, 2024@15:46 ENTRY DATE: MAR 28, 2024@15:46:11 AUTHOR: ROBER RIVERA EXP COSIGNER: URGENCY: STATUS: COMPLETED BHIP Individual Therapy Note (VVC) [place] Video Connect (clinic to non-VA location) 's location: Provider confirmed that [place] is currently located at Primary Address listed in [place] [employer] Connect consult and verified the contact phone number has provided verbal consent either today or previously when seen via VVC in mental health. This consent was obtained after a full explanation of the risk and benefits of using telehealth for mental health appointments. Alternatives for obtaining care through an in-person mental health visit and the [place]'s right of refusal at any time during this session have been explained. Axel's location/environment was surveyed by this provider to identify all participants and the Virtual Medical Room was locked (via enabling button option in VMR) once all invited/required attendees were present. [place] identified with 2 identifiers: [X] Patient Name [X] Visual recognition Procedure: The was seen for a 50-minute [facility] individual psychotherapy session The Outpatient Individual Psychotherapy Services Agreement was reviewed on 02/15/24. Agreed to meet for 8 weekly to twice monthly individual therapy appointments utilizing aspects of Acceptance and Committment Therapy. Problem: Difficulty managing distressing thoughts and feelings related to stressors and deaths of loved ones Objectives: [place] will engage in individual, weekly psychotherapy to increase his ability to tolerate distressing emotional experiences and to engage in behaviors that are consistent with his values. Progress: Axel discussed his experiences deciding not to go to an upcoming high school reunion and engaging in a challenging discussion with his partner. considered urges to avoid conflicts and spoke about ways in which he listened to himself, advocated for his needs, and choose to approach. spoke about the benefits of doing so. He identified helpful thoughts for moments when his mind doubts the decision not to go to the high school reunion. Axel identified a hope to talk in next session about how to support his girlfriend given her past trauma experiences and their desire to have a child. Axel committed to reflect upon his ideas in advance of that conversation. Assessment: Axel arrived on time and was [...] Plan: Axel's next visit is scheduled for April at 3pm via VVC. He requested to receive [facility] measures via text message. /jonathan/ [place] Rivera, PhD Clinical Psychologist, Mental Health Clinic Signed: 03/28/2024 16:11 ROBER RIVERA [place] [facility]
--- OUTSIDE RECORDS SUMMARY | 2024-08-01 17:36 | XMS_ITS | Encounter Summary ---
Author Name [facility] [place] Organization [place] Address [address] [place] [address] Care Team Providers Care Sealer Dry Cell Name Role Phone CEDRIC CLARK Primary Care [...] Brooks's Name Patient's Relationship to Policy Brooks [facility] ORGANIZAT ION [facility] DEPT Dec 04, 2023 [id number] [phone] [phone] FR SARBJIT HAYES PATIENT Selected Encounter This section includes the information on record at [place] for the Encounter. Date/Time Encounter Type Encounter Description Reason Provider Source Mar 14, 2024 03:00 PM PSYTX W PT 45 MINUTES [facility] - IND ICD-10-CM F33.8 Other recurrent depressive disorders KRANTHI RIVERA Encounter Template Text not used by [place] Assessments - Encounter Diagnoses This section includes the primary and secondary diagnoses documented for the Encounter. Date/Time Primary/Secondary Diagnosis Diagnosis Name Provider Source Mar 14, 2024 04:00 PM PRIMARY Other recurrent depressive disorders KRANTHI RIVERA [facility] W[facility] Plan of Treatment: Future Appointments (+ 6 months) and Future Tests (+/- 45 days) The Plan of Treatment section includes future care activities for the patient from all [facility]. This section includes future appointments and future orders which are active, pending or scheduled. Future Appointments This section includes appointments that were scheduled to occur 6 months from the date of the Encounter, up to a maximum of 20 appointments. The data comes from all [facility]. Appointment Date/Time Appointment Type Appointme nt Facility Name Mar 28, 2024 03:00 PM AMBULATORY - PSYCHIATRY [place]TRL [place] [facility] Apr 18, 2024 03:00 PM AMBULATORY PSYCHIATRY [place] CNTRL [place] [facility] May 01, 2024 03:00 PM AMBULATORY PSYCHIATRY [place] CNTRL [place] [facility] May 08, 2024 10:00 AM AMBULATORY - MEDICINE [place] C NTRL [place] [facility] May 16, 2024 03:00 PM AMBULATORY PSYCHIATRY [place] CNTRL [place] [facility] Jul 18, 2024 03:00 PM AMBULATORY PSYCHIATRY [place] CNTRL [place] [facility] Jul 24, 2024 10:30 AM AMBULATORY - PSYCHIATRY [place] CNTRL [place] [facility] Aug 01, 2024 03:00 PM AMBULATORY PSYCHIATRY ID CNTRL [place] [facility] Aug 16, 2024 03:00 PM AMBULATORY - MEDICINE [place] C NTRL [place] [facility] Active, Pending, and Scheduled Orders [...] OCCULT BLOOD FIT X1 SCREEN(IN-HOUSE) STOOL FECES [facility] Feb 16, 2024 12:00 AM Laboratory - Chemi stry Order CBC BLOOD (LAV-BLOOD) [facility] Feb 16, 2024 12:00 AM Laboratory - Chemi stry Order UREA NITROGEN BLOOD (SST-SERUM) [facility] Feb 16, 2024 12:00 AM Laboratory - Chemi stry Order HEPATITIS B SURFACE ANTIBODY (HBsAb)-WH BLOOD (SST-SERUM) SP [facility] Social History: Smoking Status (Most current) and Tobacco Use (All prior to encounter date) This section includes the most current, and the historical, smoking and tobacco- related health factors from the ID facility where the Encounter took place. Current Smoking Status This section includes the most current smoking, or tobacco-related health factor, from the ID facility where the Encounter took place. Date/Time Current Smoking Status Comment Facil ity Aug 11, 2023 03:00 PM VA-TOBACCO [facility] Tobacco Use History This section includes a history of the smoking, or tobacco-related health factors, that were collected on or before the date of the Encounter. The data comes from the ID facility where the Encounter took place. Date/Time Smoking Status/Tobacco Use Comment F acility Aug 12, 2022 03:30 PM VA-TOBACCO NEVER USED [facility] Aug 12, 2021 03:30 PM [facility]ACCO [facility] Aug 03, 2020 03:00 PM VA-TOBACCO [facility]ED [facility] Radiology Reports: +/- 30 days of [...] the Encounter. The data comes from all ID treatment facilities. 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 Date/Time Encounter Note(s) Provider Source Mar 14, 2024 03:16 PM TELEHEALTH NOTE: LOCAL TITLE: ID [employer] CONNECT PSYCHOLOGY NOTE STANDARD TITLE: TELEHEALTH NOTE DATE OF NOTE: MAR 14, 2024@15:16 ENTRY DATE: MAR 14, 2024@15:16:42 AUTHOR: ROBER RIVERA COSIGNER: URGENCY: STATUS: COMPLETED BHIP Individual Therapy Note (VVC) ID SCL Connect (clinic to non-VA location) 's location: Provider confirmed that is currently located at Primary Address listed in ID SCL Connect consult and verified the contact phone [...] VMR) once all invited/required attendees were present. [place] identified with 2 identifiers: [X] Patient Name [X] Visual recognition Procedure: The [place] was seen for a 50-minute [facility] individual psychotherapy session The Outpatient [...] with his values. Progress: Axel discussed his experience advocating for himself following the last session and reflected on how this was helpful. He spoke about recent exhaustion and worry thoughts related to his work schedule. He considered how he wants to respond when doubts about this career choice arise and when he feels uncomfortable when recognized or during fire alarms. considered ways to use acceptance, intentionally pausing and shifting away from thoughts until a more effective time, and seeing things from a bigger picture perspective. He explored ways to recognize when to give himself radha vs. to push himself to follow through with plans. Axel committed to utilize these strategies between now and next session. Assessment: Axel arrived on time [...] was reminded of emergency resources through this ID and the [place] Crisis Line number. Thus, current assessment of risk for suicide and homicide is low. DSM 5 Diagnostic Impressions Per Chart: Major Depressive Disorder, mild Plan: [place]'s next visit is scheduled for March at 3pm via VVC. He requested to receive [facility] measures via text message on at 11am prior to next appointment. /jonathan/ [place] Rivera, PhD Clinical Psychologist, Mental Health Clinic Signed: 03/14/2024 16:00 ROBER RIVERA ID CNTRL WSTRN [facility]
--- OUTSIDE RECORDS SUMMARY | 2024-08-01 17:36 | XMS_ITS | Encounter Summary ---
Author Name [facility] [place] Organization [place] Address [address] [place] [address] Care Team Providers Care Core Driller Name Role Phone CEDRIC CLARK Primary Care [...] Brooks's Name Patient's Relationship to Policy Brooks [facility] ORGANIZAT ION [facility] DEPT Dec 04, 2023 [id number] [phone] [phone] FR SARBJIT HAYES PATIENT Selected Encounter This section includes the information on record at [place] for the Encounter. Date/Time Encounter Type Encounter Description Reason Provider Source May 16, 2024 03:00 PM PSYTX W PT 45 MINUTES [facility] - IND ICD-10-CM F33.8 Other recurrent depressive disorders KRANTHI RIVERA Encounter Template Text not used by [place] Assessments - Encounter Diagnoses This section includes the primary and secondary diagnoses documented for the Encounter. Date/Time Primary/Secondary Diagnosis Diagnosis Name Provider Source May 16, 2024 03:49 PM PRIMARY Other recurrent depressive disorders KRANTHI RIVERA [place] CNT WSTRN [facility] Plan of Treatment: Future Appointments (+ 6 months) and Future Tests (+/- 45 days) The Plan of Treatment section includes future care activities for the patient from all [place] [facility]. This section includes future appointments and future orders which are active, pending or scheduled. Future Appointments This section includes appointments that were scheduled to occur 6 months from the date of the Encounter, up to a maximum of 20 appointments. The data comes from all [place] treatment facilities. Appointment Date/Time Appointment Type Appointme nt Facility Name Jul 18, 2024 03:00 PM AMBULATORY - PSYCHIATRY [place]TRL [place] [facility] Jul 24, 2024 10:30 AM AMBULATORY - PSYCHIATRY [place] CNTRL [place] [facility] Aug 01, 2024 03:00 PM AMBULATORY - PSYCHIATRY [place] CNTRL [place] [facility] Aug 16, 2024 03:00 PM AMBULATORY - MEDICINE [place] [facility] Social History: Smoking Status (Most current) and Tobacco Use (All prior to encounter date) This section includes the most current, and the historical, smoking and tobacco- related health factors from the [place] facility where the Encounter took place. Current Smoking Status This section includes the most current smoking, or tobacco-related health factor, from the [place] facility where the Encounter took place. Date/Time Current Smoking Status Comment Tato ity Aug 11, 2023 03:00 PM VA-TOBACCO [facility] USED [facility] Tobacco Use History This section includes a history of the smoking, or tobacco-related health factors, that were collected on or before the date of the Encounter. The data comes from the [place] facility where the Encounter took place. Date/Time Smoking Status/Tobacco Use Comment F acility Aug 12, 2022 03:30 PM VA-TOBACCO NEVER USED [place] CNTRL [place] [facility] Aug 12, 2021 03:30 PM VA-TOBACCO NEVER USED [place] CNTRL [place] [facility] Aug 03, 2020 03:00 PM VA-TOBACCO NEVER USED [facility] [place] [place] [facility] Encounter Notes: All associated encounter notes This section contains the clinical notes associated to the Encounter. Date/Time Encounter Note(s) Provider Source May 16, 2024 03:22 PM TELEHEALTH NOTE: LOCAL TITLE: DC VIDEO CONNECT PSYCHOLOGY NOTE STANDARD TITLE: TELEHEALTH NOTE DATE OF NOTE: MAY 16, 2024@15:22 ENTRY DATE: MAY 16, 2024@15:22:58 AUTHOR: ROBER RIVERA COSIGNER: URGENCY: STATUS: COMPLETED [facility] Individual Therapy Note (VVC) [place] Video Connect (clinic to non-VA location) 's location: Provider confirmed that [place] is currently located at Primary Address listed in [place] Video Connect consult and verified the contact phone number [place] has provided verbal consent either today or previously when seen via VV in mental health. This consent was obtained after a full explanation of the risk and benefits of using telehealth for mental health appointments. Alternatives for obtaining care through an in-person mental health visit and the [place]'s right of refusal at any time during this session have been explained. 's location/environment was surveyed by this provider to identify all participants and the Virtual Medical Room was locked (via enabling button option in VMR) once all invited/required attendees were present. [place] identified with 2 identifiers: [X] Patient Name [X] Visual recognition Procedure: The was seen for a 50-minute [facility] individual psychotherapy session The Outpatient Individual Psychotherapy Services Agreement was reviewed on 02/15/24. Agreed to meet for 8 weekly to twice monthly individual therapy appointments utilizing aspects of Acceptance and Committment Therapy. Problem: Difficulty managing distressing thoughts and feelings related to stressors and deaths of loved ones Objectives: [place] will engage in individual, weekly psychotherapy to increase his ability to tolerate distressing emotional experiences and to engage in behaviors that are consistent with his values. Progress: [place] engaged in a mindful awareness practice incorporating mindful breathing and thought watching, imagining himself swiping the screen to shift attention away from each thought and returning to the breath. He spoke about his response to discouraging feedback given to a group at work, considering what he wants to take from it and how he wants to choose to let go of what is not serving him. He considered how this is a struggle and also explored a period of difficulty sleeping, including strategies he is finding helpful. [place] spoke about his value of compassion towards himself and recognition of the value of not biting on upsetting thoughts. committed to act in line with this between now and the next session. Assessment: [place] arrived on time and was dressed appropriately with appropriate hygiene. He maintained appropriate eye contact and was alert. [place] spoke clearly and coherently. His thoughts were [...] emergency resources through this [facility] and the [place] Crisis Line number. Thus, current assessment of risk for suicide and homicide is low. DSM 5 Diagnostic Impressions Per Chart: Major Depressive Disorder, mild Plan: 's next visit is scheduled for June at 3pm via [facility]. He requested to receive [facility]HL measures via text message. /jonathan/ [place] Rivera, PhD Clinical Psychologist, Mental Health Clinic Signed: 05/16/2024 15:49 ROBER RIVERA [place] CNTRL WSTRN [facility]
--- OUTSIDE RECORDS SUMMARY | 2024-08-01 17:36 | XMS_ITS | Encounter Summary ---
Author Name [facility] [place] [facility] [place] [facility] [place] Address [address] [place] [address] Care Team Providers Care Certified Nurse Operating Room Name Role Phone CEDRIC CLARK Primary Care [...] Brooks's Name Patient's Relationship to Policy Brooks [facility]GANIZ[facility] ION [facility] L DEPT Dec 04, 2023 [phone] [id number] [phone] FR SARBJIT HAYES PATIENT Selected Encounter This section includes the information on record at [place] for the Encounter. Date/Time Encounter Type Encounter Description Reason Provider Source Jan 18, 2024 02:00 PM PSYTX W PT 60 MINUTES [facility] - IND ICD-10-CM F33.8 Other recurrent depressive disorders KRANTHI RIVERA Encounter Template Text not used by [place] Assessments - Encounter Diagnoses This section includes the primary and secondary diagnoses documented for the Encounter. Date/Time Primary/Secondary Diagnosis Diagnosis Name Provider Source Jan 18, 2024 02:58 PM PRIMARY Other recurrent depressive disorders KRANTHI RIVERA [place] [facility] Plan of Treatment: Future Appointments (+ 6 months) and Future Tests (+/- 45 days) The Plan of Treatment section includes future care activities for the patient from all [place] [facility]. This section includes future appointments and future orders which are active, pending or scheduled. Future Appointments This section includes appointments that were scheduled to occur 6 months from the date of the Encounter, up to a maximum of 20 appointments. The data comes from all [facility]. Appointment Date/Time Appointment Type Appointme nt Facility Name Feb 01, 2024 03:00 PM AMBULATORY - [place]ATRY [place] [facility] [place] [facility] Feb 15, 2024 03:00 PM AMBULATORY PSYCHIATRY [place] [facility] [place] [facility] Feb 16, 2024 03:00 PM AMBULATORY MEDICINE [place] [facility] [place] [facility] Feb 29, 2024 03:00 PM AMBULATORY PSYCHIATRY [place] [facility] [place] [facility] Mar 12, 2024 01:00 PM AMBULATORY MEDICINE [place] [facility] [place] [facility] Mar 14, 2024 03:00 PM AMBULATORY - PS[place]CHIATRY [place] [facility] [place] [facility] Mar 28, 2024 03:00 PM AMBULATORY - PSYCHIATRY [place] [facility] [place] [facility] Apr 18, 2024 03:00 PM AMBULATORY - PS[place]CHIATRY [place] [facility] [place] [facility] May 01, 2024 03:00 PM AMBULATORY - PS[place]CHIATRY [place] [facility] [place] [facility] May 08, 2024 10:00 AM AMBULATORY - MEDICINE [place] [facility] [place] [facility] May 16, 2024 03:00 PM AMBULATORY - PSYCHIATRY [place] [facility] [place] [facility] Jul 18, 2024 03:00 PM AMBULATORY PSYCHIATRY [place] [facility] [place] [facility] Active, Pending, and Scheduled Orders This section includes a listing of several types of active, pending, and scheduled orders, including clinic medications orders, diagnostic test orders, procedure orders and consult orders; where the start date of the order is 45 days before the date of the Encounter or 45 days after the date of theEncounter. The data comes from all [facility]. Test Date/Time Test Type Test Details Facility Name Feb 16, 2024 12:00 AM Laboratory - Chemi stry Order [facility] BLO[facility] Feb 16, 2024 12:00 AM Laboratory - Chemi stry Order OCCULT BLOOD FIT X1 SCREEN(IN-HOUSE) [facility] Feb 16, 2024 12:00 AM Laboratory - Chemi stry Order UREA NITROGEN BLOOD (SST-SERUM) SP [facility] Feb 16, 2024 12:00 AM Laboratory - Chemi stry Order HEPATITIS B SURFACE ANTIBODY (HBsAb)-WH BLOOD (SST-SERUM) SP [facility] Social History: Smoking Status (Most current) and Tobacco Use (All prior to encounter date) This section includes the most current, and the historical, smoking and tobacco- related health factors from the [place] facility where the Encounter took place. Current Smoking Status This section includes the most current smoking, or tobacco-related health factor, from the [place] facility where the Encounter took place. Date/Time Current Smoking Status Comment Facil ity Aug 11, 2023 03:00 PM VA-TOBACCO NEVER USED [facility] Tobacco Use History This section includes a history of the smoking, or tobacco-related health factors, that were collected on or before the date of the Encounter. The data comes from the [place] facility where the Encounter took place. Date/Time Smoking Status/Tobacco Use Comment F acility Aug 12, 2022 03:30 PM VA-TOBACCO [facility] USED [facility] Aug 12, 2021 03:30 PM VA-TOBACCO NEVER USED [facility] Aug 03, 2020 03:00 PM VA-TOBACCO NEVER USED [facility] Radiology Reports: +/- 30 days of [...] the Encounter. The data comes from all [facility] facilities. Date/Time Radiology Report Provider Source Feb 16, 2024 03:43 PM FOOT 3 OR MORE VIE WS (RIGHT): TRACY HAYES [id number] -1985 M Exm Date: FEB 16, 2024@15:43 Req Phys: CEDRIC CLARK Loc: CWM/NO/PACT 7 (Req'g Loc) Img Loc: [facility]/BUILDING 1 Service: [place] [address] (Case [id number] COMPLETE) FOOT 3 OR MORE VIEWS (RIGHT) (RAD Detailed) CPT:07670 Proc Modifiers : RIGHT CPT Modifiers : RT RIGHT SIDE Reason for Study: pain Clinical History: Covering resident, fellow, SOCIAL SERVICES ASSISTANT or attending: Joao KHAN Pager: teams Backup pager: History: pain Report Status: Verified Date Reported: FEB 16, 2024 Date Verified: FEB 16, 2024 Nurse Practitioner E-Sig:/ES/SUSHMA POWELL JR Report: Study: Weight-bearing AP, [...] Primary Interpreting Staff: SUSHMA POWELL JR, Radiologist (Nurse Practitioner) /SUSHMA MAGUIRE JR [facility] Encounter Notes: All associated encounter notes This section contains the clinical notes associated to the Encounter. Date/Time Encounter Note(s) Provider Source Jan 18, 2024 02:19 PM MENTAL HEALTH NOTE : LOCAL TITLE: ACT DEPRESSION THERAPY NOTE STANDARD TITLE: MENTAL HEALTH NOTE DATE OF NOTE: JAN 18, 2024@14:19 ENTRY DATE: JAN 18, 2024@14:19:20 AUTHOR: ROBER RIVERA EXP COSIGNER: URGENCY: STATUS: COMPLETED IP Individual Therapy Note (VVC) Acceptance and Commitment Therapy for Depression [facility] (clinic to non-VA location) 's location: Provider confirmed that Axel is currently located at Primary Address listed in [place] Video Connect consult and verified the contact phone number has provided verbal consent either today or previously when seen via [facility] in mental health. This consent was obtained after a full explanation of the risk and benefits of using telehealth for mental health appointments. Alternatives for obtaining care through an in-person mental health visit and the Franklin's right of refusal at any time during this session have been explained. Franklin's location/environment was surveyed by this provider to identify all participants and the Virtual Medical Room was locked (via enabling button option in VMR) once all invited/required attendees were present. Franklin identified with 2 identifiers: [X] Patient Name [X] Visual recognition Procedure: The patient was seen for a 55-minute [facility] individual psychotherapy session The Outpatient Individual Psychotherapy Services Agreement was reviewed on 09/14/23. Agreed to meet for 12-14 weekly to twice monthly individual therapy appointments utilizing Acceptance and Committment Therapy for Depression (ACT-D). Problem: Difficulty managing distressing thoughts and feelings related to stressors and deaths of loved ones Objectives: Franklin will engage in individual, weekly psychotherapy to increase his ability to tolerate distressing emotional experiences and to engage in behaviors that are consistent with his values. Progress: Completed ACT-D session 12. See content below. Assessment: Axel arrived on [...] emergency resources through this [facility] and the [employer] Crisis Line number. Thus, current assessment of risk for suicide and homicide is low. DSM 5 Diagnostic Impressions Per Chart: Major Depressive Disorder, mild Plan: Axel's next visit is scheduled for January at 3pm via [facility]. He requested to receive [facility] measures via text message on at 11am. ~~~ ACT for Depression - Action Phase Time in session (in minutes): 55 SESSION NUMBER: 12 SESSION FORMAT Video Telehealth Session SESSION LOCATION Mental Health Clinic DIAGNOSIS: Primary (focus of treatment): Major Depressive Disorder, mild ASSESSMENT Date Instrument Raw Trans Scale 01/18/2024 12:19 PHQ9 9 PHQ9 01/11/2024 11:07 PHQ9 7 PHQ9 01/04/2024 13:35 PHQ9 9 PHQ9 12/21/2023 14:09 PHQ9 6 PHQ9 12/01/2023 16:06 PHQ9 4 PHQ9 11/16/2023 16:11 PHQ9 4 PHQ9 10/19/2023 16:12 PHQ9 7 PHQ9 09/14/2023 13:50 PHQ9 4 PHQ9 Treatment objectives for this action phase session of Acceptance and Commitment Therapy (ACT) for depression included: committed action part 2 The following Core Processes were facilitated in this session: Contact with the Present moment and mindfulness exercises employed in this session include: Breathing Exercises The discussion with the related to Contact with the Present Moment included: reflection on his ability to focus during this practice vs. difficulty focusing while studying for and taking an exam earlier this week Exercises related to committed action employed in this session include: The Willingness Question The discussion with the Franklin related to Committed Action included: exploration of how to cultivate willingness and counteract potential regret. Homework/Practice Assignment: mindful awareness, committed actions, turning up knob on willingness PLAN Next session planned for agreed upon date/time of: January at 3pm via [facility] /jonathan/ Rober Rivera, PhD Clinical Psychologist, Mental Health Clinic Signed: 01/18/2024 14:58 ROBER RIVERA [place] [facility] [place] [facility] Jan 18, 2024 12:21 PM MENTAL HEALTH DIAG NOSTIC STUDY NOTE: LOCAL TITLE: MENTAL HEALTH DIAGNOSTIC STUDY STANDARD TITLE: MENTAL HEALTH DIAGNOSTIC STUDY NOTE DATE OF NOTE: JAN 18, 2024@12:21:39 ENTRY DATE: JAN 18, 2024@12:21:39 AUTHOR: ROBER RIVERA EXP COSIGNER: URGENCY: STATUS: COMPLETED Assessments were sent to the via text/email. These assessments were completed by TRACY HAYES on their own device on 01/18/2024 12:19:17 PM. PATIENT HEALTH QUESTIONNAIRE-9 (PHQ-9) The patient [...] energy: Several Days 5. Poor appetite, over-eating: More than half [...] others. PHQ-9 Total Score (past 180 days): 01/18/2024 9 01/11/2024 7 01/04/2024 9 12/21/2023 6 12/01/2023 4 11/16/2023 4 10/19/2023 7 09/14/2023 4 WORKING ALLIANCE INVENTORY-SHORT REVISED (AMBER-SR) The patient reported the following in regard to experiences with therapy or their therapist. 1. As a result of these sessions I am clearer as to how I might be able to change: Fairly Often 2. What I am doing in therapy gives me new ways of looking at my problem: Very Often 3. I believe my therapist likes me: Very Often 4. My therapist and I collaborate on setting goals for my therapy: Very Often 5. My therapist and I respect each other: Always 6. My therapist and I are working towards mutually agreed upon goals: Always 7. I feel that my therapist appreciates me: Always 8. My therapist and I agree on what is important for me to work on: Always 9. I feel my therapist cares about [...] are working with my problem is correct: Always Goal Score: 18 Task Score: 16 Farias Score: 18 Goal, Task, and Farias scores range from 4-20. Higher scores indicate better working alliance. AMBER-SR Task Score (past 180 days): 01/18/2024 16 12/01/2023 17 10/19/2023 16 09/14/2023 16 AMBER-SR Farias Score (past 180 days): 01/18/2024 18 12/01/2023 17 10/19/2023 17 09/14/2023 17 AMBER-SR Goal Score (past 180 days): 01/18/2024 18 12/01/2023 17 10/19/2023 18 09/14/2023 16 WORLD HEALTH ORGANIZATION QUALITY OF LIFE-BRIEF (WHOQOL-BREF) In the last four weeks... 1. How would you rate your quality of life: Good 2. How satisfied are you with your health: Neither satisfied nor dissatisfied 3. To what extent do you feel that physical pain prevents you from doing what you need to do: A moderate amount 4. How much do you need any medical treatment to function in your daily life: A little 5. How much do you enjoy life: Very much 6. To what extent do you feel your life to be meaningful: A moderate amount 7. How well are you able to concentrate: Not at all 8. How safe do you feel in your daily life: Very much 9. How healthy is your physical environment: A moderate amount 10. Do you have enough energy for everyday life: Moderately 11. Are you able to accept your bodily appearance: A little 12. Have you enough money to meet your needs: A little 13. How available to you is the information that you need in your day-to-day life: A little 14. To what extent do you have the opportunity for leisure activities: Moderately 15. How well are you able to get around: Good 16. How satisfied are you with your sleep: Dissatisfied 17. How satisfied are you with your ability to perform your daily living activities: Neither satisfied nor dissatisfied 18. How satisfied are you with your capacity for work: Dissatisfied 19. How satisfied are you with yourself: [...] you with your access to health services: Neither satisfied nor dissatisfied 25. How satisfied are you with your transport: Satisfied 26. In the last four weeks, how often do you have negative feelings such as blue mood, despair, anxiety, depression: Quite often Domain 1 - Physical Health (7-30): 21 Domain 2 - Psychological (6-30): 16 Domain 3 - Social relationships (3-15): 11 Domain 4 - Environment (8-40): 25 For each domain, higher scores indicate a higher quality of life in that area. WHOQOL-BREF Physical health (past 180 days): 01/18/2024 21 09/14/2023 24 WHOQOL-BREF Psychological (past 180 days): 01/18/2024 16 09/14/2023 18 WHOQOL-BREF Social relationships (past 180 days): 01/18/2024 11 09/14/2023 11 WHOQOL-BREF Environment (past 180 days): 01/18/2024 25 09/14/2023 22 WHOQOLBREF Domain One Transformed Score 0-100 (past 180 days): 01/18/2024 50 09/14/2023 61 WHOQOLBREF Domain Two Transformed Score 0-100 (past 180 days): 01/18/2024 42 09/14/2023 50 WHOQOLBREF Domain Three Transformed Score 0-100 (past 180 days): 01/18/2024 67 09/14/2023 67 WHOQOLBREF Domain Four Transformed Score 0-100 (past 180 days): 01/18/2024 53 09/14/2023 44 THE ACCEPTANCE AND ACTION QUESTIONNAIRE-II (AAQ-II) The [...] to live my life: Sometimes Total Score: 40 Scores range from 10 to 70 with higher scores indicating greater psychological flexibility. AAQ-II Total Score (past 180 days): 01/18/2024 40 01/11/2024 54 12/21/2023 45 12/01/2023 47 11/16/2023 52 10/19/2023 50 09/14/2023 43 FIVE FACET MINDFULNESS QUESTIONNAIRE (FFMQ) The patient [...] mind wanders off and I'm easily distracted: Very often or always true 6. When I take a shower [...] shouldn't be feeling the way I'm feeling: Sometimes true 11. I notice how foods and drinks affect my thoughts, bodily sensations, and emotions: Often true 12. It's hard for me to find the words to describe what I'm thinking: Sometimes true 13. I am easily distracted: Often true 14. I believe some of my thoughts are abnormal or bad and I shouldn't think that way: Sometimes true 15. I pay attention to sensations, such as the wind in my hair or sun on my face: Sometimes true 16. I have trouble thinking of the right words to express how I feel about things: Sometimes true 17. I make judgments about whether my thoughts are good or bad: Often true 18. I find it difficult to stay focused on what's happening in the present: Sometimes true 19. When I have distressing thoughts or images, I step back and am aware of the thought or image without getting taken over by it: Sometimes true 20. I pay attention to sounds, [...] shouldn't be thinking the way I'm thinking: Sometimes true 26. I notice the smells and aromas of things: Sometimes true 27. Even when I'm feeling terribly upset, I can find a way to put it into words: Sometimes true 28. I manning through activities without being really attentive to them: Sometimes true 29. When I have distressing thoughts or images I am able just to notice them without reacting: Sometimes true 30. I think some of my emotions are bad or inappropriate and I shouldn't feel them: Sometimes true 31. I notice visual elements in art or nature, such as colors, shapes, textures, or patterns of light and shadow: Rarely true 32. My natural tendency is to put my experiences into words: Sometimes true 33. When I have distressing thoughts or images, I just notice them and let them go: Rarely true 34. I do jobs or tasks automatically without being aware of what I'm doing: Sometimes true 35. When I have distressing thoughts or images, I circuit court judge myself as good or bad, depending what the thought/image is about: Often true 36. I pay attention to how my emotions affect my thoughts and behavior: Sometimes true 37. I can usually describe how I feel at the moment in considerable detail: Sometimes true 38. I find myself doing things without paying attention: Sometimes true 39. I disapprove of myself when I have irrational ideas: Often true Total Score (range: 39-195): 108 Observing (8-40): 24 Describing (8-40): 24 Acting with Awareness (8-40): 21 Nonjudging of inner experience (8-40): 20 Nonreactivity to inner experience (7-35): 19 Higher scores indicate a greater capacity for mindfulness. FFMQ Total Score (past 180 days): 01/18/2024 108 12/01/2023 110 09/14/2023 105 09/14/2023 102 FFMQ Observing (past 180 days): 01/18/2024 24 12/01/2023 24 09/14/2023 25 09/14/2023 22 FFMQ Describing (past 180 days): 01/18/2024 24 12/01/2023 23 09/14/2023 21 FFMQ Acting with Awareness (past 180 days): 01/18/2024 21 12/01/2023 25 09/14/2023 24 FFMQ Nonjudging of inner experience (past 180 days): 01/18/2024 20 12/01/2023 19 09/14/2023 18 FFMQ Nonreactivity to inner experience (past 180 days): 01/18/2024 19 12/01/2023 19 09/14/2023 17 /es/ Rober Rivera, PhD Clinical Psychologist, Mental Health Clinic Signed: 01/18/2024 14:02 ROBER RIVERA [facility]
--- OUTSIDE RECORDS SUMMARY | 2024-08-01 17:36 | XMS_ITS | Encounter Summary ---
Author Name [facility] [place] Organization [place] Address [address] [place] [address] Care Team Providers Care Customs Compliance Director Name Role Phone CEDRIC CLARK Primary Care [...] Patient's Relationship to Policy Brooks [facility] ORGANIZAT ION [facility] L DEPT Dec 04, 2023 [id number] [phone] [id number] [phone] FR SARBJIT HAYES PATIENT Selected Encounter This section includes the information on record at [place] for the Encounter. Date/Time Encounter Type Encounter Description Reason Provider Source Nov 30, 2023 03:00 PM PSYTX W PT 60 MINUTES MENTAL HEALTH CLINIC - IND ICD-10-CM F33.8 Other recurrent depressive disorders KRANTHI RIVERA Encounter Template Text not used by [place] Assessments - Encounter Diagnoses This section includes the primary and secondary diagnoses documented for the Encounter. Date/Time Primary/Secondary Diagnosis Diagnosis Name Provider Source Nov 30, 2023 04:00 PM PRIMARY Other recurrent depressive disorders KRANTHI RIVERA [place] [facility] [place] [facility] Plan of Treatment: Future Appointments (+ 6 months) and Future Tests (+/- 45 days) The Plan of Treatment section includes future care activities for the patient [facility] [place] [facility] This section includes future appointments and future orders which are active, pending or scheduled. Future Appointments This section includes appointments that were scheduled to occur 6 months from the date of the Encounter, up to a maximum of 20 appointments. The data comes from all [place] treatment facilities. Appointment Date/Time Appointment Type Appointme nt Facility Name Dec 14, 2023 03:00 PM AMBULATORY - PS[facility]CHIATRY [facility] [place] [facility] Dec 21, 2023 03:00 PM AMBULATORY - PS[facility]CHIATRY [facility] [place] [facility] Jan 04, 2024 02:00 PM AMBULATORY - PS[facility]CHIATRY [facility] [place] [facility] Jan 11, 2024 02:00 PM AMBULATORY - PS[facility]CHIATRY [facility] [place] [facility] Jan 18, 2024 02:00 PM AMBULATORY - PS[facility]CHIATRY [facility] [place] [facility] Feb 01, 2024 03:00 PM AMBULATORY - PS[facility]CHIATRY [facility] [place] [facility] Feb 15, 2024 03:00 PM AMBULATORY - PSYCHIATRY [facility] [place] [facility] Feb 16, 2024 03:00 PM AMBULATORY - MEDICINE [facility] [place] [facility] Feb 29, 2024 03:00 PM AMBULATORY - PSYCHIATRY [facility] [place] [facility] Mar 12, 2024 01:00 PM AMBULATORY - MEDICINE [facility] [place] [facility] Mar 14, 2024 03:00 PM AMBULATORY - PSYCHIATRY [facility] [place] [facility] Mar 28, 2024 03:00 PM AMBULATORY - PSYCHIATRY [facility] [place] [facility] Apr 18, 2024 03:00 PM AMBULATORY - PSYCHIATRY [facility] [place] [facility] May 01, 2024 03:00 PM AMBULATORY - PSYCHIATRY [facility] [place] [facility] May 08, 2024 10:00 AM AMBULATORY - MEDICINE [facility] [place] [facility] May 16, 2024 03:00 PM AMBULATORY - PSYCHIATRY [facility] [place] [facility] Social History: Smoking Status (Most current) [...] 11, 2023 03:00 PM VA-TOBACCO NEVER USED [place] [facility] Tobacco Use History This section includes a history of the smoking, or tobacco-related health factors, that were collected on or before the date of the Encounter. The data comes from the [place] facility where the Encounter took place. Date/Time Smoking Status/Tobacco Use Comment F acility Aug 12, 2022 03:30 PM VA-TOBACCO NEVER USED [place] [facility] [place] [facility] Aug 12, 2021 03:30 PM VA-TOBACCO NEVER USED [place] [facility] [place] [facility] Aug 03, 2020 03:00 PM VA-TOBACCO NEVER USED [place] [facility] Encounter Notes: All associated encounter notes This section contains the clinical notes associated to the Encounter. Date/Time Encounter Note(s) Provider Source Nov 30, 2023 03:43 PM MENTAL HEALTH NOTE : LOCAL TITLE: ACT DEPRESSION THERAPY NOTE STANDARD TITLE: MENTAL HEALTH NOTE DATE OF NOTE: NOV 30, 2023@15:43 ENTRY DATE: NOV 30, 2023@15:43:07 AUTHOR: ROBER RIVERA COSIGNER: URGENCY: STATUS: COMPLETED Outpatient Mental Health Clinic Individual Therapy Note (VVC) Acceptance and Commitment Therapy for Depression [place] [employer] [facility] (clinic to non-VA location) 's location: [...] time during this session have been explained. [place]'s location/environment was surveyed by this provider to identify all participants and the Virtual Medical Room was locked (via enabling button option in VMR) once all invited/required attendees were present. [place] identified with 2 identifiers: [X] Patient Name [X] Visual recognition Procedure: The patient was seen for a 55-minute [facility] individual psychotherapy session The Outpatient Individual Psychotherapy Services Agreement was reviewed on 09/14/23. Agreed to meet for 12 weekly to twice monthly individual therapy appointments utilizing Acceptance and Committment Therapy for Depression (ACT-D). Problem: Difficulty managing distressing thoughts and feelings related to stressors and deaths of loved ones Objectives: [place] will engage in individual, weekly psychotherapy to increase his ability to tolerate distressing emotional experiences and to engage in behaviors that are consistent with his values. Progress: Completed ACT-D session 7. See content below. Assessment: [place] arrived on time and was dressed appropriately with appropriate hygiene. He maintained appropriate eye contact and was alert. [place] spoke clearly and coherently. His thoughts were [...] Plan: Axel's next visit is scheduled for November at 3pm via [facility]. ~~~ ACT for Depression - Action Phase Time in session (in minutes): 55 SESSION NUMBER: 7 SESSION FORMAT Video Telehealth Session SESSION LOCATION Mental Health Clinic DIAGNOSIS: Primary (focus of treatment): Major Depressive Disorder, mild Treatment objectives for this action phase session of Acceptance and Commitment Therapy (ACT) for depression included: [id number] The following Core Processes were facilitated in this session: Contact with the Present moment and mindfulness exercises employed in this session include: Breathing Exercises The discussion with the [place] related to Contact with the Present Moment included: awareness of the body and worry thoughts Ungq-tz-[id number] exercises employed in this session: Observer Exercise The discussion with the [place] related to Gffg-gr-Rkkovzw included: Reflection on self as the observer and the container. Discussion of how to cultivate a bird's eye view and to not get overwhelmed or consumed by parts of experience. Homework/Practice Assignment: utilize mindful awareness, cultivate observer self PLAN Next session planned for agreed upon date/time of: December at 3pm via VVC /jonathan/ Rober Rivera, PhD Clinical Psychologist, Mental Health Clinic Signed: 11/30/2023 16:00 ROBER RIVERA [facility]
--- OUTSIDE RECORDS SUMMARY | 2024-08-01 17:36 | XMS_ITS | Encounter Summary ---
Author Name [facility] [place] Address [address] [place] [address] Care Team Providers Care Rn Lab Name Role Phone CEDRIC CLARK Primary Care [...] Patient's Relationship to Policy Brooks [facility] ORGANIZAT ION [facility] SCH L DEPT Dec 04, 2023 [id number] [phone] [id number] [phone] FR SARBJIT HAYES PATIENT Selected Encounter This section includes the information on record at [place] for the Encounter. Date/Time Encounter Type Encounter Description Reason Provider Source Aug 17, 2023 03:00 PM PSYTX W PT 60 MINUTES [facility]ENTAL [facility]INIC - IND ICD-10-CM F33.8 Other recurrent depressive disorders KRANTHI RIVERA Encounter Template Text not used by [place] Assessments - Encounter Diagnoses This section includes the primary and secondary diagnoses documented for the Encounter. Date/Time Primary/Secondary Diagnosis Diagnosis Name Provider Source Aug 17, 2023 03:54 PM PRIMARY Other recurrent depressive disorders KRANTHI RIVERA [place] [facility] [place] [facility] Plan of Treatment: Future Appointments (+ 6 months) and Future Tests (+/- 45 days) The Plan of Treatment section includes future care activities for the patient from all [place] [facility]. This section includes future appointments and future orders which are active, pending or scheduled. Future Appointments This section includes appointments that were scheduled to occur 6 months from the date of the Encounter, up to a maximum of 20 appointments. The data comes from all [place] treatment facilities. Appointment Date/Time Appointment Type Appointme nt Facility Name Aug 24, 2023 03:00 PM AMBULATORY - PSYCHIATRY [facility] [place] [facility] Sep 14, 2023 03:00 PM AMBULATORY - PSYCHIATRY [facility] [place] [facility] Sep 19, 2023 01:00 PM AMBULATORY - PSYCHIATRY [facility] [place] [facility] October 12, 2023 03:00 PM AMBULATORY - PSYCHIATRY [facility] [place] [facility] October 19, 2023 03:00 PM AMBULATORY - PSYCHIATRY [facility] [place] [facility] October 26, 2023 03:00 PM AMBULATORY - PSYCHIATRY [facility] [place] [facility] Nov 16, 2023 03:00 PM AMBULATORY - PSYCHIATRY [facility] [place] [facility] Nov 23, 2023 03:00 PM AMBULATORY - PSYCHIATRY [facility] [place] [facility] Nov 30, 2023 03:00 PM AMBULATORY - PSYCHIATRY [facility] [place] [facility] Dec 14, 2023 03:00 PM AMBULATORY - PSYCHIATRY [facility] [place] [facility] Dec 21, 2023 03:00 PM AMBULATORY - PSYCHIATRY [facility] [place] [facility] Jan 04, 2024 02:00 PM AMBULATORY - PSYCHIATRY [facility] [place] [facility] Jan 11, 2024 02:00 PM AMBULATORY - PSYCHIATRY [facility] [place] [facility] Jan 18, 2024 02:00 PM AMBULATORY - PSYCHIATRY [facility] [place] [facility] Feb 01, 2024 03:00 PM AMBULATORY - PSYCHIATRY [facility] [place] [facility] Feb 15, 2024 03:00 PM AMBULATORY - PSYCHIATRY [facility] [place] [facility] Feb 16, 2024 03:00 PM [facility] Lab Results: +/- 30 days of the encounter This section includes the Chemistry and Hematology Lab Results on record with [place] for the patient. Radiology Reports and Pathology Reports are provided separately, in subsequent sections. Lab Results This section contains the Chemistry/Hematology Results that were resulted 30 days before or 30 daysafter the date of the Encounter. Date/Time Source Result Type Result - Unit Interpretation Reference Range Comment Aug 11, 2023 03:51 PM [facility] THYROID T4 FREE(FT4) Specimen Type: SERUM No comment entered. Ordering Provider: QUIRINO CLARK AM Report Released Date/Time: Jul 27, 2023 03:16 PM Reporting Lab: [address] [address] Performing Lab: [facility] [address] [facility] [address] THYROID T4 FREE(FT4) 1.14 ng/dL 0.6-1.6 Aug 11, 2023 03:51 PM [facility] HEPATITIS B SURFACE ANTIGEN (HBsAg)-WH Specimen Type: SERUM Comment: A Reactive result ( Positive prior to 03/18/13) is diagnostic of acute or chronic hepatitis B infection. The presence of Hepatitis B surface antigen is frequently associated with infectivity. Ordering Provider: QUIRINO CLARK AM Report Released Date/Time: Jul 27, 2023 03:16 PM Reporting Lab: [address] [address] Performing Lab: [facility] [address] [facility] [address] HBsAg Non Reactive Non Reactive Aug 11, 2023 03:51 PM [facility] BASIC METABOLIC PANEL (non-fasting) Specimen Type: SERUM No comment entered. Ordering Provider: QUIRINO CLARK AM Report Released Date/Time: Jul 27, 2023 03:16 PM Reporting Lab: [address] [address] Performing Lab: [address] [address] UREA NITROGEN 18 mg/dL 7-25 GLUCOSE 104 mg/dL H 65-100 SODIUM 138 mmol/L 135-145 POTASSIUM 4.0 mmol/L 3.5-5.0 CHLORIDE 107 mmol/L 100-110 CO2 24 meq/L 20-30 CREATININE, Serum 0.87 mg/dL 0.50-1.40 eGFR(CKD-EPI 2020) >90 mL/min >60 Aug 11, 2023 03:51 PM [facility] CBC Specimen Type: BLOOD No comment entered. Ordering Provider: QUIRINO CLARK AM Report Released Date/Time: Jul 27, 2023 03:16 PM Reporting Lab: [address] [address] Performing Lab: [address] [address] WBC 8.56 10*3/uL 4.50-11.00 RBC 4.55 10*6/uL 4.23-5.66 HGB 14.1 g/dL 12.8-17 HCT 40.7 39.2-50.4 MCV 89.5 fL 82-99 MCHC 34.6 g/dL 30.8-35.1 PLT 313 10*3/uL 140-360 RDW-CV 12.5 12.0-16.0 MCH 31.0 pg 26.2-32.6 Aug 11, 2023 03:51 PM [facility] TSH Specimen Type: SERUM No comment entered. Ordering Provider: QUIRINO CLARK AM Report Released Date/Time: Jul 27, 2023 03:16 PM Reporting Lab: [address] [address] Performing Lab: [address] [address] TSH 0.75 u[IU]/mL 0.35-5.00 Aug 11, 2023 03:51 PM [facility] LIPID PANEL, NON FASTING Specimen Type: SERUM No comment entered. Ordering Provider: QUIRINO CLARK AM Report Released Date/Time: Jul 27, 2023 03:16 PM Reporting Lab: [facility] [address] [facility] [address] Performing Lab: [facility] [address] [facility] [address] CHOLESTEROL 203 mg/dL H TRIGLYCERIDE 260 mg/dL H 0-150 LDL calculated 117 mg/dL 0-129 CHOL/HDL 6.0 HDL CHOLESTEROL 34 mg/dL L 40-60 Aug 11, 2023 03:51 PM [facility] LIVER FUNCTION Specimen Type: SERUM No comment entered. Ordering Provider: QUIRINO CLARK AM Report Released Date/Time: Jul 27, 2023 03:16 PM Reporting Lab: [facility] [address] [facility] [address] Performing Lab: [address] [address] PROTEIN,TOTAL 7.3 g/dL 6.0-8.3 ALBUMIN 3.8 g/dL 3.5-5.0 ALKALINE PHOSPHATASE 94 U/L 40-150 AST 37 U/L H 5-34 ALT 80 U/L H BILIRUBIN, TOTAL 0.4 mg/dL 0.2-1.2 Aug 11, 2023 03:51 PM [facility] HEMOGLOBIN A1C PANEL Specimen Type: BLOOD Comment: Values obtained from A1C measurements can vary. For atypical A1C assays, a reported value of 7.0 could actually be between 6.72 and 7.28 if measured by a reference method. A reported value of 9.0 could actually be between 8.73 and 9.27. Ref: http://www.ngs p.org/CAPdata. asp Ordering Provider: QUIRINO CLARK AM Report Released Date/Time: Jul 27, 2023 03:16 PM Reporting Lab: [address] [address] Performing Lab: [address] [address] HEMOGLOBIN A1C 5.3 4.0-5.6 Social History: Smoking Status (Most current) and Tobacco Use (All prior to encounter date) This section includes the most current, and the historical, smoking and tobacco- related health factors from the [place] facility where the Encounter took place. Current Smoking Status This section includes the most current smoking, or tobacco-related health factor, from the [place] facility where the Encounter took place. Date/Time Current Smoking Status Comment Tato osullivan Aug 11, 2023 03:00 PM VA-TOBACCO NEVER USED [place] [facility] [facility] Tobacco Use History This section includes a history of the smoking, or tobacco-related health factors, that were collected on or before the date of the Encounter. The data comes from the [place] facility where the Encounter took place. Date/Time Smoking Status/Tobacco Use Comment F acility Aug 12, 2022 03:30 PM VA-TOBACCO NEVER USED [place] [facility] [place] [facility] Aug 12, 2021 03:30 PM VA-TOBACCO NEVER USED [place] [facility] [place] [facility] Aug 03, 2020 03:00 PM VA-TOBACCO NEVER USED [place] [facility] [place] [facility] Encounter Notes: All associated encounter notes This section contains the clinical notes associated to the Encounter. Date/Time Encounter Note(s) Provider Source Aug 17, 2023 03:10 PM TELEHEALTH NOTE: LOCAL TITLE: [place] [facility] [facility] PSYCHOLOGY NOTE STANDARD TITLE: TELEHEALTH NOTE DATE OF NOTE: AUG 17, 2023@15:10 ENTRY DATE: AUG 17, 2023@15:10:27 AUTHOR: ROBRE RIVERA EXP COSIGNER: URGENCY: STATUS: COMPLETED Outpatient Mental Health Clinic Individual Therapy Note (VVC) [place] [employer] [facility] (clinic to non-VA location) 's location: Provider confirmed that is currently located at Primary Address listed in [place] Video Connect consult and verified the contact phone number [place] has provided verbal consent either today or previously when seen via VVC in mental health. This consent was obtained after a full explanation of the risk and benefits of using telehealth for mental health appointments. Alternatives for obtaining care through an in-person mental health visit and the [place]'s right of refusal at any time during this session have been explained. 's location/environment was surveyed by this provider to identify all participants and the Virtual Medical Room was locked (via enabling button option in R) once all invited/required attendees were present. Procedure: The patient was seen for a 50-minute VVC individual psychotherapy session The Outpatient Individual Psychotherapy Services Agreement was reviewed on 03/16/23. Agreed to meet for 11 weekly individual therapy appointments to strengthen [place]'s ability to respond in adaptive ways to distressing thoughts, feelings, and stressors as well as to process losses. Problem: Difficulty managing distressing thoughts and feelings related to stressors and deaths of loved ones Objectives: Axel will engage in individual, weekly psychotherapy to increase his ability to tolerate distressing emotional experiences and to engage in behaviors that are consistent with his values. Progress: Axel spoke about his continued practice of using a bird's eye view in several circumstances, considering when this has been helpful and when he has been stuck. [place] discussed his experiences of stress and worry thoughts about the impact of stress on his body. He considered the value of building mindfulness practice into his nightly schedule and explored how to do so, including placing a visual reminder in his bathroom. [place] considered ways to defuse from worry thoughts by viewing them as a flavor of ice cream, by singing a funny tune, and/or by reminding himself about things he is looking forward to rather than dreading. 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 explored the experience of a [place] finger trap and ways that leaning into and acknowledging, rather than trying to get rid of, might be useful with his worries. He identified the potential value in asking himself what expectations of himself he does and does not want to uphold. Axel committed to read the ACT-D brochure. Assessment: Axel arrived on time and was [...] was reminded of emergency resources through this [place] and the Veterans Crisis Line number. Thus, current assessment of risk for suicide and homicide is low. DSM 5 Diagnostic Impressions Per Chart: Major Depressive Disorder, mild Plan: 's next visit is scheduled for August at 3pm via C. /jonathan/ Rober Rivera, PhD Clinical Psychologist, Mental Health Clinic Signed: 08/17/2023 15:54 ROBER RIVERA [place] [facility]
--- OUTSIDE RECORDS SUMMARY | 2024-08-01 17:36 | XMS_ITS | Encounter Summary ---
Author Name [facility] [place] [facility] [place] [facility] [place] Address [address] [place] [address] Care Team Providers Care Signal Maintainer Helper Name Role Phone CEDRIC CLARK Primary Care [...] Patient's Relationship to Policy Brooks [facility] ORGANIZAT ION [facility] DEPT Dec 04, 2023 [id number] [phone] [id number] [phone] FR SARBJIT HAYES PATIENT Selected Encounter This section includes the information on record at [place] for the Encounter. Date/Time Encounter Type Encounter Description Reason Provider Source October 19, 2023 03:00 PM PSYTX W PT 60 MINUTES [facility] - IND ICD-10-CM F33.8 Other recurrent depressive disorders KRANTHI RIVERA Encounter Template Text not used by [place] Assessments - Encounter Diagnoses This section includes the primary and secondary diagnoses documented for the Encounter. Date/Time Primary/Secondary Diagnosis Diagnosis Name Provider Source October 19, 2023 04:06 PM PRIMARY Other recurrent depressive disorders KRANTHI RIVERA [facility] [place] [facility] Plan of Treatment: Future Appointments (+ 6 months) and Future Tests (+/- 45 days) The Plan of Treatment section includes future care activities for the patient from all [place] [facility] This section includes future appointments and future orders which are active, pending or scheduled. Future Appointments This section includes appointments that were scheduled to occur 6 months from the date of the Encounter, up to a maximum of 20 appointments. The data comes from all [place] treatment facilities. Appointment Date/Time Appointment Type Appointme nt Facility Name October 26, 2023 03:00 PM AMBULATORY - PS[facility]CHIATRY [facility] [place] [facility] Nov 16, 2023 03:00 PM AMBULATORY - PS[facility]IATRY [facility] [place] [facility] Nov 23, 2023 03:00 PM AMBULATORY - PS[facility]IATRY [facility] [place] [facility] Nov 30, 2023 03:00 PM AMBULATORY - PS[facility]CHIATRY [facility] [place] [facility] Dec 14, 2023 03:00 PM AMBULATORY - PS[facility]CHIATRY [facility] [place] [facility] Dec 21, 2023 03:00 PM AMBULATORY - PS[facility]CHIATRY [facility] [place] [facility] Jan 04, 2024 02:00 PM AMBULATORY - PS[facility]CHIATRY [facility] [place] [facility] Jan 11, 2024 02:00 PM AMBULATORY - PS[facility]CHIATRY [facility] [place] [facility] Jan 18, 2024 02:00 PM AMBULATORY - PS[facility]CHIATRY [facility] [place] [facility] Feb 01, 2024 03:00 PM AMBULATORY - PS[facility]CHIATRY [facility] [place] [facility] Feb 15, 2024 03:00 PM AMBULATORY - PS[facility]CHIATRY [facility] [place] [facility] Feb 16, 2024 03:00 PM AMBULATORY - MEDICINE [facility] [place] [facility] Feb 29, 2024 03:00 PM AMBULATORY - PSYCHIATRY [facility] [place] [facility] Mar 12, 2024 01:00 PM AMBULATORY - MEDICINE [facility] [place] [facility] Mar 14, 2024 03:00 PM AMBULATORY - PS[facility]CHIATRY [facility] [place] [facility] Mar 28, 2024 03:00 PM AMBULATORY - PS[facility]CHIATRY [facility] [place] [facility] Apr 18, 2024 03:00 PM [facility] [place] [facility] Social History: Smoking Status (Most current) [...] 11, 2023 03:00 PM VA[facility]TO[facility]ACCO NEVER USED [place] [facility] Tobacco Use History This section includes a history of the smoking, or tobacco-related health factors, that were collected on or before the date of the Encounter. The data comes from the [place] facility where the Encounter took place. Date/Time Smoking Status/Tobacco Use Comment Ha acjen Aug 12, 2022 03:30 PM VA-TOBACCO NEVER USED [place] [facility] [place] [facility] Aug 12, 2021 03:30 PM VA-TOBACCO NEVER USED [place] [facility] [place] [facility] Aug 03, 2020 03:00 PM [facility] [place] [facility] Encounter Notes: All associated encounter notes This section contains the clinical notes associated to the Encounter. Date/Time Encounter Note(s) Provider Source October 20, 2023 08:57 AM MENTAL HEALTH DIAG NOSTIC STUDY NOTE: LOCAL TITLE: MENTAL HEALTH DIAGNOSTIC STUDY STANDARD TITLE: MENTAL HEALTH DIAGNOSTIC STUDY NOTE DATE OF NOTE: OCTOBER 20, 2023@08:57:53 ENTRY DATE: OCTOBER 20, 2023@08:57:53 AUTHOR: ROBER RIVERA EXP COSIGNER: URGENCY: STATUS: COMPLETED Assessments were sent to the via text/email. These assessments were completed by TRACY HAYES on their own device on 10/19/2023 4:12:06 PM. PATIENT HEALTH QUESTIONNAIRE-9 (PHQ-9) The patient reported some symptoms of depression; symptoms are not consistent with a major depressive episode. Patient reported being bothered by the following over the last 2 weeks: 1. Little interest or pleasure: Several Days 2. Feeling down, depressed or hopeless: Several [...] others. PHQ-9 Total Score (past 180 days): 10/19/2023 7 09/14/2023 4 WORKING ALLIANCE INVENTORY-SHORT [...] changes that would be good for me: Always 12. I believe the way we are working with my problem is correct: Always Goal Score: 18 Task Score: 16 Farias Score: 17 Goal, Task, and Farias scores range from 4-20. Higher scores indicate better working alliance. AMBER-SR Task Score (past 180 days): 10/19/2023 16 09/14/2023 16 AMBER-SR Farias Score (past 180 days): 10/19/2023 17 09/14/2023 17 AMBER-SR Goal Score (past 180 days): 10/19/2023 18 09/14/2023 16 THE ACCEPTANCE AND ACTION QUESTIONNAIRE-II (AAQ-II) The [...] get in the way of my success: Sometimes 10. My thoughts and feelings do not get in the way of how I want to live my life: Seldom true Total Score: 50 Scores range from 10 to 70 with higher scores indicating greater psychological flexibility. AAQ-II Total Score (past 180 days): 10/19/2023 50 09/14/2023 43 /jonathan/ Rober Rivera, PhD Clinical Psychologist, Mental Health Clinic Signed: 10/20/2023 09:27 [facility]ARL [facility] [place] [facility] October 19, 2023 03:18 PM MENTAL HEALTH NOTE : LOCAL TITLE: ACT DEPRESSION THERAPY NOTE STANDARD TITLE: MENTAL HEALTH NOTE DATE OF NOTE: OCTOBER 19, 2023@15:18 ENTRY DATE: OCTOBER 19, 2023@15:18:52 AUTHOR: ROBER RIVERA EXP COSIGNER: URGENCY: STATUS: COMPLETED Outpatient Mental Health Clinic Individual Therapy Note (VVC) Acceptance and Commitment Therapy for Depression [place] [facility] (clinic to non-VA location) 's [...] The patient was seen for a 60-minute VVC individual psychotherapy session The Outpatient Individual [...] with his values. Progress: Completed ACT-D session 3. See content below. Assessment: [place] arrived on time and was dressed appropriately [...] ideation without lifetime intent, plan, or behavior. [place] was reminded of emergency resources through this [facility] and the [facility] Crisis [facility] number. Thus, current assessment of risk for suicide and homicide is low. DSM 5 Diagnostic Impressions Per Chart: Major Depressive Disorder, mild Plan: [place]'s next visit is scheduled for October at 1pm via VVC. ~~~ Acceptance and Commitment Therapy (ACT) for Depression - Beginning Phase Time in session (in minutes): 60 SESSION NUMBER: 3 SESSION FORMAT Video Telehealth Session SESSION LOCATION Mental Health Clinic DIAGNOSIS: Primary (focus of treatment): Major Depressive Disorder, mild Session Content: In this beginning phase session of ACT for Depression, the following therapeutic activities were performed. The following interventions/metaphors were used to assist the [place] in understanding the treatment philosophy and process of ACT for depression: Roller Coaster Metaphor Other metaphor or intervention: mindful awareness practice, qnt-dl-ene-hole, exploration of creative hopelessness of the control agenda The had the following response to this rationale: Identifying shovels, considering ways to ride the roller coaster of grief and connection to others, even with risk of loss PLAN Next session planned for agreed upon date/time of: October at 3pm Ronny /jonathan/ Rober Rivera, PhD Clinical Psychologist, Mental Health Clinic Signed: 10/19/2023 16:06 ROBER RIVERA [place] [facility] [place] [facility]
--- OUTSIDE RECORDS SUMMARY | 2024-08-01 17:36 | XMS_ITS | Encounter Summary ---
Author Name [facility] [place] [facility] [place] [facility] [place] Address [address] [place] [address] Care Team Providers Care Lunchroom Worker Name Role Phone CEDRIC CLARK Primary Care [...] Brooks [facility] ORGANIZAT ION [facility] DEPT Dec 04, [id number] [phone] [phone] FR SARBJIT HAYES PATIENT Selected Encounter This section includes the information on record at [place] for the Encounter. Date/Time Encounter Type Encounter Description Reason Provider Source Feb 29, 2024 03:00 PM PSYTX W PT 60 MINUTES [facility] - IND ICD-10-CM F33.8 Other recurrent depressive disorders KRANTHI RIVERA Encounter Template Text not used by [place] Assessments - Encounter Diagnoses This section includes the primary and secondary diagnoses documented for the Encounter. Date/Time Primary/Secondary Diagnosis Diagnosis Name Provider Source Feb 29, 2024 04:04 PM PRIMARY Other recurrent depressive disorders KRANTHI RIVERA [place] [facility] Plan of Treatment: Future Appointments (+ 6 months) and Future Tests (+/- 45 days) The Plan of Treatment section includes future care activities for the patient [facility] [place] [facility] This section includes future appointments and future orders which are active, pending or scheduled. Future Appointments This section includes appointments that were scheduled to occur 6 months from the date of the Encounter, up to a maximum of 20 appointments. The data comes from all [facility]. Appointment Date/Time Appointment Type Appointme nt Facility Name Mar 12, 2024 01:00 PM AMBULATORY - MEDICINE [place] [facility] [place] [facility] Mar 14, 2024 03:00 PM AMBULATORY - PSYCHIATRY [facility] [place] [facility] Mar 28, 2024 03:00 PM AMBULATORY PSYCHIATRY [facility] [place] [facility] Apr 18, 2024 03:00 PM AMBULATORY PSYCHIATRY [place] [facility] [place] [facility] May 01, 2024 03:00 PM AMBULATORY PSYCHIATRY [facility] [place] [facility] May 08, 2024 10:00 AM AMBULATORY - MEDICINE [place] [facility] [place] [facility] May 16, 2024 03:00 PM AMBULATORY PSYCHIATRY [place] [facility] [place] [facility] Jul 18, 2024 03:00 PM AMBULATORY PSYCHIATRY [facility] [place] [facility] Jul 24, 2024 10:30 AM AMBULATORY PSYCHIATRY [facility] [place] [facility] Aug 01, 2024 03:00 PM AMBULATORY PSYCHIATRY [place] [facility] [place] [facility] Aug 16, 2024 03:00 PM AMBULATORY - MEDICINE [facility] [place] [facility] Active, Pending, and Scheduled Orders This section includes a listing of several types of active, pending, and scheduled orders, including clinic medications orders, diagnostic test orders, procedure orders and consult orders; where the start date of the order is 45 days before the date of the Encounter or 45 days after the date of theEncounter. The data comes from all [facility]. Test Date/Time Test Type Test Details Facility Name Feb 16, 2024 12:00 AM Laboratory - Chemi stry Order CBC BLOOD (LAV-BLOOD) [facility] [place] [facility] Feb 16, 2024 12:00 AM Laboratory - Chemi stry Order OCCULT BLOOD FIT X1 SCREEN(IN-HOUSE) STOOL FECES [facility] Feb 16, 2024 12:00 AM Laboratory - Chemi stry Order UREA NITROGEN BLOOD (SST-SERUM) [facility] Feb 16, 2024 12:00 AM Laboratory - Chemi stry Order HEPATITIS B SURFACE ANTIBODY (HBsAb)-WH BLOOD (SST-SERUM) [facility] Social History: Smoking Status (Most current) and Tobacco Use (All prior to encounter date) This section includes the most current, and the historical, smoking and tobacco- related health factors from the [place] facility where the Encounter took place. Current Smoking Status This section includes the most current smoking, or tobacco-related health factor, from the [place] facility where the Encounter took place. Date/Time Current Smoking Status Comment Facil ity Aug 11, 2023 03:00 PM VA-TOBACCO NEVER USED [facility] Tobacco Use History This section includes a history of the smoking, or tobacco-related health factors, that were collected on or before the date of the Encounter. The data comes from the [place] facility where the Encounter took place. Date/Time Smoking Status/Tobacco Use Comment F acility Aug 12, 2022 03:30 PM VA-TOBACCO NEVER USED [facility] Aug 12, 2021 03:30 PM VATOBACCO NEVER USED [facility] Aug 03, 2020 03:00 PM VATOBACCO NEVER USED [facility] Radiology Reports: +/- 30 days of [...] the Encounter. The data comes from all [place] treatment facilities. Date/Time Radiology Report Provider Source Feb 16, 2024 03:43 PM FOOT 3 OR MORE VIE WS (RIGHT): TRACY HAYES [id number] -1985 M Exm Date: FEB 16, 2024@15:43 Req Phys: CEDRIC CLARK Loc: CWM/NO/PACT 7 (Req'g Loc) Img Loc: [facility] Service: [place] [address] (Case [id number] COMPLETE) FOOT 3 OR MORE VIEWS (RIGHT) (RAD Detailed) CPT:60609 Proc Modifiers : RIGHT CPT Modifiers : RT RIGHT SIDE Reason for Study: pain Clinical History: Covering resident, fellow, DEPARTMENT OPERATIONS MANAGER or attending: Joao KHAN Pager: teams Backup pager: History: pain Report Status: Verified Date Reported: FEB 16, 2024 Date Verified: FEB 16, 2024 Masonry Contractor E-Sig:/ES/SUSHMA POWELL JR Report: Study: Weight-bearing AP, [...] Primary Interpreting Staff: SUSHMA POWELL JR, Radiologist (Masonry Contractor) /SUSHMA MAGUIRE JR [facility] Encounter Notes: All associated encounter notes This section contains the clinical notes associated to the Encounter. Date/Time Encounter Note(s) Provider Source Mar 01, 2024 04:11 PM MENTAL HEALTH DIAG NOSTIC STUDY NOTE: LOCAL TITLE: MENTAL HEALTH DIAGNOSTIC STUDY STANDARD TITLE: MENTAL HEALTH DIAGNOSTIC STUDY NOTE DATE OF NOTE: MAR 01, 2024@16:11:40 ENTRY DATE: MAR 01, 2024@16:11:40 AUTHOR: ROBER RIVERA COSIGNER: URGENCY: STATUS: COMPLETED Assessments were sent to the via text/email. These assessments were completed by TRACY HAYES on their own device on 03/01/2024 3:23:15 PM. PATIENT HEALTH QUESTIONNAIRE-9 (PHQ-9) The patient [...] Not at all PHQ-9 total score = 11 1-4 = minimal symptoms 5-9= mild symptoms 10-14= moderate symptoms 15-19= moderately severe symptoms 20-27= severe depressive symptoms The patient stated that the depressive symptoms made it somewhat difficult to work, take care of things at home, or get along with others. PHQ-9 Total Score (past 180 days): 03/01/2024 11 02/15/2024 6 02/01/2024 11 01/18/2024 9 01/11/2024 [...] I am in control of my life: Very seldom true 7. Emotions cause problems in my life: Very seldom true 8. It seems like most people are handling their lives better than I am: Very seldom true 9. Worries get in the way of my success: Seldom true 10. My thoughts and feelings do not get in the way of how I want to live my life: Very seldom true Total Score: 47 Scores range from 10 to 70 with higher scores indicating greater psychological flexibility. AAQ-II Total Score (past 180 days): 03/01/2024 47 02/15/2024 50 01/18/2024 40 01/11/2024 54 12/21/2023 45 12/01/2023 47 11/16/2023 52 10/19/2023 50 09/14/2023 43 /es/ Rober Rivera, PhD Clinical Psychologist, Mental Health Clinic Signed: 03/01/2024 16:20 ROBER RIVERA [place] [facility] [place] [facility] Feb 29, 2024 03:38 PM TELEHEALTH NOTE: LOCAL TITLE: [place] [employer] PSYCHOLOGY NOTE STANDARD TITLE: TELEHEALTH NOTE DATE OF NOTE: FEB 29, 2024@15:38 ENTRY DATE: FEB 29, 2024@15:38:50 AUTHOR: ROBER RIVERA EXP COSIGNER: URGENCY: STATUS: COMPLETED BHIP Individual Therapy Note (VVC) [place] [facility] (clinic to non-VA location) 's location: Provider confirmed that is currently located at Primary Address listed in [place] [facility] consult and verified the contact phone number has provided verbal consent either today or previously when seen via VVC in mental health. This consent was obtained after a full explanation of the risk and benefits of using telehealth for mental health appointments. Alternatives for obtaining care through an in-person mental health visit and the [place]'s right of refusal at any time during this session have been explained. Axel's location/environment was surveyed by this provider to identify all participants and the Virtual Medical Room was locked (via enabling button option in VMR) once all invited/required attendees were present. Axel identified with 2 identifiers: [X] Patient Name [X] Visual recognition Procedure: The patient was seen for a 55-minute [facility] individual psychotherapy session The Outpatient Individual Psychotherapy Services Agreement was reviewed on 02/15/24. Agreed to meet for 8 weekly to twice monthly individual therapy appointments utilizing aspects of Acceptance and Committment Therapy. Problem: Difficulty managing distressing thoughts and feelings related to stressors and deaths of loved ones Objectives: [place] will engage in individual, weekly psychotherapy to increase his ability to tolerate distressing emotional experiences and to engage in behaviors that are consistent with his values. Progress: Axel spoke about use of defusion word repetition practice and acceptance since last session, reflecting upon the benefit of shifting his expectations of winter. He considered his upcoming schedule and worry thoughts about a work request for involvement in 10 IEP meetings in one month with 5 in one week. explored ways to see the context, to envision adaptive coping rather than doom and gloom, and to ask for some schedule modification to better accomodate legitimate needs. [place] considered the value of asking for slightly more than he expects to receive in order to find a workable compromise and balance. [place] engaged in a mindful awareness practice related to reflecting upon his values and envisioning himself communicating effectively about his needs. [place] committed to utilize these strategies between now [...] emergency resources through this [facility] and the [employer] Crisis Line number. Thus, current assessment of risk for suicide and homicide is low. DSM 5 Diagnostic Impressions Per Chart: Major Depressive Disorder, mild Plan: 's next visit is scheduled for March at 3pm via VVC. He requested to receive [facility] measures via text message on at 11am prior to next appointment. /jonathan/ Rober Rivera, PhD Clinical Psychologist, Mental Health Clinic Signed: 02/29/2024 16:04 ROBER RIVERA [place] [facility]
--- OUTSIDE RECORDS SUMMARY | 2024-08-01 17:36 | XMS_ITS | Encounter Summary ---
Author Name [facility] [place] Address [address] [place] [address] Care Team Providers Care [employer] Name Role Phone CEDRIC CLARK Primary Care [...] Name Patient's Relationship to Policy Brooks [facility] ION [facility] L DEPT Dec 04, 2023 [id number] [phone] [id number] [phone] FR SARBJIT HAYES PATIENT Selected Encounter This section includes the information on record at [place] for the Encounter. Date/Time Encounter Type Encounter Description Reason Provider Source Apr 18, 2024 03:00 PM PSYTX W PT 45 MINUTES [facility] - IND ICD-10-CM F33.8 Other recurrent depressive disorders KRANTHI RIVERA Encounter Template Text not used by [place] Assessments - Encounter Diagnoses This section includes the primary and secondary diagnoses documented for the Encounter. Date/Time Primary/Secondary Diagnosis Diagnosis Name Provider Source Apr 18, 2024 04:02 PM PRIMARY Other recurrent depressive disorders KRANTHI RIVERA [facility] Plan of Treatment: Future Appointments (+ 6 months) and Future Tests (+/- 45 days) The Plan of Treatment section includes future care activities for the patient from [facility] [place] [facility]. This section includes future appointments and future orders which are active, pending or scheduled. Future Appointments This section includes appointments that were scheduled to occur 6 months from the date of the Encounter, up to a maximum of 20 appointments. The data comes from all [place] treatment facilities. Appointment Date/Time Appointment Type Appointme nt Facility Name May 01, 2024 03:00 PM AMBULATORY - [place]ATRY [place] [facility] [place] [facility] May 08, 2024 10:00 AM AMBULATORY - [place]ICINE [place] [facility] [place] [facility] May 16, 2024 03:00 PM AM[place]ULATORY [place] [facility] [place] [facility] Jul 18, 2024 03:00 PM AM[place]ULATORY [place] [facility] [place] [facility] Jul 24, 2024 10:30 AM AMBULATORY [place] [facility] [place] [facility] Aug 01, 2024 03:00 PM AMBULATORY [place] [facility] [place] [facility] Aug 16, 2024 03:00 PM AMBULATORY - MEDICINE [facility] [place] [facility] Social History: Smoking Status (Most current) and Tobacco Use (All prior to encounter date) This section includes the most current, and the historical, smoking and tobacco- related health factors from the [place] facility where the Encounter took place. Current Smoking Status This section includes the most current smoking, or tobacco-related health factor, from the [place] facility where the Encounter took place. Date/Time Current Smoking Status Comment Facil ity Aug 11, 2023 03:00 PM [facility] Tobacco Use History This section includes a history of the smoking, or tobacco-related health factors, that were collected on or before the date of the Encounter. The data comes from the [place] facility where the Encounter took place. Date/Time Smoking Status/Tobacco Use Comment F acility Aug 12, 2022 03:30 PM [facility] Aug 12, 2021 03:30 PM [facility] Aug 03, 2020 03:00 PM VA-TOBACCO NEVER USED [facility] Encounter Notes: All associated encounter notes This section contains the clinical notes associated to the Encounter. Date/Time Encounter Note(s) Provider Source Apr 18, 2024 03:20 PM TELEHEALTH NOTE: LOCAL TITLE: [facility] PSYCHOLOGY NOTE STANDARD TITLE: TELEHEALTH NOTE DATE OF NOTE: APR 18, 2024@15:20 ENTRY DATE: APR 18, 2024@15:20:18 AUTHOR: ROBER RIVERAIGNER: URGENCY: STATUS: COMPLETED BHIP Individual Therapy Note (VVC) [place] [facility] (clinic to non-VA location) 's location: Provider confirmed that is currently located at Primary Address listed in [place] [facility] consult and verified the contact phone number has provided verbal consent either today or previously when seen via [facility] in mental health. This consent was obtained [...] Procedure: The was seen for a 50-minute [facility] individual psychotherapy session The Outpatient Individual Psychotherapy Services Agreement was reviewed on 02/15/24. Agreed to meet for 8 weekly to twice monthly individual therapy appointments utilizing aspects of Acceptance and Committment Therapy. Problem: Difficulty managing distressing thoughts and feelings related to stressors and deaths of loved ones Objectives: [place] will engage in individual, weekly psychotherapy to increase his ability to tolerate distressing emotional experiences and to engage in behaviors that are consistent with his values. Progress: [place] engaged in a mindful awareness practice incorporating small physical tapping and shaking movements. discussed his experiences responding to the change in winter weather, coping with stressful experiences at work, negotiating conversations about the potential of having a child with his partner, and experiencing distressing feelings and thoughts related to the election results. reflected upon feelings of helplessness and homelessness. 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 He committed to consider further and implement the ideas he identified today. Assessment: [place] arrived on time and was dressed appropriately with appropriate hygiene. He maintained appropriate eye contact and was alert. spoke clearly and coherently. His thoughts were linear and related. His affect was congruent to content and appropriate in range. There was no evidence of AH/VH or delusions. There was no evidence of SI or HI. [place] was future oriented, clearly invested in improving the quality of his life. He reported a history of passive, fleeting suicidal ideation without lifetime intent, plan, or behavior. [place] was reminded of emergency resources through this [facility] and the [employer] Crisis Line number. Thus, current assessment of risk for suicide and homicide is low. DSM 5 Diagnostic Impressions Per Chart: Major Depressive Disorder, mild Plan: 's next visit is scheduled for Monday, May 01, 2024 at 3pm via [facility]. He requested to receive [facility] measures via text message. /jonathan/ Rober Rivera, PhD Clinical Psychologist, Mental Health Clinic Signed: 04/18/2024 16:02 ROBER RIVERA [place] [facility] [place] [facility] Apr 11, 2024 02:14 PM MENTAL HEALTH DIAG NOSTIC STUDY NOTE: LOCAL TITLE: MENTAL HEALTH DIAGNOSTIC STUDY STANDARD TITLE: MENTAL HEALTH DIAGNOSTIC STUDY NOTE DATE OF NOTE: APR 11, 2024@14:14:22 ENTRY DATE: APR 11, 2024@14:14:22 AUTHOR: ROBER RIVERA EXP COSIGNER: URGENCY: STATUS: COMPLETED MENTAL HEALTH DIAGNOSTIC STUDY Has ADDENDA Assessments were sent to the [place] via text/email. These assessments were completed by TRACY HAYES on their own device on 04/11/2024 1:38:31 PM. PATIENT HEALTH QUESTIONNAIRE-9 (PHQ-9) The patient reported symptoms consistent with a major depressive episode. Patient reported being bothered by the following over the last 2 weeks: 1. Little interest or pleasure: Several Days 2. Feeling down, depressed or hopeless: More than half the days 3. Trouble sleeping: Nearly every day 4. Tired, low energy: More than half the days 5. Poor appetite, over-eating: More than half the days 6. Feelings of failure, guilt: Several Days 7. Trouble concentrating: Several Days 8. Motor retardation, agitation: Several Days 9. Thoughts better off /hurting self: Several Days PHQ-9 total score = 14 1-4 = minimal symptoms 5-9= mild symptoms 10-14= moderate symptoms 15-19= moderately severe symptoms 20-27= severe depressive symptoms The patient stated that the depressive symptoms made it very difficult to work, take care of things at home, or get along with others. PHQ-9 Total Score (past 180 days): 04/11/2024 14 03/01/2024 11 02/15/2024 6 02/01/2024 11 01/18/2024 9 01/11/2024 7 01/04/2024 9 12/21/2023 6 12/01/2023 4 11/16/2023 4 10/19/2023 7 THE ACCEPTANCE AND ACTION QUESTIONNAIRE-II (AAQ-II) The [...] live my life: Seldom true Total Score: 41 Scores range from 10 to 70 with higher scores indicating greater psychological flexibility. AAQ-II Total Score (past 180 days): 04/11/2024 41 03/01/2024 47 02/15/2024 50 01/18/2024 40 01/11/2024 54 12/21/2023 45 12/01/2023 47 11/16/2023 52 10/19/2023 50 /es/ Rober Rivera, PhD Clinical Psychologist, Mental Health Clinic Signed: 04/12/2024 14:58 04/12/2024 ADDENDUM STATUS: COMPLETED was previously informed that responses are not reviewed in real time. was provided with [place] Crisis Line information and instructed to call 911 or go to nearest ER if experiencing urgent or life threatening issue. has previously raised no questions/conscerns and indicated willingness to outreach for help via phone or in person if needed. /jonathan/ Rober Rivera, PhD Clinical Psychologist, Mental Health Clinic Signed: 04/12/2024 16:20 [facility]
--- OUTSIDE RECORDS SUMMARY | 2024-08-01 17:36 | XMS_ITS | Encounter Summary ---
Author Name [facility] [place] Address [address] [place] [address] Care Team Providers Care Derrick Operator Name Role Phone CEDRIC CLARK Primary [...] Policy Brooks [facility] SCH L DEPT Dec 04, 2023 [id number] [phone] FR SARBJIT HAYES PATIENT Selected Encounter This section includes the information on record at [place] for the Encounter. Date/Time Encounter Type Encounter Description Reason Provider Source Sep 19, 2023 01:00 PM PSYTX W PT 45 MINUTES [facility]ENTAL [facility] CLINIC - IND ICD-10-CM F33.8 Other recurrent depressive disorders KRNATHI RIVERA Encounter Template Text not used by [place] Assessments - Encounter Diagnoses This section includes the primary and secondary diagnoses documented for the Encounter. Date/Time Primary/Secondary Diagnosis Diagnosis Name Provider Source Sep 19, 2023 02:05 PM PRIMARY Other recurrent depressive disorders KRANTHI RIVERA [facility] [place] [facility] Plan of Treatment: Future Appointments (+ 6 months) and Future Tests (+/- 45 days) The Plan of Treatment section includes future care activities for the patient from all [place] [facility]. This section includes future appointments and future orders which are active, pending or scheduled. Future Appointments This section includes appointments that were scheduled to occur 6 months from the date of the Encounter, up to a maximum of 20 appointments. The data comes from all [place] treatment facilities. Appointment Date/Time Appointment Type Appointme nt Facility Name October 12, 2023 03:00 PM AMBULATORY - [place]IATRY [place] [facility] [place] [facility] October 19, 2023 03:00 PM AMBULATORY - PS[place]CHIATRY [facility] [place] [facility] October 26, 2023 03:00 PM AMBULATORY - PS[facility]CHIATRY [facility] [place] [facility] Nov 16, 2023 03:00 PM AMBULATORY - PS[facility]CHIATRY [facility] [place] [facility] Nov 23, 2023 03:00 PM AMBULATORY - PS[facility]CHIATRY [facility] [place] [facility] Nov 30, 2023 03:00 PM AMBULATORY - PS[facility]CHIATRY [facility] [place] [facility] Dec 14, 2023 03:00 PM AMBULATORY - PSYCHIATRY [facility] [place] [facility] Dec 21, 2023 03:00 PM AMBULATORY - PS[facility]CHIATRY [facility] [place] [facility] Jan 04, 2024 02:00 PM AMBULATORY - PSYCHIATRY [facility] [place] [facility] Jan 11, 2024 02:00 PM AMBULATORY - PSYCHIATRY [facility] [place] [facility] Jan 18, 2024 02:00 PM AMBULATORY - PSYCHIATRY [facility] [place] [facility] Feb 01, 2024 03:00 PM AMBULATORY - PSYCHIATRY [facility] [place] [facility] Feb 15, 2024 03:00 PM AMBULATORY - PSYCHIATRY [facility] [place] [facility] Feb 16, 2024 03:00 PM AMBULATORY - MEDICINE [facility] [place] [facility] Feb 29, 2024 03:00 PM AMBULATORY - PSYCHIATRY [facility] [place] [facility] Mar 12, 2024 01:00 PM AMBULATORY - MEDICINE [facility] [place] [facility] Mar 14, 2024 03:00 PM [facility] Social History: Smoking Status (Most current) and Tobacco Use (All prior to encounter date) This section includes the most current, and the historical, smoking and tobacco- related health factors from the [place] facility where the Encounter took place. Current Smoking Status This section includes the most current smoking, or tobacco-related health factor, from the [place] facility where the Encounter took place. Date/Time Current Smoking Status Comment Tato ity Aug 11, 2023 03:00 PM [facility]CO [facility] Tobacco Use History This section includes a history of the smoking, or tobacco-related health factors, that were collected on or before the date of the Encounter. The data comes from the [place] facility where the Encounter took place. Date/Time Smoking Status/Tobacco Use Comment F acjen Aug 12, 2022 03:30 PM VA-TOBACCO [place] [facility] Aug 12, 2021 03:30 PM VA-TOBACCO NEVER USED [place] [facility] Aug 03, 2020 03:00 PM VA-TOBACCO [facility] Encounter Notes: All associated encounter notes This section contains the clinical notes associated to the Encounter. Date/Time Encounter Note(s) Provider Source Sep 19, 2023 01:12 PM MENTAL HEALTH NOTE : LOCAL TITLE: ACT DEPRESSION THERAPY NOTE STANDARD TITLE: MENTAL HEALTH NOTE DATE OF NOTE: SEP 19, 2023@13:12 ENTRY DATE: SEP 19, 2023@13:12:27 AUTHOR: ROBER RIVERA EXP COSIGNER: URGENCY: STATUS: COMPLETED Outpatient Mental Health Clinic Individual Therapy Note (VVC) Acceptance and Commitment Therapy for Depression [place] [email or web address] Connect (clinic to non-VA location) 's location: Provider confirmed that is currently located at Primary Address listed in [place] [facility] consult and verified the contact phone number has provided verbal consent either today or previously when seen via VVC in mental health. This consent was obtained after a full explanation of the risk and benefits of using telehealth for mental health appointments. Alternatives for obtaining care through an in-person mental health visit and the [place]'s right of refusal at any time during this session have been explained. 's location/environment was surveyed by this provider to identify all participants and the Virtual Medical Room was locked (via enabling button option in VMR) once all invited/required attendees were present. [place] identified with 2 identifiers: [X] Patient Name [X] Visual recognition Procedure: The patient was seen for a 50-minute [facility] individual psychotherapy session The Outpatient Individual [...] with his values. Progress: Completed ACT-D session 1. See content below. Assessment: Axel arrived on time and was dressed appropriately with appropriate hygiene. He maintained appropriate eye contact and was alert. [place] spoke clearly and coherently. His thoughts were [...] was reminded of emergency resources through this [place] and the [facility] Crisis Line number. Thus, current assessment of risk for suicide and homicide is low. DSM 5 Diagnostic Impressions Per Chart: Major Depressive Disorder, mild Plan: 's next visit is scheduled for September at 1pm via [facility]. ~~~ Acceptance and Commitment Therapy (ACT) for Depression - Beginning Phase Time in session (in minutes): 60 SESSION NUMBER: 1 SESSION FORMAT Video Telehealth Session SESSION LOCATION Mental Health Clinic DIAGNOSIS: Primary (focus of treatment): Major Depressive Disorder, mild Session Content: In this beginning phase session of ACT for Depression, the following therapeutic activities were performed. Provided the [place] with an overview and rationale of ACT for depression, including what to expect over the course of the treatment, and the collaborative nature of the therapeutic relationship. The goals of ACT were explained in terms of learning and developing a new and different relationship to one's internal experiences (e.g., thoughts, emotions, sensations, memories), with the goal of creating psychological and behavioral flexibility in the service of personal values. The following interventions/metaphors were used to assist the in understanding the treatment philosophy and process of ACT for depression: Roller Coaster Metaphor [place] Metaphor ACT - Accept, Choose, Take Action The [place] had the following response to this rationale: expressing understanding and exploring his understanding thus far, expressing curiosity about deepening his understanding of how to care for himself, including honoring the life of his sister and managing while his mother is in the ICU. Additional session information: engaged in a mindful awareness practice including reflecting on the life of his sister given the anniversary of her yesterday PLAN Next session planned for agreed upon date/time of: September at 3pm via [place] /jonathan/ Rober Rivera, PhD Clinical Psychologist, Mental Health Clinic Signed: 09/19/2023 14:05 ROBER RIVERA [place] [facility]
--- OUTSIDE RECORDS SUMMARY | 2024-08-01 17:36 | XMS_ITS | Encounter Summary ---
Author Name [facility] [place] [facility] [place] Organization [place] Address [address] [place] [address] Care Team Providers Care Drug Enforcement Administration Agent Name Role Phone CEDRIC CLARK Primary Care [...] Brooks [facility]GAN[facility] ION [facility] DEPT Dec 04, 2023 [id number] [phone] [id number] [phone] FR SARBJIT HAYES PATIENT Selected Encounter This section includes the information on record at [place] for the Encounter. Date/Time Encounter Type Encounter Description Reason Provider Source Nov 23, 2023 03:00 PM PSYTX W PT 45 MINUTES [facility] - IND ICD-10-CM F33.8 Other recurrent depressive disorders KRANTHI RIVERA Encounter Template Text not used by [place] Assessments - Encounter Diagnoses This section includes the primary and secondary diagnoses documented for the Encounter. Date/Time Primary/Secondary Diagnosis Diagnosis Name Provider Source Nov 23, 2023 04:11 PM PRIMARY Other recurrent depressive disorders KRANTHI RIVERA [place] [facility] [place] [facility] Plan of Treatment: Future Appointments (+ 6 months) and Future Tests (+/- 45 days) The Plan of Treatment section includes future care activities for the patient from [facility] [place] [facility] This section includes future appointments and future orders which are active, pending or scheduled. Future Appointments This section includes appointments that were scheduled to occur 6 months from the date of the Encounter, up to a maximum of 20 appointments. The data comes from all [place] treatment facilities. Appointment Date/Time Appointment Type Appointme nt Facility Name Nov 30, 2023 03:00 PM AMBULATORY [facility]ATRY [facility] [place] [facility] Dec 14, 2023 03:00 PM AMBULATORY - PS[facility]CHIATRY [facility] [place] [facility] Dec 21, 2023 03:00 PM AMBULATORY - PS[facility]CHIATRY [facility] [place] [facility] Jan 04, 2024 02:00 PM AMBULATORY - PS[facility]CHIATRY [facility] [place] [facility] Jan 11, 2024 02:00 PM AMBULATORY - PS[facility]CHIATRY [facility] [place] [facility] Jan 18, 2024 02:00 PM AMBULATORY - PS[facility]CHIATRY [facility] [place] [facility] Feb 01, 2024 03:00 PM AMBULATORY - PS[facility]CHIATRY [facility] [place] [facility] Feb 15, 2024 03:00 PM AMBULATORY - PS[facility]CHIATRY [facility] [place] [facility] Feb 16, 2024 03:00 PM AMBULATORY - MEDICINE [facility] [place] [facility] Feb 29, 2024 03:00 PM AMBULATORY - PS[facility]CHIATRY [facility] [place] [facility] Mar 12, 2024 01:00 PM AMBULATORY - MEDICINE [facility] [place] [facility] Mar 14, 2024 03:00 PM AMBULATORY - PS[facility]CHIATRY [facility] [place] [facility] Mar 28, 2024 03:00 PM AMBULATORY - PS[facility]CHIATRY [facility] [place] [facility] Apr 18, 2024 03:00 PM AMBULATORY - PS[facility]CHIATRY [facility] [place] [facility] May 01, 2024 03:00 PM AMBULATORY - PSYCHIATRY [facility] [place] [facility] May 08, 2024 10:00 AM AMBULATORY [facility] MEDICINE [facility] [place] [facility] May 16, 2024 03:00 [facility] Social History: Smoking Status (Most current) and Tobacco Use (All prior to encounter date) This section includes the most current, and the historical, smoking and tobacco- related health factors from the [place] facility where the Encounter took place. Current Smoking Status This section includes the most current smoking, or tobacco-related health factor, from the [place] facility where the Encounter took place. Date/Time Current Smoking Status Comment Tato alvarezy Aug 11, 2023 03:00 PM [facility] Tobacco Use History This section includes a history of the smoking, or tobacco-related health factors, that were collected on or before the date of the Encounter. The data comes from the [place] facility where the Encounter took place. Date/Time Smoking Status/Tobacco Use Comment F acjen Aug 12, 2022 03:30 PM VA-TOBACCO NEVER USED [place] [facility] [place] [facility] Aug 12, 2021 03:30 PM VA-TOBACCO NEVER USED [place] [facility] [place] [facility] Aug 03, 2020 03:00 PM [facility] Encounter Notes: All associated encounter notes This section contains the clinical notes associated to the Encounter. Date/Time Encounter Note(s) Provider Source Nov 23, 2023 03:15 PM MENTAL HEALTH NOTE : LOCAL TITLE: ACT DEPRESSION THERAPY NOTE STANDARD TITLE: MENTAL HEALTH NOTE DATE OF NOTE: NOV 23, 2023@15:15 ENTRY DATE: NOV 23, 2023@15:15:17 AUTHOR: ROBER RIVERA EXP COSIGNER: URGENCY: STATUS: COMPLETED Outpatient Mental Health Clinic Individual Therapy Note (VVC) Acceptance and Commitment Therapy for Depression [place] [facility] (clinic to non-[facility] location) [place]'s location: Provider confirmed that [place] is currently located at Primary Address listed in [place] [facility] consult and verified the contact [...] time during this session have been explained. [place]'s location/environment was surveyed by this provider to identify all participants and the Virtual Medical Room was locked (via enabling button option in VMR) once all invited/required attendees were present. Axel identified with 2 identifiers: [X] Patient Name [X] Visual recognition Procedure: The patient was seen for a 50-minute [facility] individual psychotherapy session The Outpatient Individual Psychotherapy Services Agreement was reviewed on 09/14/23. Agreed to meet for 12 weekly to twice monthly individual therapy appointments utilizing Acceptance and Committment Therapy for Depression (ACT-D). Problem: Difficulty managing distressing thoughts and feelings related to stressors and deaths of loved ones Objectives: [place] will engage in individual, weekly psychotherapy to increase his ability to tolerate distressing emotional experiences and to engage in behaviors that are consistent with his values. Progress: Completed ACT-D session 6. See content below. Assessment: Axel arrived on [...] was reminded of emergency resources through this [place] and the [facility] Crisis [facility] number. Thus, current assessment of risk for suicide and homicide is low. DSM 5 Diagnostic Impressions Per Chart: Major Depressive Disorder, mild Plan: 's next visit is scheduled for November at 3pm via [facility]. ~~~ ACT for Depression - Action Phase Time in session (in minutes): 50 SESSION NUMBER: 6 SESSION FORMAT Video Telehealth Session SESSION LOCATION Mental Health Clinic DIAGNOSIS: Primary (focus of treatment): Major Depressive Disorder, mild ASSESSMENT Date Instrument Raw Trans Scale 11/16/2023 16:11 PHQ9 4 PHQ9 10/19/2023 16:12 PHQ9 7 PHQ9 09/14/2023 13:50 PHQ9 4 PHQ9 Treatment objectives for this action phase session of Acceptance and Commitment Therapy (ACT) for depression included: willingness, building acceptance, defusing language The following Core Processes were facilitated in this session: Defusion exercises employed in this session include: Lemon or [id number]-[id number] Exercise Other Exercise saliva The discussion with the related to Defusion included: Reflection on his relationship to the word idiot. Interest in using several defusion approaches discussed, including repetitive, fast use of upsetting language, humor, and labelling thought process. Contact with the Present moment and mindfulness exercises employed in this session include: Breathing Exercises Homework/Practice Assignment: use mindful awareness, notice language choices, utilize defusion strategies PLAN Next session planned for agreed upon date/time of: November at 3pm via VVC /jonathan/ Rober Rivera, PhD Clinical Psychologist, Mental Health Clinic Signed: 11/23/2023 16:11 ROBER RIVERA [place] [facility]
--- OUTSIDE RECORDS SUMMARY | 2024-08-01 17:36 | XMS_ITS | Encounter Summary ---
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 Date/Time Encounter Type Encounter Description Reason Provider Source May 01, 2024 03:00 PM PSYTX W PT 45 MINUTES [facility] - IND ICD-10-CM F33.8 Other recurrent depressive disorders KRANTHI RIVERA Encounter Template Text not used by [place] Assessments - Encounter Diagnoses This section includes the primary and secondary diagnoses documented for the Encounter. Date/Time Primary/Secondary Diagnosis Diagnosis Name Provider Source May 01, 2024 03:54 PM PRIMARY Other recurrent depressive disorders KRANTHI RIVERA [place] [facility] Plan of Treatment: Future Appointments (+ 6 months) and Future Tests (+/- 45 days) The Plan of Treatment section includes future care activities for the patient [facility] [place] [facility]. This section includes future appointments and future orders which are active, pending or scheduled. Future Appointments This section includes appointments that were scheduled to occur 6 months from the date of the Encounter, up to a maximum of 20 appointments. The data comes from all [place] treatment facilities. Appointment Date/Time Appointment Type Appointme nt Facility Name May 08, 2024 10:00 AM AMBULATORY - MEDICINE [place] [facility] [place] [facility] May 16, 2024 03:00 PM AMBULATORY - PSYCHIATRY [facility] [place] [facility] Jul 18, 2024 03:00 PM AMBULATORY PSYCHIATRY [facility] [place] [facility] Jul 24, 2024 10:30 AM AMBULATORY - PSYCHIATRY [facility] [place] [facility] Aug 01, 2024 03:00 PM AMBULATORY - PSYCHIATRY [facility] [place] [facility] Aug 16, 2024 03:00 PM AMBULATORY - MEDICINE [place] [facility] [facility] Social History: Smoking Status (Most current) and Tobacco Use (All prior to encounter date) This section includes the most current, and the historical, smoking and tobacco- related health factors from the [place] facility where the Encounter took place. Current Smoking Status This section includes the most current smoking, or tobacco-related health factor, from the [place] facility where the Encounter took place. Date/Time Current Smoking Status Comment Tato ity Aug 11, 2023 03:00 PM [facility] Tobacco Use History This section includes a history of the smoking, or tobacco-related health factors, that were collected on or before the date of the Encounter. The data comes from the [place] facility where the Encounter took place. Date/Time Smoking Status/Tobacco Use Comment F acility Aug 12, 2022 03:30 PM VA-TOBACCO NEVER USED [place] [facility] [place] [facility] Aug 12, 2021 03:30 PM VA-TOBACCO NEVER USED [place] [facility] [place] [facility] Aug 03, 2020 03:00 PM [facility]CO [facility] Encounter Notes: All associated encounter notes This section contains the clinical notes associated to the Encounter. Date/Time Encounter Note(s) Provider Source May 01, 2024 03:38 PM TELEHEALTH NOTE: LOCAL TITLE: [facility] PSYCHOLOGY NOTE STANDARD TITLE: TELEHEALTH NOTE DATE OF NOTE: MAY 01, 2024@15:38 ENTRY DATE: MAY 01, 2024@15:38:12 AUTHOR: ROBER RIVERA COSIGNER: URGENCY: STATUS: COMPLETED IP Individual Therapy Note (VVC) [place] [facility] (clinic to non-[facility] location) 's location: Provider confirmed that is currently located at Primary Address listed in [place] [facility] consult and verified the contact phone number [place] has provided verbal consent either today or [...] VMR) once all invited/required attendees were present. [place] identified with 2 identifiers: [X] Patient Name [X] Visual recognition Procedure: The was seen for a 50-minute [facility] individual psychotherapy session The Outpatient Individual Psychotherapy Services Agreement was reviewed on 02/15/24. Agreed to meet for 8 weekly to twice monthly individual therapy appointments utilizing aspects of Acceptance and Committment Therapy. Problem: Difficulty managing distressing thoughts and feelings related to stressors and deaths of loved ones Objectives: [place] will engage in individual, weekly psychotherapy to increase his ability to tolerate distressing emotional experiences and to engage in behaviors that are consistent with his values. Progress: [place] engaged in a mindful awareness practice incorporating mindful breathing and listening to the poem The Invitation by Jermaine Ospina. 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 [place] considered how he wants to relate to himself with compassion and how he wants to have choices about actions that will shift his focus away from unhelpful thoughts. wrote down a list of options and committed to using some of these ideas that he identified today. Assessment: [place] arrived on time and was dressed appropriately with appropriate hygiene. He maintained appropriate eye contact and was alert. [place] spoke clearly and coherently. His thoughts were linear and related. His affect was congruent to content and appropriate in range. There was no evidence of AH/VH or delusions. There was no evidence of SI or HI. [place] was future oriented, clearly invested in improving the quality of his life. He reported a history of passive, fleeting suicidal ideation without lifetime intent, plan, or behavior. Axel was reminded of emergency resources through this [facility] and the [employer] Crisis Line number. Thus, current assessment of risk for suicide and homicide is low. DSM 5 Diagnostic Impressions Per Chart: Major Depressive Disorder, mild Plan: [place]'s next visit is scheduled for May at 3pm via [facility]. He requested to receive [facility] measures via text message. /jonathan/ Rober Rivera, PhD Clinical Psychologist, Mental Health Clinic Signed: 05/01/2024 15:54 ROBER RIVERA [place] [facility]
--- OUTSIDE RECORDS SUMMARY | 2024-08-01 17:36 | XMS_ITS | Encounter Summary ---
Author Name [facility] [place] [facility] [place] Address [address] [place] [address] Care Team Providers Care Parenting Skills Instructor Name Role Phone CEDRIC CLARK Primary [...] Brooks's Name Patient's Relationship to Policy Brooks [facility] SCH L DEPT Dec 04, 2023 [phone] [id number] [phone] FR SARBJIT HAYES PATIENT Selected Encounter This section includes the information on record at [place] for the Encounter. Date/Time Encounter Type Encounter Description Reason Provider Source Dec 14, 2023 03:00 PM PSYTX W PT 60 MINUTES [facility] - IND ICD-10-CM F33.8 Other recurrent depressive disorders KRANTHI RIVERA Rick Encounter Template Text not used by [place] Assessments - Encounter Diagnoses This section includes the primary and secondary diagnoses documented for the Encounter. Date/Time Primary/Secondary Diagnosis Diagnosis Name Provider Source Dec 14, 2023 03:49 PM PRIMARY Other recurrent depressive disorders KRANTHI RIVERA [place] [facility] [place] [facility] Plan of Treatment: Future Appointments (+ 6 months) and Future Tests (+/- 45 days) The Plan of Treatment section includes future care activities for the patient from [facility] [place] [facility] This section includes future appointments and future orders which are active, pending or scheduled. Future Appointments This section includes appointments that were scheduled to occur 6 months from the date of the Encounter, up to a maximum of 20 appointments. The data comes from all [place] treatment facilities. Appointment Date/Time Appointment Type Appointme nt Facility Name Dec 21, 2023 03:00 PM AMBULATORY - PS[facility]IATRY [facility] [place] [facility] Jan 04, 2024 02:00 PM AMBULATORY - PS[facility]CHIATRY [facility] [place] [facility] Jan 11, 2024 02:00 PM AMBULATORY - PS[facility]CHIATRY [facility] [place] [facility] Jan 18, 2024 02:00 PM AMBULATORY - PS[facility]CHIATRY [facility] [place] [facility] Feb 01, 2024 03:00 PM AMBULATORY - PS[facility]CHIATRY [facility] [place] [facility] Feb 15, 2024 03:00 PM AMBULATORY - PS[facility]CHIATRY [facility] [place] [facility] Feb 16, 2024 03:00 PM AMBULATORY - MEDICINE [place] [facility] [place] [facility] Feb 29, 2024 03:00 PM AMBULATORY - PS[facility]CHIATRY [facility] [place] [facility] Mar 12, 2024 01:00 PM AMBULATORY - MEDICINE [facility] [place] [facility] Mar 14, 2024 03:00 PM AMBULATORY - PSYCHIATRY [facility] [place] [facility] Mar 28, 2024 03:00 PM AMBULATORY - PS[facility]CHIATRY [facility] [place] [facility] Apr 18, 2024 03:00 PM AMBULATORY - PSYCHIATRY [facility] [place] [facility] May 01, 2024 03:00 PM AMBULATORY - PS[facility]CHIATRY [facility] [place] [facility] May 08, 2024 10:00 AM AMBULATORY - MEDICINE [place] [facility] [place] [facility] May 16, 2024 03:00 PM AMBULATORY - PS[facility]CHIATRY [facility] [place] [facility] Social History: Smoking Status (Most current) and Tobacco Use (All prior to encounter date) This section includes the most current, and the historical, smoking and tobacco- related health factors from the [place] facility where the Encounter took place. Current Smoking Status This section includes the most current smoking, or tobacco-related health factor, from the [place] facility where the Encounter took place. Date/Time Current Smoking Status Comment Tato osullivan Aug 11, 2023 03:00 PM VA[facility]TOBACCO NEVER USED [place] [facility] Tobacco Use History This section includes a history of the smoking, or tobacco-related health factors, that were collected on or before the date of the Encounter. The data comes from the [place] facility where the Encounter took place. Date/Time Smoking Status/Tobacco Use Comment F acility Aug 12, 2022 03:30 PM VA-TOBACCO NEVER USED [facility] [place] [facility] Aug 12, 2021 03:30 PM VA-TOBACCO NEVER USED [facility] [place] [facility] Aug 03, 2020 03:00 PM VA-TOBACCO NEVER USED [place] [facility] [place] [facility] Encounter Notes: All associated encounter notes This section contains the clinical notes associated to the Encounter. Date/Time Encounter Note(s) Provider Source Dec 14, 2023 03:27 PM MENTAL HEALTH NOTE : LOCAL TITLE: ACT DEPRESSION THERAPY NOTE STANDARD TITLE: MENTAL HEALTH NOTE DATE OF NOTE: DEC 14, 2023@15:27 ENTRY DATE: DEC 14, 2023@15:27:18 AUTHOR: ROBER RIVERA EXP COSIGNER: URGENCY: STATUS: COMPLETED Outpatient Mental Health Clinic Individual Therapy Note (VVC) Acceptance and Commitment Therapy for Depression [place] [facility] ([facility] location) [place]'s location: Provider confirmed that is currently located at Primary Address listed in [place] [facility] consult and verified the contact [...] VMR) once all invited/required attendees were present. Sterling identified with 2 identifiers: [X] Patient Name [X] Visual recognition Procedure: The patient was seen for a 55-minute [facility] individual psychotherapy session The Outpatient Individual Psychotherapy Services Agreement was reviewed on 09/14/23. Agreed to meet for 12 weekly to twice monthly individual therapy appointments utilizing Acceptance and Committment Therapy for Depression (ACT-D). Problem: Difficulty managing distressing thoughts and feelings related to stressors and deaths of loved ones Objectives: Sterling will engage in individual, weekly psychotherapy to increase his ability to tolerate distressing emotional experiences and to engage in behaviors that are consistent with his values. Progress: Completed ACT-D session 8. See content below. Assessment: Axel arrived on [...] Plan: Axel's next visit is scheduled for December at 3pm via [facility]. ~~~ ACT for Depression - Action Phase Time in session (in minutes): 55 SESSION NUMBER: 8 SESSION FORMAT Video Telehealth Session SESSION LOCATION Mental Health Clinic DIAGNOSIS: Primary (focus of treatment): Major Depressive Disorder, mild ASSESSMENT Date Instrument Raw Trans Scale 12/01/2023 16:06 PHQ9 4 PHQ9 11/16/2023 16:11 PHQ9 4 PHQ9 10/19/2023 16:12 PHQ9 7 PHQ9 09/14/2023 13:50 PHQ9 4 PHQ9 Treatment objectives for this action phase session of Acceptance and Commitment Therapy (ACT) for depression included: self as context part 2 The following Core Processes were facilitated in this session: Contact with the Present moment and mindfulness exercises employed in this session include: Breathing Exercises [id number] exercises employed in this session: Physicalizing Exercise The discussion with the related to [id number] included: Considering ways to relate differently to anger as well as other distressing emotions. Connecting this to personal values. Homework/Practice Assignment: mindful awareness practice, practice of physicalizing and relating differently to emotions PLAN Next session planned for agreed upon date/time of: December at 3pm via VVC /es/ Rober Rivera, PhD Clinical Psychologist, Mental Health Clinic Signed: 12/14/2023 16:00 ROBER RIVERA [place] [facility] [place] [facility] Dec 11, 2023 10:10 AM MENTAL HEALTH DIAG NOSTIC STUDY NOTE: LOCAL TITLE: MENTAL HEALTH DIAGNOSTIC STUDY STANDARD TITLE: MENTAL HEALTH DIAGNOSTIC STUDY NOTE DATE OF NOTE: DEC 11, 2023@10:10:59 ENTRY DATE: DEC 11, 2023@10:10:59 AUTHOR: ROBER RIVERA EXP COSIGNER: URGENCY: STATUS: COMPLETED Assessments were sent to the via text/email. These assessments were completed by TRACY HAYES on their own device on 12/01/2023 4:06:30 PM. PATIENT HEALTH QUESTIONNAIRE-9 (PHQ-9) The patient [...] stated that the depressive symptoms made it not at all difficult to work, take care of things at home, or get along with others. PHQ-9 Total Score (past 180 days): 12/01/2023 4 11/16/2023 4 10/19/2023 7 09/14/2023 [...] to accomplish the changes that I want: Always 11. My therapist and I have established a good understanding of the kind of changes that would be good for me: Very Often 12. I believe the way we are working with my problem is correct: Always Goal Score: 17 Task Score: 17 Farias Score: 17 Goal, Task, and Farias scores range from 4-20. Higher scores indicate better working alliance. AMBER-SR Task Score (past 180 days): 12/01/2023 17 10/19/2023 16 09/14/2023 16 AMBER-SR Farias Score (past 180 days): 12/01/2023 17 10/19/2023 17 09/14/2023 17 AMBER-SR Goal Score (past 180 days): 12/01/2023 17 10/19/2023 18 09/14/2023 16 THE ACCEPTANCE AND [...] live my life: Seldom true Total Score: 47 Scores range from 10 to 70 with higher scores indicating greater psychological flexibility. AAQ-II Total Score (past 180 days): 12/01/2023 47 11/16/2023 52 10/19/2023 50 09/14/2023 43 FIVE FACET MINDFULNESS QUESTIONNAIRE (FFMQ) The patient rated each statement below as follows: 1. When I'm walking, I deliberately notice the sensations of my body moving: Rarely true 2. I'm good at finding words [...] because I'm daydreaming, worrying, or otherwise distracted: Rarely true 9. I watch my feelings without [...] Sometimes true 13. I am easily distracted: Sometimes [...] just notice them and let them go: Sometimes true 34. I do jobs or tasks automatically without being aware of what I'm doing: Sometimes true 35. When I have distressing thoughts or images, I rigging worker myself as good or bad, depending what [...] ideas: Often true Total Score (range: 39-195): 110 Observing (8-40): 24 Describing (8-40): 23 Acting with Awareness (8-40): 25 Nonjudging of inner experience (8-40): 19 Nonreactivity to inner experience (7-35): 19 Higher scores indicate a greater capacity for mindfulness. FFMQ Total Score (past 180 days): 12/01/2023 110 09/14/2023 105 09/14/2023 102 FFMQ Observing (past 180 days): 12/01/2023 24 09/14/2023 25 09/14/2023 22 FFMQ Describing (past 180 days): 12/01/2023 23 09/14/2023 21 FFMQ Acting with Awareness (past 180 days): 12/01/2023 25 09/14/2023 24 FFMQ Nonjudging of inner experience (past 180 days): 12/01/2023 19 09/14/2023 18 FFMQ Nonreactivity to inner experience (past 180 days): 12/01/2023 19 09/14/2023 17 /jonathan/ Rober Rivera, PhD Clinical Psychologist, Mental Health Clinic Signed: 12/11/2023 16:07 ROBER RIVERA [facility]
--- OUTSIDE RECORDS SUMMARY | 2024-08-01 17:36 | XMS_ITS ---
Author Name [facility] [place] [facility] [place] Address [address] [place] [address] Care Team Providers Care Weatherization Operations Manager Name Role Phone CEDRIC SHEPHERD Primary Care [...] Brooks's Name Patient's Relationship to Policy Brooks [facility] DEPT Dec 04, 2023 [id number] [phone] [id number] [phone] FR SARBJIT LARA PATIENT Selected Encounter This section includes the information on record at [place] for the Encounter. Date/Time Encounter Type Encounter Description Reason Provider Source Aug 11, 2023 03:00 PM OFFICE O/P EST LOW 20 MIN PRIMARY CARE/MEDICINE ICD-10-CM Z15.01 Genetic susceptibility to malignant neoplasm of breast ASH SHEPHERD Rick Encounter Template Text not used by [place] Assessments - Encounter Diagnoses This section includes the primary and secondary diagnoses documented for the Encounter. Date/Time Primary/Secondary Diagnosis Diagnosis Name Provider Source Aug 22, 2023 03:42 PM PRIMARY Genetic susceptibility to malignant neoplasm of breast ASH SHEPHERD [place] [facility] [place] [facility] Aug 22, 2023 03:42 PM SECONDARY Abnormal results of liver function studies SHEPHERD,WILL RUBY J [place] [facility] [place] [facility] Aug 22, 2023 03:42 PM SECONDARY Essential (primary) hypertension SHEPHERD,WILL RUBY J [place] [facility] [place] [facility] Aug 22, 2023 03:42 PM SECONDARY Herpesviral infection of urogenital system, unspecified SHEPHERD,WILL RUBY J [place] [facility] [place] [facility] Aug 22, 2023 03:42 PM SECONDARY Hyperlipidemia, unspecified SHEPHERD,WILL RUBY J [place] [facility] [place] [facility] Plan of Treatment: Future Appointments (+ 6 months) and Future Tests (+/- 45 days) The Plan of Treatment section includes future care activities for the patient from all [place] treatmentfacilities. This section includes future appointments and future orders which are active, pending or scheduled. Future Appointments This section includes appointments that were scheduled to occur 6 months from the date of the Encounter, up to a maximum of 20 appointments. The data comes from all [place] treatment facilities. Appointment Date/Time Appointment Type Appointme nt Facility Name Aug 17, 2023 03:00 PM [facility] [place] [facility] Aug 24, 2023 03:00 PM AMBULATORY [facility] [place] [facility] Sep 14, 2023 03:00 PM AMBULATORY [facility] [place] [facility] Sep 19, 2023 01:00 PM AMBULATORY [facility] [place] [facility] October 12, 2023 03:00 PM AMBULATORY [facility] [place] [facility] October 19, 2023 03:00 PM AMBULATORY [facility] [place] [facility] October 26, 2023 03:00 PM AMBULATORY [facility] [place] [facility] Nov 16, 2023 03:00 PM AMBULATORY [facility] [place] [facility] Nov 23, 2023 03:00 PM AMBULATORY [facility] [place] [facility] Nov 30, 2023 03:00 PM AMBULATORY [facility] [place] [facility] Dec 14, 2023 03:00 PM [facility] [place] [facility] Dec 21, 2023 03:00 PM AMBULATORY [place]AT[place] [facility] [place] [facility] Jan 04, 2024 02:00 PM AMBULATORY [place]ATRY [place] [facility] [place] [facility] Jan 11, 2024 02:00 PM [facility] [place] [facility] Jan 18, 2024 02:00 PM [facility] Feb 01, 2024 03:00 PM [facility] Lab Results: +/- 30 days of the encounter This section includes the Chemistry and Hematology Lab Results on record with [place] for the patient. Radiology Reports and Pathology Reports are provided separately, in subsequent sections. Lab Results This section contains the Chemistry/Hematology Results that were resulted 30 days before or 30 daysafter the date of the Encounter. Date/Time Source Result Type Result - Unit Interpretation Reference Range Comment Aug 11, 2023 03:51 PM [facility] THYROID T4 FREE(FT4) Specimen Type: SERUM No comment entered. Ordering Provider: QUIRINO SHEPHERD AM Report Released Date/Time: Jul 27, 2023 03:16 PM Reporting Lab: [facility] [address] [facility] [address] Performing Lab: [facility] [address] [facility] [address] THYROID T4 FREE(FT4) 1.14 ng/dL 0.6-1.6 Aug 11, 2023 03:51 PM [facility] HEPATITIS B SURFACE ANTIGEN (HBsAg)-WH Specimen Type: SERUM Comment: A Reactive result ( Positive prior to 03/18/13) is diagnostic of acute or chronic hepatitis B infection. The presence of Hepatitis B surface antigen is frequently associated with infectivity. Ordering Provider: QUIRINO SHEPHERD AM Report Released Date/Time: Jul 27, 2023 03:16 PM Reporting Lab: [facility] [address] [facility] [address] Performing Lab: [facility] [address] [facility] [id number] HBsAg Non Reactive Non Reactive Aug 11, 2023 03:51 PM [facility] CBC Specimen Type: BLOOD No comment entered. Ordering Provider: QUIRINO SHEPHERD AM Report Released Date/Time: Jul 27, 2023 03:16 PM Reporting Lab: [address] [address] Performing Lab: [address] [address] WBC 8.56 10*3/uL 4.50-11.00 RBC 4.55 10*6/uL 4.23-5.66 HGB 14.1 g/dL 12.8-17 HCT 40.7 39.2-50.4 MCV 89.5 fL 82-99 MCHC 34.6 g/dL 30.8-35.1 PLT 313 10*3/uL 140-360 RDW-CV 12.5 12.0-16.0 MCH 31.0 pg 26.2-32.6 Aug 11, 2023 03:51 PM [facility] BASIC METABOLIC PANEL (non-fasting) Specimen Type: SERUM No comment entered. Ordering Provider: QUIRINO SHEPHERD AM Report Released Date/Time: Jul 27, 2023 03:16 PM Reporting Lab: [address] [address] Performing Lab: [address] [address] UREA NITROGEN 18 mg/dL 7-25 GLUCOSE 104 mg/dL H 65-100 SODIUM 138 mmol/L 135-145 POTASSIUM 4.0 mmol/L 3.5-5.0 CHLORIDE 107 mmol/L 100-110 CO2 24 meq/L 20-30 CREATININE, Serum 0.87 mg/dL 0.50-1.40 eGFR(CKD-EPI 2020) >90 mL/min >60 Aug 11, 2023 03:51 PM [facility] TSH Specimen Type: SERUM No comment entered. Ordering Provider: QUIRINO SHEPHERD AM Report Released Date/Time: Jul 27, 2023 03:16 PM Reporting Lab: [facility] [address] [facility] [address] Performing Lab: [address] [address] TSH 0.75 u[IU]/mL 0.35-5.00 Aug 11, 2023 03:51 PM [facility] LIPID PANEL, NON FASTING Specimen Type: SERUM No comment entered. Ordering Provider: QUIRINO SHEPHERD AM Report Released Date/Time: Jul 27, 2023 03:16 PM Reporting Lab: [address] [address] Performing Lab: [address] [address] CHOLESTEROL 203 mg/dL H TRIGLYCERIDE 260 mg/dL H 0-150 LDL calculated 117 mg/dL 0-129 CHOL/HDL 6.0 HDL CHOLESTEROL 34 mg/dL L 40-60 Aug 11, 2023 03:51 PM [facility] HEMOGLOBIN A1C PANEL Specimen Type: BLOOD Comment: Values obtained from A1C measurements can vary. For atypical A1C assays, a reported value of 7.0 could actually be between 6.72 and 7.28 if measured by a reference method. A reported value of 9.0 could actually be between 8.73 and 9.27. Ref: http://www.ngs p.org/CAPdata. asp Ordering Provider: QUIRINO SHEPHERD AM Report Released Date/Time: Jul 27, 2023 03:16 PM Reporting Lab: [address] [address] Performing Lab: [address] [address] HEMOGLOBIN A1C 5.3 4.0-5.6 Aug 11, 2023 03:51 PM [facility] LIVER FUNCTION Specimen Type: SERUM No comment entered. Ordering Provider: QUIRINO SHEPHERD AM Report Released Date/Time: Jul 27, 2023 03:16 PM Reporting Lab: [address] [place] [address] Performing Lab: [place] [facility] [place] [facility] [address] [facility] [address] PROTEIN,TOTAL 7.3 g/dL 6.0-8.3 ALBUMIN 3.8 g/dL 3.5-5.0 ALKALINE PHOSPHATASE 94 U/L 40-150 AST 37 U/L H 5-34 ALT 80 U/L H BILIRUBIN, TOTAL 0.4 mg/dL 0.2-1.2 Vital Signs: All taken on the encounter date This section contains inpatient and outpatient Vital Signs collected on the date of the Encounter. Date/Time Temperature Pulse Blood Pressure Respiratory Rate SP02 Pain Height Weight Body Mass Index Source Aug 11, 2023 03:02 PM 97.8 71 148/90 18 97 0 69 222 33 [place] [facility] [facility] Social History: Smoking Status (Most current) [...] 11, 2023 03:00 PM VA-TOBACCO NEVER USED [place] [facility] [place] [facility] Tobacco Use History This section includes a history of the smoking, or tobacco-related health factors, that were collected on or before the date of the Encounter. The data comes from the [place] facility where the Encounter took place. Date/Time Smoking Status/Tobacco Use Comment F acility Aug 12, 2022 03:30 PM VA-TOBACCO NEVER USED [facility] [place] [facility] Aug 12, 2021 03:30 PM VA-TOBACCO NEVER USED [facility] [place] [facility] Aug 03, 2020 03:00 PM VA-TOBACCO NEVER USED [facility] [place] [facility] Encounter Notes: All associated encounter notes This section contains the clinical notes associated to the Encounter. Date/Time Encounter Note(s) Provider Source Aug 11, 2023 03:44 PM PRIMARY CARE NURSE PRACTITIONER OUTPATIENT NOTE: LOCAL TITLE: NURSE PRACTITIONER OUTPATIENT NOTE STANDARD TITLE: PRIMARY CARE NURSE PRACTITIONER OUTPATIENT NOTE DATE OF NOTE: AUG 11, 2023@15:44 ENTRY DATE: AUG 11, 2023@15:44:49 AUTHOR: CEDRIC SHEPHERD COSIGNER: URGENCY: STATUS: COMPLETED Chief complaint: Patient is a 38 year old Elmo. HPI: Pleasant male Elmo here to follow up. He does report he had an outbreak in his groin area x2 and was diagnosed with HSV II. Otherwise, increased rhinitits, will trial fluticasone. He also reports he is BRCA2 and is requesing annual skin exam. Allergies: Patient has answered NKA The following VA and Non-VA meds were reconciled with patient. The patient was educated on the use of the medications including indication and side effects. Active and Recently Outpatient Medications (excluding Supplies): Active Outpatient Medications Status = 1) FLUTICASONE PROP 50MCG 120D NASAL INHL INSTILL 1 ACTIVE SPRAY INTO EACH NOSTRIL TWICE DAILY FOR NASAL IRRITATION/INFLAMMATION Review of Systems: Constitutional: (-)for Fevers, chills, weakness, nights sweats On examination: 97.8 F [36.6 C] (08/11/2023 15:02)148/90 (08/11/2023 15:02)71 (08/11/2023 15:02)18 (08/11/2023 15:02)0 (08/11/2023 15:02)BMI: 32.9222 lb [100.70 kg] (08/11/2023 15:02) Elmo is alert and oriented X3 Cardiovasc: 2plus carotids without bruits, no JVD Heart Reguler rate and rhythm NL S1S2 no S3 or murmur Respiration: Normal respiratory effort, lungs clear ABD: Benign normal active bowel sounds no HSM no rebound or referred pain EXT: no clubbing, edema, or cyanosis Assessment/plan: Active problems - Computerized Problem List is the source for the followin. BRCA2 melanoma risk - refer to derm for exam 2. HSV2 - counseled 3. rhinitis - see above 4. hypertension - repeat 134/78 5. HLD - discussed goals, diet strats, labs 6. Elevated LFTs - improving Review of medial record = 5mins Time spent with Patient including shared decision making = 20 mins Post visit documentation = 5mins Total time = 30 mins Follow up visit in 6 mos. Alert to PACT RN - Labs as necessary to address clinical status. Toxic Exposure Screening: The Elmo/caregiver was asked if they believe the Elmo experienced any toxic exposure(s), such as Airborne Hazards and Open Burn Pit, [place] War related exposures, Agent [place], Radiation, contaminated water at [place] or other such exposures, while serving in the [employer]. has no concerns about toxic exposure(s) while serving in the [employer]. The Elmo/caregiver was informed that we will continue to ask this screening question every 5 years. They can contact their provider/healthcare team if they have concerns about exposures and would like to be screened sooner. Printed information was offered and provided if desired. HTN Assess for Elevated BP>=140/90: Repeat blood pressure: 134/78 The patient's blood pressure is usually adequately controlled. No medication changes are indicated at this time. Medication Reconciliation: Outpatient: Has the patient been taking medications as documented in the EMLR? YES: The patient has been taking medications as documented in the EMLR. Essential Medication List for Review used to complete this medication reconciliation. INCLUDED IN THIS LIST: Alphabetical list of active outpatient prescriptions dispensed from this VA (local) and dispensed from another VA or [facility]D facility (remote) as well as [...] whether with a VA or non-VA provider. /jonathan/ Cedric Shepherd DNP, ROLLER SETTER-BC, CNL Primary Care Nurse Practitioner Signed: 08/22/2023 15:41 CEDRIC SHEPHERD [place] [facility] Aug 11, 2023 03:17 PM PRIMARY CARE NURSE PRACTITIONER OUTPATIENT NOTE: LOCAL TITLE: NURSE PRACTITIONER OUTPATIENT NOTE STANDARD TITLE: PRIMARY CARE NURSE PRACTITIONER OUTPATIENT NOTE DATE OF NOTE: AUG 11, 2023@15:17 ENTRY DATE: AUG 11, 2023@15:17:16 AUTHOR: CEDRIC SHEPHERD EXP COSIGNER: URGENCY: STATUS: COMPLETED [facility] [address] [place] [address] [facility] Toll Free Number Primary Care Telephone Assistance can be reached at extension [phone] [facility] scheduling can be reached at extension [phone] [facility] scheduling can be reached at ext [phone] AUG 11, 2023 TRACY LARA [address], [address] TO Whom It May Concern: Tracy Lara is a patient in my clinic. He was seen today for medical follow up. Sincerely, MAURI Wayne DNP, MARYSOL Nurse Practitioner Primary Care PACT Seven /es/ MAURI Ordoñez DNP, MARYSOL Primary Care Nurse Practitioner Signed: 08/11/2023 15:24 CEDRIC SHEPHERD [facility] Aug 11, 2023 03:04 PM PREVENTIVE MEDICINE NURSING NOTE: LOCAL TITLE: CLINICAL REMINDERS/NURSING STANDARD TITLE: PREVENTIVE MEDICINE NURSING NOTE DATE OF NOTE: AUG 11, 2023@15:04 ENTRY DATE: AUG 11, 2023@15:04:35 AUTHOR: RICHAR POWER EXP COSIGNER: URGENCY: STATUS: COMPLETED Advance Directive Screen MH AD: Patient does not have a completed advance directive on file at any facility, [place] or outside. S/he is not interested in completing one at this time. The patient received education about Advance Directives and written notification of his/her rights. Tobacco Use Screening: The patient has never used tobacco. Alcohol Use Screen (AUDIT-C): Alcohol Screen: SCREEN FOR ALCOHOL (AUDIT-C) An alcohol screening test (AUDIT-C) was negative (score=1). 1. How often did you have a drink containing alcohol in the past year? Consider a drink to be a 12 ounce can or bottle of regular beer, 8 ounces of malt liquor, a 5 ounce glass of table wine, or a 1.5 ounce shot of liquor (like scotch, gin, or vodka). Monthly or less 2. How many drinks containing alcohol did you have on a typical day when you were drinking in the past year? One or two drinks 3. How often did you have six or more drinks on one occasion in the past year? 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
--- OUTSIDE RECORDS SUMMARY | 2024-08-01 17:37 | XMS_ITS | Encounter Summary ---
Author Name [facility] [place] [facility] [place] [facility] [place] Address [address] [place] [address] Care Team Providers Care Housing Management Representative Name Role Phone CEDRIC CLARK Primary Care [...] Policy [facility] SCH L DEPT Dec 04, 2023 [id number] [phone] [phone] FR SARBJIT HAYES PATIENT Selected Encounter This section includes the information on record at [place] for the Encounter. Date/Time Encounter Type Encounter Description Reason Provider Source Aug 24, 2023 03:00 PM PSYTX W PT 45 MINUTES [facility] - IND ICD-10-CM F33.8 Other recurrent depressive disorders KRANTHI RIVERA Encounter Template Text not used by [place] Assessments - Encounter Diagnoses This section includes the primary and secondary diagnoses documented for the Encounter. Date/Time Primary/Secondary Diagnosis Diagnosis Name Provider Source Aug 24, 2023 04:04 PM PRIMARY Other recurrent depressive disorders KRANTHI RIVERA [place] [facility] [place] [facility] Plan of Treatment: Future Appointments (+ 6 months) and Future Tests (+/- 45 days) The Plan of Treatment section includes future care activities for the patient from all [place] [facility]. This section includes future appointments and future orders which are active, pending or scheduled. Future Appointments This section includes appointments that were scheduled to occur 6 months from the date of the Encounter, up to a maximum of 20 appointments. The data comes from all [place] treatment facilities. Appointment Date/Time Appointment Type Appointme nt Facility Name Sep 14, 2023 03:00 PM AMBULATORY - [facility]ATRY [facility] [place] [facility] Sep 19, 2023 01:00 PM AMBULATORY - PS[facility]AT[facility] [place] [facility] October 12, 2023 03:00 PM AMBULATORY - [facility] [place] [facility] October 19, 2023 03:00 PM AMBULATORY - PS[facility] [place] [facility] October 26, 2023 03:00 PM AMBULATORY - PS[facility]IATRY [facility] [place] [facility] Nov 16, 2023 03:00 PM AMBULATORY - PS[facility]AT[facility] [place] [facility] Nov 23, 2023 03:00 PM AMBULATORY - PS[facility]AT[facility] [place] [facility] Nov 30, 2023 03:00 PM AMBULATORY - PS[facility] [place] [facility] Dec 14, 2023 03:00 PM AMBULATORY - PS[facility]IAT[facility] [place] [facility] Dec 21, 2023 03:00 PM AMBULATORY - [facility] [place] [facility] Jan 04, 2024 02:00 PM AMBULATORY - PS[facility]AT[facility] [place] [facility] Jan 11, 2024 02:00 PM AMBULATORY - PS[facility]IAT[facility] [place] [facility] Jan 18, 2024 02:00 PM AMBULATORY - PS[facility] [place] [facility] Feb 01, 2024 03:00 PM AMBULATORY - PS[facility] [place] [facility] Feb 15, 2024 03:00 PM AMBULATORY - [facility]AT[facility] [place] [facility] Feb 16, 2024 03:00 PM AMBULATORY - MEDICINE [facility] [place] [facility] Lab Results: +/- 30 days of the encounter This section includes the Chemistry and Hematology Lab Results on record with [place] for the patient. Radiology Reports and Pathology Reports are provided separately, in subsequent sections. Lab Results This section contains the Chemistry/Hematology Results that were resulted 30 days before or 30 daysafter the date of the Encounter. Date/Time Source Result Type Result - Unit Interpretation Reference Range Comment Aug 11, 2023 03:51 PM [facility] THYROID T4 FREE(FT4) Specimen Type: SERUM No comment entered. Ordering Provider: QUIRINO CLARK AM Report Released Date/Time: Jul 27, 2023 03:16 PM Reporting Lab: [facility] [address] [facility] [address] Performing Lab: [facility] [address] [address] THYROID T4 FREE(FT4) 1.14 ng/dL 0.6-1.6 Aug 11, 2023 03:51 PM [facility] HEPATITIS B SURFACE ANTIGEN (HBsAg)-WH Specimen Type: SERUM Comment: A Reactive result ( Positive prior to 03/18/13) is diagnostic of acute or chronic hepatitis B infection. The presence of Hepatitis B surface antigen is frequently associated with infectivity. Ordering Provider: QUIRINO CLARK AM Report Released Date/Time: Jul 27, 2023 03:16 PM Reporting Lab: [address] [address] Performing Lab: [facility] [address] [address] HBsAg Non Reactive Non Reactive Aug 11, 2023 03:51 PM [facility] CBC Specimen Type: BLOOD No comment entered. Ordering Provider: QUIRINO CLARK AM Report Released Date/Time: Jul 27, 2023 03:16 PM Reporting Lab: [facility] [address] [facility] [address] Performing Lab: [address] [address] WBC 8.56 10*3/uL 4.50-11.00 RBC 4.55 10*6/uL 4.23-5.66 HGB 14.1 g/dL 12.8-17 HCT 40.7 39.2-50.4 MCV 89.5 fL 82-99 MCHC 34.6 g/dL 30.8-35.1 PLT 313 10*3/uL 140-360 RDW-CV 12.5 12.0-16.0 MCH 31.0 pg 26.2-32.6 Aug 11, 2023 03:51 PM [facility] BASIC METABOLIC PANEL (non-fasting) Specimen Type: SERUM No comment entered. Ordering Provider: QUIRINO CLARK AM Report Released Date/Time: Jul 27, 2023 03:16 PM Reporting Lab: [address] [address] Performing Lab: [address] [address] UREA NITROGEN 18 mg/dL 7-25 GLUCOSE 104 mg/dL H 65-100 SODIUM 138 mmol/L 135-145 POTASSIUM 4.0 mmol/L 3.5-5.0 CHLORIDE 107 mmol/L 100-110 CO2 24 meq/L 20-30 CREATININE, Serum 0.87 mg/dL 0.50-1.40 eGFR(CKD-EPI 2020) >90 mL/min >60 Aug 11, 2023 03:51 PM [facility] TSH Specimen Type: SERUM No comment entered. Ordering Provider: QUIRINO CLARK AM Report Released Date/Time: Jul 27, 2023 03:16 PM Reporting Lab: [address] [address] Performing Lab: [address] [address] TSH 0.75 u[IU]/mL 0.35-5.00 Aug 11, 2023 03:51 PM [facility] LIPID PANEL, NON FASTING Specimen Type: SERUM No comment entered. Ordering Provider: QUIRINO CLARK AM Report Released Date/Time: Jul 27, 2023 03:16 PM Reporting Lab: [address] [place] [address] Performing Lab: [address] [address] CHOLESTEROL 203 mg/dL H TRIGLYCERIDE 260 mg/dL H 0-150 LDL calculated 117 mg/dL 0-129 CHOL/HDL 6.0 HDL CHOLESTEROL 34 mg/dL L 40-60 Aug 11, 2023 03:51 PM [facility] HEMOGLOBIN A1C PANEL Specimen Type: BLOOD Comment: [...] Jul 27, 2023 03:16 PM Reporting Lab: [address] [address] Performing Lab: [address] [address] HEMOGLOBIN A1C 5.3 4.0-5.6 Aug 11, 2023 03:51 PM [facility] LIVER FUNCTION Specimen Type: SERUM No comment entered. Ordering Provider: QUIRINO CLARK AM Report Released Date/Time: Jul 27, 2023 03:16 PM Reporting Lab: [address] [address] Performing Lab: [address] [address] PROTEIN,TOTAL 7.3 g/dL 6.0-8.3 ALBUMIN 3.8 g/dL 3.5-5.0 ALKALINE PHOSPHATASE 94 U/L 40-150 AST 37 U/L H 5-34 ALT 80 U/L H BILIRUBIN, TOTAL 0.4 mg/dL 0.2-1.2 Social History: Smoking Status (Most current) and Tobacco Use (All prior to encounter date) This section includes the most current, and the historical, smoking and tobacco- related health factors from the [place] facility where the Encounter took place. Current Smoking Status This section includes the most current smoking, or tobacco-related health factor, from the [place] facility where the Encounter took place. Date/Time Current Smoking Status Comment Tato alvarezy Aug 11, 2023 03:00 PM VA-[facility]ACCO NEVER USED [place] [facility] [place] [facility] Tobacco Use History This section includes a history of the smoking, or tobacco-related health factors, that were collected on or before the date of the Encounter. The data comes from the [place] facility where the Encounter took place. Date/Time Smoking Status/Tobacco Use Comment F acility Aug 12, 2022 03:30 PM VA-TOBACCO NEVER USED [facility] [place] [facility] Aug 12, 2021 03:30 PM VA-TOBACCO NEVER USED [facility] [place] [facility] Aug 03, 2020 03:00 PM VA-TOBACCO NEVER USED [place] [facility] [place] [facility] Encounter Notes: All associated encounter notes This section contains the clinical notes associated to the Encounter. Date/Time Encounter Note(s) Provider Source Aug 24, 2023 04:01 PM MENTAL HEALTH [facility] TMENT PLAN NOTE: LOCAL TITLE: MH TREATMENT PLAN STANDARD TITLE: MENTAL HEALTH TREATMENT PLAN NOTE DATE OF NOTE: AUG 24, 2023@16:01:15 ENTRY DATE: AUG 24, 2023@16:01:24 AUTHOR: MARIE RIVERA EXP COSIGNER: URGENCY: STATUS: COMPLETED MH TREATMENT PLAN - Aug, @ 04:01PM Visit Date: Aug, @ 15:00 - CWM/NO/VVC/MHC/[facility] MH STRIPPING SHOVEL OPERATOR: MARIE RIVERA / ROBERT BRITO Jimy TEAM MEMBERS: MARIE RIVERA: PSYCHOLOGIST RISK ASSESSMENT (DANGER TO SELF AND OTHERS): Low risk to self or others PATIENT'S PERCEPTION OF NEEDS AND PREFERENCES: I need help grieving losses and responding adaptively to upsetting thoughts and feelings. I need help strengthening my use of mindfulness and being realistic about my expectations of myself. PATIENT'S RESTRICTIONS: None PATIENT'S PRIVILEGES: All outpatient PATIENT'S STRENGTHS/ABILITIES: Expressed desire/motivation for change Accepts guidance/feedback Employed or has income/benefits Leadership skills Education Resiliency Kindness and generosity TREATMENT PLAN: Problem: Difficulty coping with worry thoughts and feelings of sadness Goal: Increased ability to be present in the moment. Increased ability to understand what is within and outside of one's control. Increased understanding of personal values and engagement in value- driven behaviors, despite distressing thoughts and feelings. Objective: [place] will engage in mindful awareness and experiential activities. [place] will engage in activities between session to move in valued directions. Projected Target Date: 11/16/2023 Intervention: 12-16 session of individual therapy utilizing ACT-Depression Providers: MARIE RIVERA Time Frame: One time per week for 12 weeks Treating Specialty: Mental Health Clinic Renewal Date: 08/23/2024 Entered Treatment: 11/25/2022 @ 08:10AM Anticipated Discharge: None Actual Discharge: None UPDATED/RESOLVED/INACTIVA IVON PROBLEMS & COMMENTS: RESOLVED PROBLEM: Difficulty coping with multiple losses and psychosocial stressors Comments: has committed to an episode of ACT-Depression as a next step in therapy. 08/24/2023 (by MARIE RIVERA) RESOLVED GOAL: Increased ability to allow feelings, including sadness and grief, to come and go without resisting. Increased ability to engage in value-driven actions, despite distressing thoughts and feelings. Comments: Resolved by resolving problem. 08/24/2023 (by MARIE RIVERA) RESOLVED OBJECTIVE: [place] will engage actively in individual therapy sessions to increase ability to be present in the moment, to tolerate distressing thoughts and feelings, and to grieve significant losses, including the of his sister. Comments: Resolved by resolving problem. 08/24/2023 (by MARIE RIVERA) RESOLVED INTERVENTION: Weekly individual therapy appointments utilizing aspects of Acceptance and Commitment Therapy as well as Cognitive Behavioral Therapy. Comments: Resolved by resolving problem. 08/24/2023 (by MARIE RIVERA) PARTICIPATION IN TREATMENT PLANNING: Relevant treatment options, including evidence-based interventions, were considered and discussed with the . Risks, benefits, and potential complications were discussed with the . AGREED TO PLAN DISCUSSED. Other [place] Services: psychiatry services /jonathan/ Marie Rivera, PhD Clinical Psychologist, Mental Health Clinic Signed: 08/24/2023 16:01 MARIE RIVERA [place] [facility] [place] [facility] Aug 24, 2023 03:11 PM TELEHEALTH NOTE: LOCAL TITLE: [place] VIDEO CONNECT PSYCHOLOGY NOTE STANDARD TITLE: TELEHEALTH NOTE DATE OF NOTE: AUG 24, 2023@15:11 ENTRY DATE: AUG 24, 2023@15:11:32 AUTHOR: MARIE RIVERAIGNER: URGENCY: STATUS: COMPLETED Outpatient Mental Health Clinic Individual Therapy Note (VVC) [place] [facility] (cl[facility] to [facility] location) [place]'s location: Provider confirmed that is currently located at Primary Address listed in [place] [facility] Connect consult and verified the contact phone number has provided verbal consent either today or previously when seen via VVC in mental health. This consent was obtained after a full explanation of the risk and benefits of using telehealth for mental health appointments. Alternatives for obtaining care through an in-person mental health visit and the [place]'s right of refusal at any time during this session have been explained. 's location/environment was surveyed by this provider to identify all participants and the Virtual Medical Room was locked (via enabling button option in VMR) once all invited/required attendees were present. Procedure: The patient was seen for a 50-minute [facility] individual psychotherapy session The Outpatient Individual Psychotherapy Services Agreement was reviewed on 08/24/23. Agreed to meet for 12 weekly to twice monthly individual therapy appointments utilizing Acceptance and Committment Therapy for Depression (ACT- D). Problem: Difficulty managing distressing thoughts and feelings related to stressors and deaths of loved ones Objectives: [place] will engage in individual, weekly psychotherapy to increase his ability to tolerate distressing emotional experiences and to engage in behaviors that are consistent with his values. Progress: [place] spoke about recent experiences hosting an event and being in a crowded situation. He reflected upon strategies he is using to identify and lessen expectations of himself as well as be kind and reasonable with himself. Discussed the idea of ACT-D as a next step to deepen use of mindful awareness and some of the shifts [place] is already making in terms of how he is relating to his thoughts and feelings. Agreed to begin ACT-D work in next session and committed to complete self-report questionaires sent via text through [employer]. Assessment: arrived on time and was dressed [...] ideation without lifetime intent, plan, or behavior. [place] was reminded of emergency resources through this [facility] and the [employer] Crisis Line number. Thus, current assessment of risk for suicide and homicide is low. DSM 5 Diagnostic Impressions Per Chart: Major Depressive Disorder, mild Plan: [place]'s next visit is scheduled for August at 3pm via [facility]. /jonathan/ Marie Rivera, PhD Clinical Psychologist, Mental Health Clinic Signed: 08/24/2023 16:04 MARIE RIVERA [place] [facility]
--- OUTSIDE RECORDS SUMMARY | 2024-08-01 17:37 | XMS_ITS | Encounter Summary ---
Author Name [facility] [place] Address [address] [place] [address] Care Team Providers Care Sales Representative Metals Name Role Phone CEDRIC CLARK Primary Care [...] Brooks's Name Patient's Relationship to Policy Brooks [facility] ORGANIZAT ION [facility] DEPT Dec 04, 2023 [id number] [phone] [id number] [phone] FR SARBJIT HAYES PATIENT Selected Encounter This section includes the information on record at [place] for the Encounter. Date/Time Encounter Type Encounter Description Reason Provider Source Nov 16, 2023 03:00 PM PSYTX W PT 60 MINUTES [facility] CLINIC - IND ICD-10-CM F33.8 Other recurrent depressive disorders KRANTHI RIVERA Encounter Template Text not used by [place] Assessments - Encounter Diagnoses This section includes the primary and secondary diagnoses documented for the Encounter. Date/Time Primary/Secondary Diagnosis Diagnosis Name Provider Source Nov 16, 2023 04:15 PM PRIMARY Other recurrent depressive disorders KRANTHI RIVERA [place] [facility] [place] [facility] Plan of Treatment: Future Appointments (+ 6 months) and Future Tests (+/- 45 days) The Plan of Treatment section includes future care activities for the patient from [facility] [place] [facility] This section includes future appointments and future orders which are active, pending or scheduled. Future Appointments This section includes appointments that were scheduled to occur 6 months from the date of the Encounter, up to a maximum of 20 appointments. The data comes from all [place] treatment facilities. Appointment Date/Time Appointment Type Appointme nt Facility Name Nov 23, 2023 03:00 PM AMBULATORY - PS[facility]CHIATRY [facility] [place] [facility] Nov 30, 2023 03:00 PM AMBULATORY - PSYCHIATRY [facility] [place] [facility] Dec 14, 2023 03:00 PM AMBULATORY - PSYCHIATRY [facility] [place] [facility] Dec 21, 2023 03:00 PM AMBULATORY - PSYCHIATRY [facility] [place] [facility] Jan 04, 2024 02:00 PM AMBULATORY - PSYCHIATRY [facility] [place] [facility] Jan 11, 2024 02:00 PM AMBULATORY - PSYCHIATRY [facility] [place] [facility] Jan 18, 2024 02:00 PM AMBULATORY - PSYCHIATRY [facility] [place] [facility] Feb 01, 2024 03:00 PM AMBULATORY - PSYCHIATRY [facility] [place] [facility] Feb 15, 2024 03:00 PM AMBULATORY - PSYCHIATRY [facility] [place] [facility] Feb 16, 2024 03:00 PM AMBULATORY - MEDICINE [facility] [place] [facility] Feb 29, 2024 03:00 PM AMBULATORY - PSYCHIATRY [facility] [place] [facility] Mar 12, 2024 01:00 PM AMBULATORY - MEDICINE [facility] [place] [facility] Mar 14, 2024 03:00 PM AMBULATORY - PSYCHIATRY [facility] [facility] Mar 28, 2024 03:00 PM AMBULATORY - PSYCHIATRY [facility] [facility] Apr 18, 2024 03:00 PM AMBULATORY - PSYCHIATRY [facility] [facility] May 01, 2024 03:00 PM AMBULATORY - PSYCHIATRY [facility] [place] [facility] May 08, 2024 10:00 AM AMBULATORY - MEDICINE [place] [facility] [facility] May 16, 2024 03:00 PM AMBULATORY - PSYCHIATRY [place] [facility] [facility] Social History: Smoking Status (Most current) and [...] 11, 2023 03:00 PM VA-TOBACCO NEVER USED [place] [facility] [facility] Tobacco Use History This section includes a history of the smoking, or tobacco-related health factors, that were collected on or before the date of the Encounter. The data comes from the [place] facility where the Encounter took place. Date/Time Smoking Status/Tobacco Use Comment F acility Aug 12, 2022 03:30 PM VA-TOBACCO NEVER USED [place] [facility] [place] [facility] Aug 12, 2021 03:30 PM VA-TOBACCO NEVER USED [place] [facility] [facility] Aug 03, 2020 03:00 PM VA-TOBACCO NEVER USED [place] [facility] [facility] Encounter Notes: All associated encounter notes This section contains the clinical notes associated to the Encounter. Date/Time Encounter Note(s) Provider Source Nov 16, 2023 04:13 PM MENTAL HEALTH DIAG NOSTIC STUDY NOTE: LOCAL TITLE: MENTAL HEALTH DIAGNOSTIC STUDY STANDARD TITLE: MENTAL HEALTH DIAGNOSTIC STUDY NOTE DATE OF NOTE: NOV 16, 2023@16:13:16 ENTRY DATE: NOV 16, 2023@16:13:16 AUTHOR: ROBER RIVERA EXP COSIGNER: URGENCY: STATUS: COMPLETED Assessments were sent to the via text/email. These assessments were completed by TRACY HAYES on their own device on 11/16/2023 4:11:41 PM. PATIENT HEALTH QUESTIONNAIRE-9 (PHQ-9) The patient [...] others. PHQ-9 Total Score (past 180 days): 11/16/2023 4 10/19/2023 7 09/14/2023 4 THE ACCEPTANCE AND ACTION QUESTIONNAIRE-II (AAQ-II) The patient rated how true each statement is for them as follows: 1. It's OK if I remember something unpleasant: Frequently true 2. My painful experiences and memories make it difficult for me to live a life that I would value: Never true 3. I am afraid of my [...] live my life: Frequently true Total Score: 52 Scores range from 10 to 70 with higher scores indicating greater psychological flexibility. AAQ-II Total Score (past 180 days): 11/16/2023 52 10/19/2023 50 09/14/2023 43 /es/ Rober Rivera, PhD Clinical Psychologist, Mental Health Clinic Signed: 11/16/2023 16:15 ROBER RIVERA [place] [facility] [place] [facility] Nov 16, 2023 03:25 PM MENTAL HEALTH NOTE : LOCAL TITLE: ACT DEPRESSION THERAPY NOTE STANDARD TITLE: MENTAL HEALTH NOTE DATE OF NOTE: NOV 16, 2023@15:25 ENTRY DATE: NOV 16, 2023@15:25:23 AUTHOR: ROBER RIVERA EXP COSIGNER: URGENCY: STATUS: COMPLETED Outpatient Mental Health Clinic Individual Therapy Note (VVC) Acceptance and Commitment Therapy for Depression [place] [employer] [facility] (clinic to non-VA location) [place]'s location: Provider confirmed that is currently located at Primary Address listed in [place] [employer] [facility] consult and verified the contact phone number has provided verbal consent either today or previously when seen via VVC in mental health. This consent was obtained after a full explanation of the risk and benefits of using telehealth for mental health appointments. Alternatives for obtaining care through an in-person mental health visit and the [place]'s right of refusal at any time during this session have been explained. [place]'s location/environment was surveyed by this provider to identify all participants and the Virtual Medical Room was locked (via enabling button option in R) once all invited/required attendees were present. [place] identified with 2 identifiers: [X] Patient Name [...] with his values. Progress: Completed ACT-D session 5. See content below. Assessment: [place] arrived on time and was dressed appropriately with appropriate hygiene. He maintained appropriate eye contact and was alert. [place] spoke clearly and coherently. His thoughts were linear and related. His affect was congruent to content and appropriate in range. There was no evidence of AH/VH or delusions. There was no evidence of SI or HI. was future oriented, clearly invested in improving the quality of his life. He reported a history of passive, fleeting suicidal ideation without lifetime intent, plan, or behavior. [place] was reminded of emergency resources through this [facility] and the [employer] Crisis Line number. Thus, current assessment of risk for suicide and homicide is low. DSM 5 Diagnostic Impressions Per Chart: Major Depressive Disorder, mild Plan: [place]'s next visit is scheduled for November at 3pm via VVC. ~~~ ACT for Depression - Action Phase Time in session (in minutes): 50 SESSION NUMBER: 5 SESSION FORMAT Video Telehealth Session SESSION LOCATION Mental Health Clinic DIAGNOSIS: Primary (focus of treatment): Major Depressive Disorder, mild Treatment objectives for this action phase session of Acceptance and Commitment Therapy (ACT) for depression included: building acceptance, defusing language The following Core Processes were facilitated in this session: Acceptance and Willingness exercises employed in this session included: If You are Not Willing to Have it, You've Got It Exercise Two Scales - Pain and Willingness Metaphor The discussion with the [place] related to Acceptance and Willingness included: Identifying the value of awareness and catching what is showing up in order to be able to respond differently. Contact with the Present moment and mindfulness exercises employed in this session include: Breathing Exercises Other Exercise: mindfully turning up and down the volume on parts of experience The discussion with the related to Contact with the Present Moment included: reflecting on willingness to be in the moment and feelings of relaxation given chose to let go of a control agenda Homework/Practice Assignment: practice mindful awareness, turn up the willingness knob COLLABORATION The degree of collaboration between the and the therapist in the current session was high. Description of collaboration in this session: was actively engaged in the discussion and metaphor exploration PLAN Next session planned for agreed upon date/time of: November at 3pm via VVC /jonathan/ Rober Rivera, PhD Clinical Psychologist, Mental Health Clinic Signed: 11/16/2023 16:15 [facility]
--- OUTSIDE RECORDS SUMMARY | 2024-08-01 17:37 | XMS_ITS | Encounter Summary ---
Author Name [facility] [place] Organization [place] Address [address] [place] [address] Care Team Providers Care Fios Line Installer Name Role Phone CEDRIC CLARK Primary Care [...] Brooks's Name Patient's Relationship to Policy Brooks [facility] ORGANIZAT ION [facility] DEPT Dec 04, 2023 [id number] [phone] [phone] FR SARBJIT HAYES PATIENT Selected Encounter This section includes the information on record at [place] for the Encounter. Date/Time Encounter Type Encounter Description Reason Provider Source Feb 01, 2024 03:00 PM PSYTX W PT 60 MINUTES [facility]ENT[facility] CLINIC - IND ICD-10-CM F33.8 Other recurrent depressive disorders KRANTHI RIVERA Encounter Template Text not used by [place] Assessments - Encounter Diagnoses This section includes the primary and secondary diagnoses documented for the Encounter. Date/Time Primary/Secondary Diagnosis Diagnosis Name Provider Source Feb 01, 2024 04:03 PM PRIMARY Other recurrent depressive disorders KRANTHI RIVERA [place] [facility] [place] [facility] Plan of Treatment: Future Appointments (+ 6 months) and Future Tests (+/- 45 days) The Plan of Treatment section includes future care activities for the patient [facility] [place] [facility] This section includes future appointments and future orders which are active, pending or scheduled. Future Appointments This section includes appointments that were scheduled to occur 6 months from the date of the Encounter, up to a maximum of 20 appointments. The data comes from all [facility]. Appointment Date/Time Appointment Type Appointme nt Facility Name Feb 15, 2024 03:00 PM AMBULATORY - PSYCHIATRY [place] [facility] [place] [facility] Feb 16, 2024 03:00 PM AMBULATORY - MEDICINE [place] [facility] [facility] Feb 29, 2024 03:00 PM AMBULATORY - PSYCHIATRY [place] [facility] [facility] Mar 12, 2024 01:00 PM AMBULATORY - MEDICINE [place] [facility] [facility] Mar 14, 2024 03:00 PM AMBULATORY - PSYCHIATRY [place] [facility] [place] [facility] Mar 28, 2024 03:00 PM AMBULATORY - PSYCHIATRY [place] [facility] [place] [facility] Apr 18, 2024 03:00 PM AMBULATORY - PSYCHIATRY [facility] [place] [facility] May 01, 2024 03:00 PM AMBULATORY - PSYCHIATRY [facility] [place] [facility] May 08, 2024 10:00 AM AMBULATORY - MEDICINE [place] [facility] [place] [facility] May 16, 2024 03:00 PM AMBULATORY - PSYCHIATRY [facility] [place] [facility] Jul 18, 2024 03:00 PM AMBULATORY - PSYCHIATRY [place] [facility] [place] [facility] Jul 24, 2024 10:30 AM AMBULATORY - PSYCHIATRY [place] [facility] [facility] Aug 01, 2024 03:00 PM AMBULATORY - PSYCHIATRY [place] [facility] [facility] Active, Pending, and Scheduled Orders This [...] Chemi stry Order CBC BLOOD (LAV-BLOOD) [facility] Feb 16, 2024 12:00 AM Laboratory - Chemi stry Order OCCULT BLOOD FIT X1 SCREEN(IN-HOUSE) STOOL FECES SP [facility] Feb 16, 2024 12:00 AM Laboratory - Chemi stry Order HEPATITIS B SURFACE ANTIBODY (HBsAb)-WH BLOOD (SST-SERUM) [facility] Feb 16, 2024 12:00 AM Laboratory - Chemi stry Order UREA NITROGEN BLOOD (SST-SERUM) [facility] Social History: Smoking Status (Most current) and Tobacco Use (All prior to encounter date) This section includes the most current, and the historical, smoking and tobacco- related health factors from the [place] facility where the Encounter took place. Current Smoking Status This section includes the most current smoking, or tobacco-related health factor, from the [place] facility where the Encounter took place. Date/Time Current Smoking Status Comment Facil ity Aug 11, 2023 03:00 PM VA-TOBACCO NEVER USED [facility] Tobacco Use History This section includes a history of the smoking, or tobacco-related health factors, that were collected on or before the date of the Encounter. The data comes from the [place] facility where the Encounter took place. Date/Time Smoking Status/Tobacco Use Comment F acility Aug 12, 2022 03:30 PM [facility] Aug 12, 2021 03:30 PM [facility]CO [facility] Aug 03, 2020 03:00 PM VATOBACCO NEVER USED [facility] Radiology Reports: +/- 30 days of [...] the Encounter. The data comes from all [place] treatment facilities. Date/Time Radiology Report Provider Source Feb 16, 2024 03:43 PM FOOT 3 OR MORE VIE WS (RIGHT): TRACY HAYES [id number] -1985 M Exm Date: FEB 16, 2024@15:43 Req Phys: CEDRIC CLARK Loc: CWM/NO/PACT 7 (Req'g Loc) Img Loc: [facility]BUILDING 1 Service: [place] [address] (Case [id number] COMPLETE) FOOT 3 OR MORE VIEWS (RIGHT) (RAD Detailed) CPT:55418 Proc Modifiers : RIGHT CPT Modifiers : RT RIGHT SIDE Reason for Study: pain Clinical History: Covering resident, fellow, [employer] or attending: Joao KHAN Pager: teams Backup pager: History: pain Report Status: Verified Date Reported: FEB 16, 2024 Date Verified: FEB 16, 2024 Diet Consultant E-Sig:/ES/SUSHMA POWELL JR Report: Study: Weight-bearing AP, [...] Primary Interpreting Staff: SUSHMA POWELL JR, Radiologist (Diet Consultant) /SUSHMA MAGUIRE JR [facility] Encounter Notes: All associated encounter notes This section contains the clinical notes associated to the Encounter. Date/Time Encounter Note(s) Provider Source Feb 01, 2024 03:20 PM MENTAL HEALTH NOTE : LOCAL TITLE: ACT DEPRESSION THERAPY NOTE STANDARD TITLE: MENTAL HEALTH NOTE DATE OF NOTE: FEB 01, 2024@15:20 ENTRY DATE: FEB 01, 2024@15:20:59 AUTHOR: WEISMOORE,ROBER EXP COSIGNER: URGENCY: STATUS: COMPLETED [facility] Individual Therapy Note (VVC) Acceptance and Commitment Therapy for Depression [place] [facility] (clinic to non-VA location) 's location: Provider confirmed that is currently located at Primary Address listed in [place] [facility] consult and verified the contact phone number [place] has provided verbal consent either today or [...] The patient was seen for a 55-minute [facility] individual psychotherapy session The Outpatient Individual Psychotherapy [...] with his values. Progress: Completed ACT-D session 13. See content below. Assessment: Axel arrived on [...] emergency resources through this VA and the [employer] Crisis Line number. Thus, current assessment of risk for suicide and homicide is low. DSM 5 Diagnostic Impressions Per Chart: Major Depressive Disorder, mild Plan: Axel's next visit is scheduled for February at 3pm via VVC. He requested to receive [facility] measures via text message on at 11am. ~~~ Acceptance and Commitment Therapy (ACT) for Depression - Final Session Time in session (in minutes): 55 SESSION NUMBER 13 SESSION FORMAT Video Telehealth Session SESSION LOCATION Mental Health Clinic DIAGNOSIS: Primary (focus of treatment): Major Depressive Disorder, mild ASSESSMENT Date Instrument Raw Trans Scale 02/01/2024 14:51 PHQ9 11 PHQ9 01/18/2024 12:19 PHQ9 9 PHQ9 01/11/2024 11:07 PHQ9 7 PHQ9 01/04/2024 13:35 PHQ9 9 PHQ9 12/21/2023 14:09 PHQ9 6 PHQ9 12/01/2023 16:06 PHQ9 4 PHQ9 11/16/2023 16:11 PHQ9 4 PHQ9 10/19/2023 16:12 PHQ9 7 PHQ9 09/14/2023 13:50 PHQ9 4 PHQ9 SESSION CONTENT This was the final session of ACT. The therapist and reviewed how ACT-relevant processes have led to changes in the [place]'s experience, daily life, and behavioral actions that have improved functioning and/or increased value-based living. For this [place], these processes and changes have included: -taking a birds eye view perspective, defusing from thoughts and feelings-identifying and listening to his personal values and needs-taking actions in line with his values and recognizing that discomfort may arise with any choice he makes COLLABORATION The degree of collaboration between the and the therapist in the current session was high. Description of collaboration in this session: has been actively engaged and reflective on his experiences REVIEW PROGRESS TOWARD TREATMENT GOALS is reporting less worry and time spent struggling with symptoms of anxiety and depression. [place] has been adapting to significant life changes and deaths of loved ones in a skillful manner, with moments of struggle and greater kindness towards himself. PLAN: SCHEDULED POST TREATMENT ASSESSMENT SESSION: Continued assessment and support as reported worry thoughts about ending therapeutic relationship DATE AND TIME OF NEXT SESSION: , February 15, 2024 at 3pm via VVC /es/ Rober Rivera, PhD Clinical Psychologist, Mental Health Clinic Signed: 02/01/2024 16:03 ROBER RIVERA [place] [facility] [facility] Feb 01, 2024 03:11 PM MENTAL HEALTH DIAG NOSTIC STUDY NOTE: LOCAL TITLE: MENTAL HEALTH DIAGNOSTIC STUDY STANDARD TITLE: MENTAL HEALTH DIAGNOSTIC STUDY NOTE DATE OF NOTE: FEB 01, 2024@15:11:22 ENTRY DATE: FEB 01, 2024@15:11:22 AUTHOR: ROBER RIVERA COSIGNER: URGENCY: STATUS: COMPLETED Assessments were sent to the via text/email. These assessments were completed by TRACY HAYES on their own device on 02/01/2024 2:51:30 PM. PATIENT HEALTH QUESTIONNAIRE-9 (PHQ-9) The patient [...] half the days 5. Poor appetite, over-eating: Nearly every day 6. Feelings of failure, guilt: Several Days [...] others. PHQ-9 Total Score (past 180 days): 02/01/2024 11 01/18/2024 9 01/11/2024 7 01/04/2024 9 12/21/2023 6 12/01/2023 4 11/16/2023 4 10/19/2023 7 09/14/2023 4 /es/ Rober Rivera, PhD Clinical Psychologist, Mental Health Clinic Signed: 02/01/2024 15:20 ROBER RIVERA [facility]
== END 2024-08-01 14:39 | disposition home or self-care (01) ==
PROVIDERS: Emergency Provider Emergency Medicine; PCP Family Medicine
DX: M54.16 Radiculopathy, lumbar region (principal); M54.50 Low back pain, unspecified
CPT/HCPCS: 96372; 99282; 99284; J1885